=== PATIENT | female | born 1960 | race Caucasian/White ===

== ENCOUNTER 2019-11-23 22:22 | Emergency (ER) | payer OTHER, SELFPAY ==
--- NOTE | ~2019-11-23 | CT_ITS ---
EXAMINATION: CTA chest PE protocol DATE: 11/24/2019 09:28 CDT INDICATION: Shortness of breath, fever and chest pain. TECHNIQUE: Computed tomographic angiography (CTA) of the chest was performed with 100 mL Omnipaque-35 0 intravenous contrast. The dose-length product was 617.74 mGy-cm. Maximum intensity projection 3D-re constructions of the aorta and other arteries were constructed by the technologist on a separate work station. Automated exposure control and iterative reconstruction technique were employed. COMPARISON: Chest dated 11/24/2019 FINDINGS: Study technically limited by motion artifact. No large central pulmonary embolism. Evaluati on of the peripheral pulmonary arteries is not adequate. Heart size normal. No significant pleural or pericardial effusion. Mild thickening of the distal esophagus. No thoracic lymphadenopathy. There is patchy airspace consolidation of the upper, right middle and lower lobes, consistent with multifocal pneumonia. No pneumothorax. IMPRESSION: 1. Patchy bilateral airspace disease, consistent with multifocal pneumonia. 2: No large central pulmonary embolism. Evaluation of peripheral pulmonary arteries limited by motion artifact. 3: Mildly thickened esophagus, possibly secondary to reflux esophagitis. Reviewed, dictated and finalized at location A. IMPRESSION: 1. Patchy bilateral airspace disease, consistent with multifocal pneumonia. 2: No large central pulmonary embolism. Evaluation of peripheral pulmonary [place] limited by motion artifact. 3: Mildly thickened esophagus, possibly secondary to reflux esophagitis.
--- NOTE | ~2019-11-23 | XR_ITS ---
XR chest 1V portable 11/24/2019 00:54 Indication: Dyspnea, fever and urosepsis. COVID-19. Procedure: AP portable chest Comparison: 01/29/2015 Findings: Low lung volumes. Prominent bilateral interstitial opacities with fullness of the right hil um. The possible small left effusion. No pneumothorax. Impression: 1: Bilateral interstitial opacities with perihilar prevalence, edema versus pneumonia. Reviewed, dictated and finalized at location A. Impression: 1: Bilateral interstitial opacities with perihilar prevalence, edema versus pne umonia.
[2019-11-23 22:36] VITALS: BP 109/57; PULSE 91; RESP 22; TEMP 37.1; O2SAT 98
--- NOTE | 2019-11-23 22:39 | ED.SOB ---
HPI - SOB/Dyspnea General Chief Complaint: Unspecified Stated Complaint: fever, itches, SOB, headache, dizzy Time Seen by Provider: 11/23/19 22:39 Source: patient Mode of arrival: ambulatory Limitations: no limitations History of Present Illness HPI Narrative: 49-year-old woman with a history of COPD on home O2, type 2 diabetes, and obesity comes in today complaining of shortness of breath, dizziness, and diarrhea that started yesterday and a fever up to 101.8 today. She states that she is increasingly short of breath and has a cough productive of yellow-green sputum. She states that she has had frequent and painful urination over the last few days and thinks that she has a UTI. She denies any recent travel or sick contacts. She denies vomiting, rash, syncope. She states she fell little over a week ago and has back pain, right leg pain and left leg bruising. MD elicited complaint: shortness of breath and cough Pertinent past history: COPD, diabetes and tracheostomy Onset (ago): day(s) (2) Context: recent illness Timing: constant and progressively worsening Severity: moderate Exacerbating factors: exertion Relieving factors: oxygen and rest Known history of: COPD and diabetes Associated symptoms: fever, cough, sputum production and lower extremity pain Treatment prior to arrival: oxygen Related Data Home oxygen amount: 2 liters Home Medications Medication Instructions Recorded Confirmed Acetaminophen Extra Strength 1,000 mg PO TID 11/23/19 11/24/19 ascorbate calcium (vitamin C) 500 mg PO DAILY 11/23/19 11/24/19 aspirin [Adult Low Dose Aspirin] 81 mg PO DAILY 11/23/19 11/24/19 atorvastatin 20 mg PO DAILY 11/23/19 11/24/19 famotidine [Acid University Lecturer 20 mg PO BID 11/23/19 11/24/19 (famotidine)] fluticasone propionate [Flovent 1 puff INHALATION BID 11/23/19 11/24/19 HFA] gabapentin [Neurontin] 300 mg PO TID 11/23/19 11/24/19 hydrochlorothiazide 25 mg PO DAILY 11/23/19 11/24/19 ipratropium-albuterol 3 ml INHALATION Q4H PRN 11/23/19 11/24/19 levothyroxine [Synthroid] 88 mcg PO DAILY 11/23/19 11/24/19 lisinopril [Prinivil] 20 mg PO DAILY 11/23/19 11/24/19 loperamide [Imodium A-D] 2 mg PO Q4H PRN 11/23/19 11/24/19 magnesium 400 mg PO DAILY 11/23/19 11/24/19 metformin [Glucophage XR] 500 mg PO BID 11/23/19 11/24/19 sertraline 50 mg PO DAILY 11/23/19 11/24/19 simethicone [Gas-X Extra Strength] 125 mg PO TID 11/23/19 11/24/19 Allergies Allergy/AdvReac Type Severity Reaction Status Date / Time norepinephrine Allergy Intermediate Rash Verified 01/17/15 14:49 Review of Systems Constitutional: Constitutional: Denies chills, Reports fatigue, Reports fever(s) and Reports weakness Eyes: Eyes: Denies change in vision and Denies photophobia ENT: Denies dysphagia, Denies nasal congestion and Denies sore throat Cardiovascular: Cardiovascular: Denies chest pain and Denies radiating jaw, neck or arm pain Respiratory: Respiratory: Reports chest congestion, Reports cough, Reports dyspnea and Reports wheezing Gastrointestinal: Gastrointestinal: Denies abdominal pain, Reports diarrhea, Reports nausea and Denies vomiting Genitourinary: Genitourinary: Denies hematuria, Reports nocturia and Reports dysuria Musculoskeletal: Musculoskeletal: Reports back pain and Reports myalgias Integumentary/Breasts: Skin/Breast: Denies pruritus, Denies erythema and Denies rash Neurologic: Denies vertigo, Denies dizziness and Denies syncope Hematologic/Lymphatic: Hematologic/Lymphatic: Denies easy bleeding and Denies easy bruising Allergic/Immunologic: Allergic/Immunologic: Denies lip swelling and Denies wheezing [facility] Past Medical History Medical History (Updated 11/24/19 @ 05:06 by Sophia Mcdermott DO) 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 2014 Chronic kidney disease Chronic respiratory failure with hypoxia, on home O2 therapy COPD (chronic obstructive pulmonary disease) Diabetic peripheral neuropathy Diastolic CHF Dyslipidemia HSV infection Hypertensio
--- NOTE | 2019-11-23 22:52 | ECG_ITS ---
Measurements Intervals [place] Rate: 82 P: -8 MS: 119 QRS: 5 QRSD: 73 T: 65 QT: 457 QTc: 534 Interpretive Statements SINUS RHYTHM WITH SHORT MS INTERVAL LOW QRS VOLTAGE IN PRECORDIAL LEADS PROLONGED QT INTERVAL BASELINE ARTIFACT- I, III, AVL, AVF ABNORMAL ECG Electronically Signed On 11-24-2019 7:25:09 CDT by Grzegorz Tate D.O.
[2019-11-23] MEDS: SODIUM CHLORIDE 0.9% IV 1,000 ML 999 ML IV CONT ×2 (23:00→23:56)
[2019-11-23 23:20] VITALS: BP 114/56
[2019-11-23 23:21] LABS: Basophils Absolute Auto 0.02 K/mm3 (0.00-0.10); Basophils Percent Auto 0.1 % (0.0-1.0); Eosinophils Absolute Auto 0.46 K/mm3 (0.02-0.50); Eosinophils Percent Auto 3.3 % (1.0-6.0); Immature Granulocyte Absolute 0.08 K/mm3 (0.00-0.00); Immature Granulocyte Percent A 0.6 % (0.0-0.0); Lymphocytes Absolute Auto 0.34 K/mm3 (1.10-4.50); Lymphocytes Percent Auto 2.4 % (18.0-42.0); Mean Corpuscular HGB Conc 33.3 g/dL (32.0-36.0); Mean Corpuscular Hemoglobin 31.8 pg (27.0-31.0); Mean Corpuscular Volume 95.4 fL (78.0-102.0); Mean Platelet Volume 9.5 fl (9.2-11.8); Monocytes Absolute Auto 0.45 K/mm3 (0.10-0.90); Monocytes Percent Auto 3.2 % (2.0-11.0); Neutrophils Absolute Auto 12.7 K/mm3 (1.7-7.2); Neutrophils Percent Auto 90.4 % (50.0-70.0); Platelet Count Result 179 K/mm3 (150-420); Red Blood Count 4.09 M/mm3 (4.20-5.40); Red Cell Distribution Width 12.7 % (11.6-14.4)
[2019-11-23 23:30] VITALS: BP 110/60
[2019-11-23 23:36] LABS: INR 1.1; Partial Thromboplastin Time 27.8 SEC (22.3-31.6)
[2019-11-23 23:38] LABS: Lactic Acid Reflex 4.3 mmol/L (0.4-2.0)
[2019-11-23 23:45] LABS: D Dimer 1.66 mg/L (0.19-0.50)
[2019-11-23 23:46] LABS: Influenza Control Valid (Valid)
[2019-11-23 23:47] LABS: Creatine Kinase 25 U/L (26-192)
[2019-11-23 23:47] LABS: Alanine Aminotransferase 60 U/L (14-59); Albumin Level 3.1 g/dL (3.4-5.0); Alkaline Phosphatase 89 U/L (46-116); Anion Gap 15.2 mmol/L (7-16); Aspartate Amino Transferase 63 U/L (15-37); Bilirubin,Total 0.6 mg/dL (0.00-1.00); Blood Urea Nitrogen 25 mg/dL (7-18); CRP 8.8 mg/dL (0.0-0.9); Calcium 8.8 mg/dL (8.5-10.1); Carbon Dioxide 28 mmol/L (21-32); Chloride 103 mmol/L (98-108); Estimated CRCL calculation 38 ml/min; Estimated Glomerular Filt Rate 33; Glucose 225 mg/dL (70-99); Osmolality Calculated 305 mOsm/kg (285-295); Potassium 4.2 mmol/L (3.5-5.1); Sodium 142 mmol/L (136-145); Total Protein 6.5 g/dL (6.4-8.2)
[2019-11-23] MEDS: ACETAMINOPHEN 500 MG TABLET 1000 MG PO (23:49)
[2019-11-23 23:50] LABS: Appearance Urine Clear (Clear); Bilirubin Urine 1+ (Negative); Color Urine Yellow (Yellow); Glucose Urine UA Negative (Negative); Ketones Urine Trace (Negative); Leukocyte Esterase Ur 2+ LEU/UL (Negative); Nitrate Urine Negative (Negative); Protein Urine Trace (Negative); Specific Grav Ur 1.025 (1.010-1.020)
[2019-11-23 23:54] LABS: Add Urine Microscopic? YES; Bacteria Urine 1+ /hpf; Blood Urine Trace-Intact (Negative); Squamous Epithelial Cell Urine Moderate /hpf (Few); WBC Urine >75 /hpf (0-3)
[2019-11-24] VITALS: BP 112/46
[2019-11-24 00:14] VITALS: BP 99/47; PULSE 80; RESP 178; TEMP 36.9; O2SAT 98
--- NOTE | 2019-11-24 00:14 | PC.NURSE ---
[facility] called for potential transfer.
[2019-11-24 00:28] VITALS: BP 100/41; PULSE 78; RESP 18; O2SAT 98
[2019-11-24 00:58] VITALS: BP 131/60; PULSE 86; RESP 20; TEMP 37.2; O2SAT 99
[2019-11-24] MEDS: ALBUTEROL SULFATE (*SP) INHALER 4 PUFF INHALATION (01:21)
--- NOTE | 2019-11-24 01:34 | PC.NURSE ---
report given, no local ambulance having to wait for another county to transport
[2019-11-24 01:43] VITALS: BP 107/47; PULSE 81; RESP 16; O2SAT 97
[2019-11-24] MEDS: SODIUM CHLORIDE 0.9% IV 500 ML 999 ML IV CONT (02:03)
[2019-11-24 02:05] VITALS: BP 101/49; PULSE 80; RESP 18; TEMP 37.2; O2SAT 100
--- NOTE | 2019-11-24 02:07 | PC.NURSE ---
2liters IV fluids given in ER, 500 infusing to gravity upon transfer.
[2019-11-24 02:15] LABS: Reflex Lactic Acid Yes or No Add Lactic
[2019-11-26 13:28] LABS: SARS-CoV-2 RNA PCR Negative
== END 2019-11-24 02:06 | disposition short-term general hospital (02) ==
PROVIDERS: Emergency Provider Emergency Medicine; PCP Family Medicine
DX: A41.9 Sepsis, unspecified organism (principal); N39.0 Urinary tract infection, site not specified; N17.9 Acute kidney failure, unspecified; R65.21 Severe sepsis with septic shock; J44.9 Chronic obstructive pulmonary disease, unspecified; E11.42 Type 2 diabetes mellitus with diabetic polyneuropathy; Z20.828 Contact with and (suspected) exposure to other viral communicable diseases
CPT/HCPCS: 36415; 71045; 71275; 80053; 81001; 82550; 83605; 85025; 85380; 85610; 85730; 86140; 87040; 87086; 87635; 87804; 93005; 96361; 96365; 96367; 99285; A9270; C9803; J0696; J7030; J7040; Q9965; U0003

== ENCOUNTER 2019-11-24 04:10 | Inpatient (IN) | payer OTHER, SELFPAY ==
[2019-11-24] VITALS (21 sets, daily range): BP systolic 90–118; BP diastolic 41–72; PULSE 75–103; RESP 18–30; TEMP 36.3–37.8; O2SAT 89–98; BMI 39.2
--- NOTE | ~2019-11-24 | XR_ITS ---
EXAMINATION: XR chest 1V portable DATE: 12/03/2019 05:49 INDICATION: Bilateral infiltrates. TECHNIQUE: A single frontal view of the chest was obtained. COMPARISON: Chest single view 12/02/2019, CT abdomen and pelvis 11/29/2019 FINDINGS: There are airspace and interstitial opacities throughout the lungs bilaterally with an uppe r lung predominance. No pleural effusion or pneumothorax. The heart size is normal. A right subclavia n central venous catheter is seen with tip in the superior vena cava. IMPRESSION: 1. Stable diffuse lung disease, consistent with pneumonia versus acute respiratory distress syndrome (ARDS). Reviewed, dictated and finalized at location A. IMPRESSION: 1. Stable diffuse lung disease, consistent with pneumonia versus acute respirat ory distress syndrome (ARDS).
--- NOTE | ~2019-11-24 | US_ITS ---
EXAMINATION: US breast RT limited HISTORY: Redness and pain of the right chest wall, concern for abscess TECHNIQUE: Targeted ultrasound of the right chest wall is performed in the area of clinical interest. FINDINGS: There appears to be diffuse cellulitis of the right chest wall at the 11:00 location 15 cm from the nipple in the area of clinical interest. No drainable fluid is identified. Early phlegmon is a possibility. IMPRESSION: Diffuse cellulitis and possible early phlegmon in the right chest wall in the area of clinical concer n. No drainable fluid identified. BI-RADS Category 2: Benign finding(s). Reviewed, dictated and finalized at location A. IMPRESSION: Diffuse cellulitis and possible early phlegmon in the right chest wall in the a [place] of clinical concern. No drainable fluid identified. BI-RADS Category 2: Benign finding(s).
--- NOTE | ~2019-11-24 | CT_ITS ---
EXAMINATION: CT abdomen pelvis wo con EXAM DATE: 11/29/2019 19:08 INDICATION: Drop in hematocrit. Negative occult Blood. Negative for COVID 19 TECHNIQUE: Spiral CT of the abdomen and pelvis was performed without contrast. Axial, coronal and s agittal images were reviewed. The dose-length product (DLP) for this examination was 1652.61 mGy-cm. The exposure was tailored according to patient size (auto mA exposure control), and iterative recon struction (ASIR) was used as additional dose reduction technique. Comparison is made to prior examina tion from 11/18/2009. FINDINGS: The liver, spleen, adrenal glands and pancreas are unremarkable. There are cholecystectomy clips. There is moderate right renal and mild left renal atrophy. No obstructive nephropathy. Regio ns of bilateral renal cortical scarring. The uterus is unremarkable. The bladder is collapsed with Guadalupe catheter balloon anchor inside. There is no retroperitoneal or pelvic lymphadenopathy. Smal l umbilical fat-containing hernia. The appendix is normal. The stomach and small bowel are unremarkable. There is mild sigmoid colonic diverticulosis. There is no adjacent inflammatory change to suggest diverticulitis. No free intrape ritoneal gas. The heart is normal in size. There are no pericardial or pleural effusions. There i s rather extensive bibasilar ill-defined groundglass airspace disease with differential diagnosis inc luding acute lung injury from COVID 19, other infectious process, edema. There are no osteoblastic or osteolytic lesions identified. IMPRESSION: 1. Rather extensive bibasilar ill-defined groundglass airspace disease with differential diagnosis i ncluding acute lung injury from COVID 19, other infectious process, edema. 2. Mild sigmoid diverticulosis. 3. Renal atrophy. 4. No retroperitoneal hematoma. Reviewed, dictated and finalized at location A. IMPRESSION: 1. Rather extensive bibasilar ill-defined groundglass airspace disease with di fferential diagnosis including acute lung injury from COVID 19, other infectiou s process, edema. 2. Mild sigmoid diverticulosis. 3. Renal atrophy. 4. No retroperitoneal hematoma.
--- NOTE | ~2019-11-24 | XR_ITS ---
XR chest 1V portable 11/25/2019 06:30 Indication: Pneumonia. Procedure: AP portable chest Comparison: Comparison to multiple prior studies sequentially, with oldest reviewed study dated 02/2015. Findings: PICC line tip in the SVC. Stable diffuse bilateral airspace disease. Small left pleural eff usion. No pneumothorax. No acute osseous abnormality. Impression: 1: Stable diffuse bilateral airspace disease which may represent pneumonia or edema. 2: Small left pleural effusion. Reviewed, dictated and finalized at location A. Impression: 1: Stable diffuse bilateral airspace disease which may represent pneumonia or e abimbola. 2: Small left pleural effusion.
--- NOTE | ~2019-11-24 | XR_ITS ---
EXAMINATION: XR abdomen/kub 1V DATE: 11/28/2019 23:58 INDICATION: Abdominal pain TECHNIQUE: A supine view of the abdomen on 2 radiographs was obtained. COMPARISON: None. FINDINGS: The diaphragm is excluded from the [id number]. Gas is seen within the moderately distended stomach as well as throughout multiple portions of the normal caliber colon. No dilated gas-filled loops of bowel to suggest obstruction. Cholecystectomy clips in right upper quadrant. Atherosclerotic calcific ations in the pelvis. Mild lumbar spondylosis. IMPRESSION: 1. Normal bowel gas pattern. Reviewed, dictated and finalized at location A.
--- NOTE | ~2019-11-24 | US_ITS ---
EXAMINATION: US abdomen limited DATE: 11/26/2019 10:11 INDICATION: Elevated liver function tests TECHNIQUE: Multiple grayscale and Doppler ultrasound images of the abdomen were obtained. COMPARISON: CT dated 11/18/2009 FINDINGS: Increased liver echotexture, consistent with fatty infiltration. There is normal directional flow in the portal vein. The gallbladder surgically absent. The CBD measures 4 mm. IVC is patent. Pancreas wi thin normal limits. IMPRESSION: 1. Hepatic steatosis. 2: Status post cholecystectomy. Reviewed, dictated and finalized at location A.
--- NOTE | ~2019-11-24 | XR_ITS ---
XR chest 1V portable 11/28/2019 10:49 Indication: Follow-up infiltrate Procedure: AP portable chest Comparison: Comparison to multiple prior studies sequentially, with oldest reviewed study dated 07/2019. Findings: Central line tip in the SVC. No pneumothorax. There is persistent, slightly improved, bilat eral airspace disease which may represent edema or pneumonia. No pleural effusion or pneumothorax. Impression: 1: Possible slight improvement of bilateral airspace disease, edema versus pneumonia. Reviewed, dictated and finalized at location A. Impression: 1: Possible slight improvement of bilateral airspace disease, edema versus pneu monia.
--- NOTE | ~2019-11-24 | XR_ITS ---
XR chest port-a-cath/central 11/24/2019 06:28 Indication: Central line placement. Dyspnea. Procedure: AP portable chest Comparison: Comparison to multiple prior studies sequentially, with oldest reviewed study dated 10/21. Findings: Cardiomegaly with bilateral mixed interstitial and airspace disease most prominent centrall y. Small left pleural effusion. No pneumothorax. No acute osseous abnormality. Impression: 1: Bilateral mixed interstitial and airspace disease which may represent edema or pneumonia. 2: Small left pleural effusion. Reviewed, dictated and finalized at location A. Impression: 1: Bilateral mixed interstitial and airspace disease which may represent edema or pneumonia. 2: Small left pleural effusion.
--- NOTE | ~2019-11-24 | XR_ITS ---
EXAMINATION: XR chest 1V portable DATE: 11/26/2019 05:59 INDICATION: Pneumonia TECHNIQUE: frontal view of the chest was obtained. COMPARISON: Chest radiograph dated 11/25/2019 FINDINGS: Interval increase in patchy bilateral airspace opacities. Chronic blunting at the left costophrenic a ngle corresponding to a left paracardial fat pad on prior CT with no blunting at the vertebral phreni c angle. No pneumothorax or pleural effusion. The cardiomediastinal silhouette is normal. Right subcl ketan central venous catheter with distal tip at the midsuperior vena cava. IMPRESSION: 1. Increasing patchy bilateral airspace disease which could represent pneumonia or pulmonary edema. Reviewed, dictated and finalized at location A.
--- NOTE | ~2019-11-24 | XR_ITS ---
XR chest 1V portable DATE: 12/02/2019 06:19 INDICATION: Bilateral infiltrates TECHNIQUE: Portable upright AP chest on 12/02/2019 at 0536 hours COMPARISON: 12/11/2019 portable AP chest at 0509 hours FINDINGS: There are extensive bilateral pulmonary infiltrates, predominating particularly in the uppe r lung zones, right sided infiltrates greater than left side. There is no significant change since 12/01/2019. Right-sided central venous catheter tip overlies the superior vena cava. No pneumothorax or pleural e ffusion is evident. IMPRESSION: Persistent severe bilateral pulmonary infiltrates Reviewed, dictated and finalized at location A.
--- NOTE | ~2019-11-24 | XR_ITS ---
XR chest 1V portable DATE: 12/01/2019 06:12 INDICATION: Bilateral infiltrates TECHNIQUE: Portable AP chest on 12/11/2019 at 0509 hours COMPARISON: 11/30/2019 portable AP chest at 1158 hours FINDINGS: There are extensive bilateral pulmonary infiltrates throughout both lungs, right greater th an left, relatively stable since 12/10/2019. Right subclavian central venous catheter tip overlies the superior vena cava. No pleural effusion is evident. No pneumothorax is noted. Diffuse osteopenia. Surgical clips, right upper quadrant, consistent cholecystectomy. IMPRESSION: Persistent extensive severe bilateral pulmonary infiltrates Reviewed, dictated and finalized at location A.
--- NOTE | ~2019-11-24 | XR_ITS ---
XR chest 1V portable DATE: 11/30/2019 12:13 INDICATION: Bilateral pulmonary infiltrates. Shortness of breath, fever, chest pain. TECHNIQUE: Portable AP chest on 11/30/2019 at 1158 hours COMPARISON: 11/28/2019 portable AP chest FINDINGS: There are diffuse bilateral pulmonary infiltrates, moderately increased, particularly on th e left, since 11/28/2019; diffusion diagnosis includes pulmonary edema, pneumonia. No apparent pleural effusion. Heart size appears within normal range. Pulmonary vasculature appears i ncreased. Right-sided central venous catheter tip overlies the cephalad aspect of the superior vena cava. No pn eumothorax. IMPRESSION: Increased bilateral pulmonary infiltrates Reviewed, dictated and finalized at location A.
--- NOTE | ~2019-11-24 | XR_ITS ---
EXAMINATION: XR chest 1V portable DATE: 12/04/2019 05:55 INDICATION: Bilateral infiltrates. TECHNIQUE: A single frontal view of the chest was obtained. COMPARISON: Chest single view 12/03/2019 FINDINGS: There are airspace and interstitial opacities in all lung zones with an upper lung predomin ance. No pleural effusion or pneumothorax. The heart size is normal. A right subclavian central venou s catheter is seen with tip in the superior vena cava. IMPRESSION: 1. Stable diffuse lung disease, consistent with pneumonia versus acute respiratory distress syndrome (ARDS). Reviewed, dictated and finalized at location A. IMPRESSION: 1. Stable diffuse lung disease, consistent with pneumonia versus acute respirat ory distress syndrome (ARDS).
--- NOTE | 2019-11-24 03:13 | ADMGEN ---
This patient, Court Ybarra, was admitted to Intensive Care Unit-6 on 11/24/2019 at 0300. Patient/family oriented to hospital policies and general routines including ID bracelet, bed and alarms, visiting hours, pain management, procedures, bathroom and other care routines, personal items, smoking policy, room service/diet, and visiting hours. Valuables list has been completed. Information on how to activate the Rapid Response Team has been discussed. Patient/Family are encouraged to report perceived risks to care and to ask questions if they do not understand what they are told or what they should do.
--- NOTE | 2019-11-24 04:33 | PM.IMHP ---
H&P: HPI History of Present Illness Chief complaint: Shortness of breath and fever Narrative: Date and time of patient contact: 11/24/2019 at 4:[address] Ybarra is a 59 year old female with a past medical history chronic hypoxic respiratory failure, non STEMI, type 2 diabetes mellitus, obesity, paroxysmal atrial fibrillation and COPD with prior tracheostomy who presented to [facility] via private vehicle due to shortness of breath, cough and fever. The patient reports that she always has a cough that is productive of green sputum each morning. But now she has a dry cough that is been occurring all day for the last couple of days. Then she spiked a fever to 101.8 home that persisted for several hours before she came to the ER. The fever was accompanied by rigors and chills. She denies any recent ill contacts but her son is still working outside the house and may have had a contacts. She reports that she has been having dysuria and increased urinary frequency and urgency for at least a month. She reports the loss of sense of taste and smell. She denies any chest pain. She denies nasal congestion but has had mild sore throat. She has had increased body aches. She denies any nausea or vomiting but has had decreased appetite. Her last bowel movement was yesterday and was normally formed. She denies any hematochezia or melena. She has not had any hematuria. Extremity swelling. She denies having history of CHF but evidently did have diastolic heart failure back in 2014 according to prior H&P. She reports history of chronic dizziness and frequent falls since her complicated hospital course in 2014. She ambulates with a walker. She denies ever having been diagnosed with a CVA. She was last hospitalized for pneumonia in July. Review of Systems Review of Systems: Narrative: 12 systems were reviewed with pertinent positives and negatives per HPI. Except as documented in the HPI, all other systems were reviewed and are negative. [facility] Past Medical History Medical History (Updated 11/25/19 @ 00:00 by Sp Marin) 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 2014 Chronic kidney disease Chronic respiratory failure with hypoxia, on home O2 therapy COPD (chronic obstructive pulmonary disease) Diabetic peripheral neuropathy Diastolic CHF Dyslipidemia HSV infection Hypertension Hypothyroidism Paroxysmal atrial fibrillation Sepsis with critical illness myopathy and septic shock December 2014 Type 2 diabetes mellitus Urolithiasis Surgical History Surgical History History of History of cholecystectomy History of ear surgery History of tonsillectomy History of tracheostomy Family History Family History Father Cerebrovascular accident Hypertension Heart attack Mother Goiter Sibling Scarlet fever Skin cancer Parkinson disease Epilepsy Social History Social History (Updated 11/24/19 @ 08:45 by Sophia Mcdermott DO) Smoking packs per day: 1 Smoking cigarettes per day: 20.0 Years smoked: 25 Smoking pack-years: 25.00 Smoking status: Former smoker Tobacco type: cigarettes Smoking end date: 07/25/99 Alcohol intake: former Alcohol use details: She denies any history of heavy alcohol use. Substance use: never Living arrangements: with family Additional living arrangements comments: She lives with her only child. He works outside the house. 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 She is now on disability. Gender identity (if verbalized by the patient): Female Spiritual care concerns: No Agree to blood products: Yes Meds Home Medications and Allergies Home Medications Medication Instructions Recorded Confirmed Type Acetaminophen Extra Strength 1,000 mg PO TID 11/23/19
[2019-11-24] MEDS: SODIUM CHLORIDE 0.9% IV 1,000 ML 999 ML IV CONT (04:59)
[2019-11-24] MEDS: ACETAMINOPHEN 500 MG TABLET 1000 MG PO ×3 (04:59→20:59)
[2019-11-24] MEDS: SODIUM CHLORIDE 0.9% IV 1,000 ML 100 ML IV CONT (05:16)
[2019-11-24 05:22] LABS: Basophils Percent Auto 0.1 % (0.2-1.2); Eosinophils Absolute Auto 0.5 K/mm3 (0-0.3); Eosinophils Percent Auto 3.7 % (0-4.4); Hematocrit 35.7 % (37.0-47.0); Immature Granulocyte Absolute 0.06 K/mm3 (0.00-0.031); Immature Granulocyte Percent A 0.5 % (0-0.5); Lymphocytes Absolute Auto 0.47 K/mm3 (0.9-3.2); Lymphocytes Percent Auto 3.7 % (18.3-44.2); Mean Corpuscular HGB Conc 33.6 g/dl (32-36); Mean Corpuscular Hemoglobin 32.4 pg (26-34); Mean Corpuscular Volume 96.5 fl (80-100); Mean Platelet Volume 9.5 fl (7.4-10.4); Monocytes Absolute Auto 0.6 K/mm3 (0.1-0.6); Monocytes Percent Auto 4.5 % (2.6-8.5); Neutrophils Percent Auto 87.5 % (45.5-73.1); Platelet Count Result 145 k/mm3 (150-375); Red Cell Distribution Width 12.9 % (11.5-14.5); White Blood Count 12.6 K/mm3 (4.5-10.0)
[2019-11-24 05:34] LABS: Alanine Aminotransferase 50 U/L (4-35); Albumin Level 3.3 g/dL (3.5-5.1); Alkaline Phosphatase 103 U/L (38-126); Aspartate Amino Transferase 66 U/L (14-36); Bilirubin,Total 0.5 mg/dL (0.2-1.3); Blood Urea Nitrogen 23 mg/dL (7-17); Carbon Dioxide 26 mmol/L (22-30); Chloride 104 mmol/L (98-107); Estimated CRCL calculation 54 ml/min; Estimated Glomerular Filt Rate 50; Glucose 169 mg/dL (65-105); Lactate Dehydrogenase 478 U/L (313-618); Lactic Acid Reflex 2.8 mmol/L (0.7-2.1); Potassium 4.2 mmol/L (3.4-5.0); Sodium 138 mmol/L (137-145)
[2019-11-24] MEDS: LEVOTHYROXINE SODIUM 88 MCG TABLET PO (06:09)
[2019-11-24 06:11] LABS: Hemoglobin A1C 7.2 % (<5.7)
--- NOTE | 2019-11-24 06:22 | P.PCNBED_ITS ---
Procedures Central Line Placement Right SC: Central Line Date: 11/24/19 Central Line Time: 05:30 Discussed w/ the patient/family/POA,the placement of a central venous catheter, including its clinical necessity/indication & associated potential risks, benifits and alternatives.: Yes The patient/family/POA understand(s) and acknowledge(s) the need to proceed with central venous catheter insertion as an important element of the patient's clinical management.: Yes Time Out Performed: Yes Patient Position: trendelenburg Patient placed on monitor/pulse ox: Yes Provider Prep: mask, sterile gown, sterile gloves, Max. sterile barrier precautions, cap and hand hygiene Central line prep: Chlorhexidine scrub and sterile full body sheet applied Local anesthesia used: lidocaine 1% Amount of anesthesia used (ml): 10 Ultrasound used for placement: No Central line lumen inserted: triple [place]: 7 Length (cm): 17 Depth of Insertion (cm): 15 Post procedure: sutured in place, good blood return, all ports aspirated, flushed, capped, tegaderm and hemostatic disc Post procedure x-ray: tip of catheter in good position and no pneumothorax seen Patient tolerated procedure: well Additional comments: Successful placement of a right subclavian line on 1st attempt. No complications. Less than 5 mL of blood loss.
[2019-11-24] MEDS: DOPamine 400 MG/D5W 250 ML 400 MG/250 ML BAG 7.5 MG IV CONT (06:23)
[2019-11-24 06:25] LABS: Free T4 Free Thyroxine 1.14 ng/mL (0.78-2.19)
[2019-11-24 07:05] LABS: Hepatitis B Surface Antigen Negative (Negative)
[2019-11-24 07:11] LABS: HAV RESULT Negative (Negative); Hepatitis B Core IgM Result Negative (Negative)
[2019-11-24 07:22] LABS: Hepatitis C Virus Antibody Negative (Negative)
[2019-11-24] MEDS: ENOXAPARIN 40 MG/0.4 ML SYRINGE SUB-Q (09:08)
[2019-11-24] MEDS: MAGNESIUM OXIDE 400 MG TABLET PO (09:09)
[2019-11-24] MEDS: GABAPENTIN 300 MG CAPSULE PO ×3 (09:09→17:14)
[2019-11-24] MEDS: SERTRALINE HCL 50 MG TABLET PO (09:09)
[2019-11-24] MEDS: ATORVASTATIN 20 MG TABLET PO (09:09)
[2019-11-24] MEDS: SIMETHICONE 125 MG CHEW TAB PO ×3 (09:09→17:15)
[2019-11-24] MEDS: ASPIRIN 81 MG ENTERIC TABLET PO (09:09)
[2019-11-24] MEDS: FAMOTIDINE 20 MG TABLET PO ×2 (09:09→17:14)
[2019-11-24] MEDS: ASCORBIC ACID 500 MG TABLET PO (09:09)
[2019-11-24] MEDS: FLUTICASONE PROP 110 MCG INHALER 12 GM (*SP) 1 PUFF INHALATION ×2 (09:13→20:04)
--- NOTE | 2019-11-24 09:56 | WPDCNINT ---
Assessment and Plan Assessment and plan (1) Septic shock: Code(s): A41.9 - Sepsis, unspecified organism; R65.21 - Severe sepsis with septic shock Status: Acute Assessment and Plan: patient presented at the outside hospital with shortness of breath, cough, fevers, chills, hypotension refractory to IV fluid boluses - central line was inserted on 11/24/2019 - patient started on dopamine, will maintain mean arterial pressures > 65 mmHg. ( patient allergic to norepinephrine) - blood and urine cultures have been obtained - acute kidney injury, elevated LFTs likely related to decreased end organ perfusion - continue ceftriaxone and doxycycline (2) Suspected COVID-19 virus infection: Code(s): R68.89 - Other general symptoms and signs Status: Acute Assessment and Plan: patient being ruled out for COVID-19 virus - SARS-CoV-2 PCR has been sent and pending - place patient on droplet, airborne and contact precautions (3) Acute UTI: Code(s): N39.0 - Urinary tract infection, site not specified Status: Acute Assessment and Plan: UA revealed possible UTI, urine cultures are pending - continue ceftriaxone (4) Pneumonia: Code(s): J18.9 - Pneumonia, unspecified organism Status: Acute Assessment and Plan: continue antibiotics as above. - CTA lungs 11/24/2019 showed patchy bilateral airspace disease consistent with multifocal pneumonia. no large central pulmonary embolism mildly thickened esophagus - patient on 2 L oxygen via nasal cannula which she uses at home (5) Transaminitis: Code(s): R74.0 - Nonspecific elevation of levels of transaminase and lactic acid dehydrogenase [LDH] Status: Acute Assessment and Plan: elevated LFTs likely related to decreased perfusion - hepatitis panel is negative - continue to trend LFTs (6) Type 2 diabetes mellitus: Qualifiers: Diabetes mellitus complication detail: with polyneuropathy Diabetes mellitus complication status: with neurologic complications Diabetes mellitus [facility] insulin use: without [facility] use Qualified Code(s): E11.42 - Type 2 diabetes mellitus with diabetic polyneuropathy Code(s): E11.9 - Type 2 diabetes mellitus without complications Status: Acute Assessment and Plan: sliding scale insulin Accu-Cheks (7) Hypertension: Code(s): I10 - Essential (primary) hypertension Status: Acute Assessment and Plan: will hold all antihypertensives at this time patient is on tube before septic shock (8) COPD (chronic obstructive pulmonary disease): Qualifiers: COPD type: unspecified COPD Qualified Code(s): J44.9 - Chronic obstructive pulmonary disease, unspecified Code(s): J44.9 - Chronic obstructive pulmonary disease, unspecified Status: Acute Assessment and Plan: history of COPD, on albuterol, Atrovent and fluticasone inhalers (9) DVT prophylaxis: Code(s): Z29.9 - Encounter for prophylactic measures, unspecified Status: Acute Assessment and Plan: started Lovenox (10) Dietary counseling and surveillance: Code(s): Z71.3 - Dietary counseling and surveillance Status: Acute Assessment and Plan: patient with good p.o. intake for liquids and solids Additional Plan discussed with patient updated her with her condition and plan of care. I answered all questions. Code status: Full code Critical care time spent: 43 minutes Due to a high probability of clinically significant, life threatening deterioration, the patient required my highest level of preparedness to intervene emergently and I personally spent this critical care time directly and personally managing the patient. This critical care time included obtaining a history; examining the patient; pulse oximetry; ordering and review of studies; arranging urgent treatment with development of a management plan; e
--- NOTE | 2019-11-24 10:47 | PM.IMPN ---
Progress Note: A&P Assessment and Plan (1) Pneumonia: Qualifiers: Pneumonia type: due to unspecified organism Laterality: unspecified laterality Lung location: unspecified part of lung Qualified Code(s): J18.9 - Pneumonia, unspecified organism Code(s): J18.9 - Pneumonia, unspecified organism Status: Acute Assessment and Plan: Ceftriaxone and doxycycline (2) Septic shock: Code(s): A41.9 - Sepsis, unspecified organism; R65.21 - Severe sepsis with septic shock Status: Acute Assessment and Plan: Likely due to pneumonia Possible UTI Continue pressors and wean as possible Avoid volume overload Continue ceftriaxone and doxycycline day 1 (3) Acute UTI: Code(s): N39.0 - Urinary tract infection, site not specified Status: Acute Assessment and Plan: The patient has pyuria and bacteriuria with moderate amount of squamous cells. Continue ceftriaxone pending culture (4) COPD (chronic obstructive pulmonary disease): Qualifiers: COPD type: unspecified COPD Qualified Code(s): J44.9 - Chronic obstructive pulmonary disease, unspecified Code(s): J44.9 - Chronic obstructive pulmonary disease, unspecified Status: Acute Assessment and Plan: Without evidence of acute exacerbation. She has been placed on scheduled albuterol inhalers and Spiriva. Will avoid nebulizers given concern for COVID-19. Continue supplemental oxygen. The patient is currently maintained on her home O2 of 2 L. (5) Suspected COVID-19 virus infection: Code(s): R68.89 - Other general symptoms and signs Status: Acute Assessment and Plan: COVID-19 testing pending (6) Transaminitis: Code(s): R74.0 - Nonspecific elevation of levels of transaminase and lactic acid dehydrogenase [LDH] Status: Acute Assessment and Plan: Likely due to hepatic steatosis and septic shock (7) Type 2 diabetes mellitus: Qualifiers: Diabetes mellitus complication detail: with polyneuropathy Diabetes mellitus complication status: with neurologic complications Diabetes mellitus termite control servicer insulin use: without termite control servicer use Qualified Code(s): E11.42 - Type 2 diabetes mellitus with diabetic polyneuropathy Code(s): E11.9 - Type 2 diabetes mellitus without complications Status: Acute Assessment and Plan: Sliding scale insulin coverage (8) Hypertension: Qualifiers: Hypertension type: unspecified Qualified Code(s): I10 - Essential (primary) hypertension Code(s): I10 - Essential (primary) hypertension Status: Acute Assessment and Plan: Home medications due to shock Subjective Date/time seen: 11/24/19 10:47 Interval history: Admitted 11/22 that with pneumonia and sepsis with shock. 5/2 Feeling much better. Denied chest pain. No shortness of breath at rest. No GI or complaints. No abnormal bleeding. Review of Systems Review of Systems: All systems reviewed & are unremarkable except as noted in HPI and below Exam Narrative: Exam Narrative: HEENT: EOMI, PERRL, sclerae nonicteric, pharyngeal mucosa pink and intact NECK: No JVD CHEST: Slightly coarse breath sounds HEART: NL S1/S2, regular, no murmur ABDOMEN: BS+, soft, nontender, no mass, no bruits EXTREMITIES: No cyanosis, edema, or clubbing NEUROLOGIC: CN intact and symmetric to inspection. MUSCULOSKELETAL: Tone and strength symmetric. PSYCH: Alert. Oriented to person, place, and time. Objective Data Vital Signs Vital Signs: Vital Signs - 24 hr 11/24/19 03:34 11/24/19 03:59 11/24/19 04:00 Temperature 99.2 F Pulse Rate 75 75 Respiratory Rate 19 Blood Pressure 105/48 L Pulse Oximetry 96 97 11/24/19 06:00 11/24/19 08:00 11/24/19 09:13 Temperature 100.1 F H Pulse Rate 82 87 85 Respiratory Rate 18 Blood Pressure 92/50 L Pulse Oximetry 96 95 11/24/19 10:00 Temperature Pulse
[2019-11-24] MEDS: ONDANSETRON INJ 4 MG/2 ML VIAL IV PUSH (11:16)
[2019-11-24] MEDS: ALBUTEROL SULFATE (*SP) AEROSOL 1 PUFF 6 PUFF INHALATION ×3 (11:40→20:03)
[2019-11-24] MEDS: INSULIN ASPART (*BKC) 100 UNITS/ML SUB-Q ×2 (12:19→17:13)
[2019-11-24] MEDS: VASOPRESSIN INJ 100 UNITS in DEXTROSE 5% 95 ML IV CONT (12:20)
[2019-11-24] MEDS: CENTRAL LINE FLUSH 10 ML IV PUSH ×3 (14:44→20:53)
[2019-11-24 17:07] LABS: Glucose Point of Care 179 (65-105)
[2019-11-24 17:07] LABS: Glucose Point of Care 244 (65-105)
[2019-11-24 17:07] LABS: Glucose Point of Care 202 (65-105)
[2019-11-24 21:45] LABS: Glucose Point of Care 225 (65-105)
[2019-11-24 22:26] LABS: Blood Urea Nitrogen 21 mg/dL (7-17); Calcium 7.9 mg/dL (8.4-10.2); Carbon Dioxide 26 mmol/L (22-30); Chloride 101 mmol/L (98-107); Estimated CRCL calculation 54 ml/min; Estimated Glomerular Filt Rate 50; Glucose 221 mg/dL (65-105); Magnesium 1.7 mg/dL (1.6-2.3); Potassium 4.2 mmol/L (3.4-5.0); Sodium 133 mmol/L (137-145)
[2019-11-25] VITALS (28 sets, daily range): BP systolic 63–145; BP diastolic 40–77; PULSE 67–84; RESP 18–28; TEMP 36.3–38.1; O2SAT 86–100
--- NOTE | 2019-11-25 | ECG_ITS ---
Measurements Intervals [place] Rate: 77 P: 32 WA: 155 QRS: 4 QRSD: 92 T: 54 QT: 390 QTc: 444 Interpretive Statements SINUS RHYTHM BORDERLINE ST-T WAVE ABNORMALITY- DIFFUSE LEADS BASELINE ARTIFACT- I, II, III, AVR, AVL, AVF BORDERLINE ECG Electronically Signed On 11-27-2019 8:45:08 CDT by Grzegorz Tate D.O.
[2019-11-25 04:53] LABS: Hematocrit 29.2 % (37.0-47.0); Hemoglobin 9.7 g/dL (12.0-15.0); Mean Corpuscular HGB Conc 33.2 g/dl (32-36); Mean Corpuscular Hemoglobin 32.1 pg (26-34); Mean Corpuscular Volume 96.7 fl (80-100); Mean Platelet Volume 9.5 fl (7.4-10.4); Platelet Count Result 92 k/mm3 (150-375); Red Blood Count 3.02 M/mm3 (4.2-5.4); Red Cell Distribution Width 13.1 % (11.5-14.5); White Blood Count 7.5 K/mm3 (4.5-10.0)
[2019-11-25 05:25] LABS: Alanine Aminotransferase 60 U/L (4-35); Albumin Level 2.8 g/dL (3.5-5.1); Alkaline Phosphatase 83 U/L (38-126); Aspartate Amino Transferase 54 U/L (14-36); Bilirubin,Total 0.9 mg/dL (0.2-1.3); Blood Urea Nitrogen 24 mg/dL (7-17); CRP 26.4 mg/dL (<1.0); Calcium 8.1 mg/dL (8.4-10.2); Carbon Dioxide 27 mmol/L (22-30); Chloride 101 mmol/L (98-107); Estimated CRCL calculation 55 ml/min; Estimated Glomerular Filt Rate 50; Glucose 192 mg/dL (65-105); Magnesium 1.8 mg/dL (1.6-2.3); Sodium 132 mmol/L (137-145)
[2019-11-25] MEDS: CENTRAL LINE FLUSH 10 ML IV PUSH ×4 (05:29→23:48)
[2019-11-25] MEDS: LEVOTHYROXINE SODIUM 88 MCG TABLET PO (05:37)
[2019-11-25 06:09] LABS: Potassium 4.3 mmol/L (3.4-5.0)
[2019-11-25] MEDS: ONDANSETRON INJ 4 MG/2 ML VIAL IV PUSH (08:06)
[2019-11-25] MEDS: ALBUTEROL SULFATE (*SP) AEROSOL 1 PUFF 6 PUFF INHALATION ×4 (08:15→20:09)
[2019-11-25] MEDS: ACETAMINOPHEN 500 MG TABLET 1000 MG PO ×2 (08:15→18:33)
[2019-11-25] MEDS: FLUTICASONE PROP 110 MCG INHALER 12 GM (*SP) 1 PUFF INHALATION ×2 (08:15→20:09)
[2019-11-25] MEDS: SERTRALINE HCL 50 MG TABLET PO (08:16)
[2019-11-25] MEDS: GABAPENTIN 300 MG CAPSULE PO ×3 (08:16→16:57)
[2019-11-25] MEDS: SIMETHICONE 125 MG CHEW TAB PO ×3 (08:16→16:57)
[2019-11-25] MEDS: MAGNESIUM OXIDE 400 MG TABLET PO (08:16)
[2019-11-25] MEDS: FAMOTIDINE 20 MG TABLET PO ×2 (08:17→17:02)
[2019-11-25] MEDS: ATORVASTATIN 20 MG TABLET PO (08:17)
[2019-11-25] MEDS: ASCORBIC ACID 500 MG TABLET PO (08:18)
[2019-11-25] MEDS: ASPIRIN 81 MG ENTERIC TABLET PO (08:18)
[2019-11-25] MEDS: ENOXAPARIN 40 MG/0.4 ML SYRINGE SUB-Q (08:21)
[2019-11-25 08:31] LABS: Glucose Point of Care 182 (65-105)
[2019-11-25] MEDS: ALBUMIN HUMAN 25% 12.5 GM/50ML 100 ML IVPB ×4 (08:45→23:48)
--- NOTE | 2019-11-25 10:01 | WPDINTPN ---
Progress Note: A&P Assessment and Plan (1) Septic shock: Code(s): A41.9 - Sepsis, unspecified organism; R65.21 - Severe sepsis with septic shock Status: Acute Assessment and Plan: patient presented at the outside hospital with shortness of breath, cough, fevers, chills, hypotension refractory to IV fluid boluses - central line was inserted on 11/24/2019 - patient started on dopamine, will maintain mean arterial pressures > 65 mmHg. ( patient allergic to norepinephrine) she was tachycardic and dopamine was switched to vasopressin. - blood and urine cultures Are pending - acute kidney injury, elevated LFTs likely related to decreased end organ perfusion - with improvement - white blood cell count has normalized - continue ceftriaxone and doxycycline (2) Suspected COVID-19 virus infection: Code(s): R68.89 - Other general symptoms and signs Status: Acute Assessment and Plan: patient being ruled out for COVID-19 virus - SARS-CoV-2 PCR, has been resorbed here at [facility] since the swab at [facility] was not sent over. - place patient on droplet, airborne and contact precautions (3) Acute UTI: Code(s): N39.0 - Urinary tract infection, site not specified Status: Inactive Assessment and Plan: UA revealed possible UTI, urine cultures are pending - continue ceftriaxone (4) Pneumonia: Qualifiers: Laterality: unspecified laterality Lung location: unspecified part of lung Pneumonia type: due to unspecified organism Qualified Code(s): J18.9 - Pneumonia, unspecified organism Code(s): J18.9 - Pneumonia, unspecified organism Status: Acute Assessment and Plan: continue antibiotics as above. - CTA lungs 11/24/2019 showed patchy bilateral airspace disease consistent with multifocal pneumonia. no large central pulmonary embolism mildly thickened esophagus - patient on 2 L oxygen via nasal cannula which she uses at home (5) Transaminitis: Code(s): R74.0 - Nonspecific elevation of levels of transaminase and lactic acid dehydrogenase [LDH] Status: Acute Assessment and Plan: elevated LFTs likely related to decreased perfusion - hepatitis panel is negative - continue to trend LFTs (6) Type 2 diabetes mellitus: Qualifiers: Diabetes mellitus complication detail: with polyneuropathy Diabetes mellitus complication status: with neurologic complications Diabetes mellitus chcf insulin use: without buttermaker helper use Qualified Code(s): E11.42 - Type 2 diabetes mellitus with diabetic polyneuropathy Code(s): E11.9 - Type 2 diabetes mellitus without complications Status: Acute Assessment and Plan: sliding scale insulin Accu-Cheks (7) Hypertension: Qualifiers: Hypertension type: unspecified Qualified Code(s): I10 - Essential (primary) hypertension Code(s): I10 - Essential (primary) hypertension Status: Acute Assessment and Plan: will hold all antihypertensives at this time patient is on Vasopressin for septic shock (8) COPD (chronic obstructive pulmonary disease): Qualifiers: COPD type: unspecified COPD Qualified Code(s): J44.9 - Chronic obstructive pulmonary disease, unspecified Code(s): J44.9 - Chronic obstructive pulmonary disease, unspecified Status: Acute Assessment and Plan: history of COPD, on albuterol, Atrovent and fluticasone inhalers (9) DVT prophylaxis: Code(s): Z29.9 - Encounter for prophylactic measures, unspecified Status: Acute Assessment and Plan: continue Lovenox (10) Dietary counseling and surveillance: Code(s): Z71.3 - Dietary counseling and surveillance Status: Acute Assessment and Plan: patient with good p.o. intake for liquids and solids Additional Plan discussed with patient updated her with her condition and plan of care. I answered all questions.
[2019-11-25] MEDS: INSULIN ASPART (*BKC) 100 UNITS/ML SUB-Q ×2 (11:18→17:02)
[2019-11-25 11:28] LABS: Glucose Point of Care 237 (65-105)
--- NOTE | 2019-11-25 14:28 | PM.IMPN ---
Progress Note: A&P Assessment and Plan (1) Septic shock: Code(s): A41.9 - Sepsis, unspecified organism; R65.21 - Severe sepsis with septic shock Status: Acute Assessment and Plan: At due to pneumonia and possible UTI. Weaning pressors (vasopressin) Continue antibiotic therapy with Rocephin and doxycycline. Blood cultures and urine cultures obtained at [facility]. COVID-19 testing is pending. Will stop further IV fluid hydration as patient is having increased respiratory symptoms and review of chest x-ray looks as if the patient may be developing some fluid overload. (2) Acute UTI: Code(s): N39.0 - Urinary tract infection, site not specified Status: Inactive Assessment and Plan: The patient has pyuria and bacteriuria with moderate amount of squamous cells. She has been started on empiric antibiotic therapy with Rocephin. (3) COPD (chronic obstructive pulmonary disease): Qualifiers: COPD type: unspecified COPD Qualified Code(s): J44.9 - Chronic obstructive pulmonary disease, unspecified Code(s): J44.9 - Chronic obstructive pulmonary disease, unspecified Status: Acute Assessment and Plan: Without evidence of acute exacerbation. Continue home regimen Continue supplemental oxygen. Currently on her home O2 of 2 L. (4) Suspected COVID-19 virus infection: Code(s): R68.89 - Other general symptoms and signs Status: Acute Assessment and Plan: COVID-19 testing pending. Patient has QT prolongation on EKG from outside facility. QTC was 534. (5) Transaminitis: Code(s): R74.0 - Nonspecific elevation of levels of transaminase and lactic acid dehydrogenase [LDH] Status: Acute Assessment and Plan: Acute hepatitis panel negative. Likely due to his hepatic steatosis plus septic shock. Subjective Date/time seen: 11/25/19 14:28 Interval history: Admitted 11/22 that with pneumonia and sepsis with shock. 11/24. Feeling a little better each day. Denied chest pain. No shortness of breath at rest. No GI or complaints. No abnormal bleeding. Review of Systems Review of Systems: All systems reviewed & are unremarkable except as noted in HPI and below Exam Narrative: Exam Narrative: General: Moderately ill-appearing, obese HEENT: Mucous membranes are dry, no oral pharyngeal erythema, no scleral icterus Neck: Short neck, large neck circumference, no jvd Respiratory: CTA, NL effort Cardiovascular: Regular rate, regular rhythm Gastrointestinal: Obese, nontender, normoactive bowel sounds Skin: Non jaundice, no pallor, normal temperature, no rashes in skin folds Extremities: Feet are cool but it good cap refill and well perfused, no cyanosis, trace ankle edema Neurological: Alert and oriented, speech is clear, no facial asymmetry Psychiatric: Appropriate mood and affect, pleasant and cooperative Objective Data Vital Signs Vital Signs: Vital Signs - 24 hr 11/24/19 16:00 11/24/19 17:59 11/24/19 18:00 Temperature 97.8 F Pulse Rate 83 90 90 Respiratory Rate 24 H 20 Blood Pressure 90/72 L 108/58 L Pulse Oximetry 98 94 11/24/19 20:00 11/24/19 20:01 11/24/19 20:08 Temperature 99.0 F Pulse Rate 89 85 92 Respiratory Rate 26 H 30 H Blood Pressure 118/54 L Pulse Oximetry 95 96 11/24/19 22:00 11/24/19 22:01 11/24/19 23:31 Temperature 99.5 F Pulse Rate 82 83 79 Respiratory Rate 20 24 H Blood Pressure 112/41 L 105/45 L Pulse Oximetry 89 L 97 11/25/19 00:00 11/25/19 00:01 11/25/19 00:31 Temperature Pulse Rate 77 77 76 Respiratory Rate 21 H 19 Blood Pressure 90/45 L 92/44 L Pulse Oximetry 97 95 11/25/19 00:46 11/25/19 00:52 11/25/19 02:00 Temperature Pulse Rate 73 74 71 Respiratory Rate 22 H 21 H Blood Pressure 63/48 L 102/49 L Pulse Oximetry 94 94 11/25/19 02:01 11/25/19 04:00 11/25/19 04:01 Temperature 98.4 F Pulse Rate 70 68 68 Res
[2019-11-25 17:53] LABS: Glucose Point of Care 218 (65-105)
[2019-11-25 20:18] LABS: Troponin I < 0.012 ng/mL (0.000-0.034)
[2019-11-25 21:48] LABS: Glucose Point of Care 216 (65-105)
[2019-11-26] VITALS (13 sets, daily range): BP systolic 110–139; BP diastolic 41–88; PULSE 74–104; RESP 18–32; TEMP 36.7–37.7; O2SAT 90–98; BMI 41.7
--- NOTE | 2019-11-26 | ECHO_ITS ---
Patient Info Name: Court Ybarra Age: 59 years : 1960 Gender: Female Ht: 63 in Wt: 235 lbs BSA: 2.23 m2 HR: 103 bpm BP: 128 / 88 mmHg Heart Rhythm: Tachycardia, Atrial Fibrillation Technical Quality: Good Exam Date: 11/26/2019 2:45 PM Exam Location: [facility] Card Pulmonary Patient Status: Inpatient Admit Date: 11/24/2019 Staff Ordering Physician: Rosana Harrington MD Care Giver: Bryan Gipson, [place], RT Attending Provider: Sophia Mcdermott DO Referring Physician: Len GAVIRIA; Exam Type: CA echo doppler color flow Study Info Indications I50.9 - Heart failure, unspecified Complete two-dimensional, color flow and Doppler transthoracic echocardiogram is performed. Summary 1. Left ventricular systolic function is normal, estimated at 65-70%. 2. There is moderately increased left ventricular wall thickness. 3. There is no aortic valve stenosis. 4. There is trace mitral valve regurgitation. 5. There is mild tricuspid valve regurgitation. 6. Mild pulmonary hypertension, estimated pulmonary arterial systolic pressure is 41 mmHg. Left Ventricle Left ventricular chamber dimension is normal. Left ventricular systolic function is normal, estimated at 65-70%. There is moderately increased left ventricular wall thickness. The left ventricular diastolic function is indeterminate. Right Ventricle Right ventricular chamber dimension is normal. Right ventricular systolic function is normal. Left Atria Left atrial chamber dimension is normal. Right Atria Right atrial chamber dimension is normal. Aortic Valve The aortic valve is trileaflet. There is mild aortic valve sclerosis. There is no aortic valve stenosis. There is no aortic valve regurgitation. Pulmonic Valve The pulmonic valve is not well visualized. Mitral Valve The mitral valve has normal leaflets. There is trace mitral valve regurgitation. The mitral valve annulus is mildly calcified. Tricuspid Valve The tricuspid valve leaflets are normal. There is mild tricuspid valve regurgitation. Mild pulmonary hypertension, estimated pulmonary arterial systolic pressure is 41 mmHg. Pericardium/Pleural The pericardium appears normal. There is no pericardial effusion. Inferior Vena Cava Dilated inferior vena cava with >50% collapse upon inspiration consistent with elevated right atrial pressure, 10 mmHg. Aorta The aortic root size at the sinus of Valsalva is normal. Left Ventricular Outflow Tract Name Value Normal LVOT 2D LVOT Diameter 1.6 cm LVOT Doppler LVOT Peak Gradient 7 mmHg LVOT Mean Gradient 4 mmHg LVOT VTI 24 cm LVOT VTI/AV VTI Ratio 1.0 LVOT Stroke Volume 50 ml LVOT CO 7.3 l/min LVOT CI 3.3 l/min/m2 Mitral Valve Name Value Normal
[2019-11-26] MEDS: ONDANSETRON INJ 4 MG/2 ML VIAL IV PUSH (04:07)
[2019-11-26 04:17] LABS: Eosinophils Absolute Auto 0.4 K/mm3 (0-0.3); Eosinophils Percent Auto 5.8 % (0-4.4); Immature Granulocyte Absolute 0.03 K/mm3 (0.00-0.031); Immature Granulocyte Percent A 0.4 % (0-0.5); Immature Platelet Fraction Pct 3.8 % (0.9-11.2); Lymphocytes Absolute Auto 0.54 K/mm3 (0.9-3.2); Lymphocytes Percent Auto 7.3 % (18.3-44.2); Mean Corpuscular HGB Conc 33.3 g/dl (32-36); Mean Corpuscular Hemoglobin 32.1 pg (26-34); Mean Corpuscular Volume 96.4 fl (80-100); Monocytes Absolute Auto 0.3 K/mm3 (0.1-0.6); Monocytes Percent Auto 4.4 % (2.6-8.5); Neutrophils Absolute Auto 6.1 K/mm3 (1.3-6.7); Neutrophils Percent Auto 82.1 % (45.5-73.1); Platelet Count Result 99 k/mm3 (150-375); Red Cell Distribution Width 12.8 % (11.5-14.5); White Blood Count 7.4 K/mm3 (4.5-10.0)
[2019-11-26 04:31] LABS: D Dimer 0.96 ug/mL (<0.48)
[2019-11-26 04:37] LABS: Alanine Aminotransferase 77 U/L (4-35); Albumin Level 3.6 g/dL (3.5-5.1); Alkaline Phosphatase 89 U/L (38-126); Aspartate Amino Transferase 95 U/L (14-36); Bilirubin,Total 1.8 mg/dL (0.2-1.3); Blood Urea Nitrogen 24 mg/dL (7-17); Calcium 8.6 mg/dL (8.4-10.2); Carbon Dioxide 27 mmol/L (22-30); Chloride 96 mmol/L (98-107); Estimated CRCL calculation 51 ml/min; Estimated Glomerular Filt Rate 46; Glucose 174 mg/dL (65-105); Lactate Dehydrogenase 461 U/L (313-618); Phosphorus 2.3 mg/dL (2.5-4.5); Potassium 3.8 mmol/L (3.4-5.0); Sodium 132 mmol/L (137-145)
[2019-11-26 04:55] LABS: CRP 21.6 mg/dL (<1.0)
[2019-11-26] MEDS: ALBUMIN HUMAN 25% 12.5 GM/50ML 100 ML IVPB (05:27)
[2019-11-26] MEDS: CENTRAL LINE FLUSH 10 ML IV PUSH ×4 (05:28→22:42)
[2019-11-26] MEDS: LEVOTHYROXINE SODIUM 88 MCG TABLET PO (06:08)
[2019-11-26] MEDS: ACETAMINOPHEN 500 MG TABLET 1000 MG PO (06:14)
[2019-11-26] MEDS: ALBUTEROL SULFATE (*SP) AEROSOL 1 PUFF 6 PUFF INHALATION ×4 (08:32→19:48)
[2019-11-26] MEDS: FLUTICASONE PROP 110 MCG INHALER 12 GM (*SP) 1 PUFF INHALATION ×2 (08:32→19:50)
[2019-11-26] MEDS: FUROSEMIDE INJ 40 MG/4 ML VIAL (08:36)
[2019-11-26] MEDS: ASCORBIC ACID 500 MG TABLET PO (09:25)
[2019-11-26] MEDS: ASPIRIN 81 MG ENTERIC TABLET PO (09:25)
[2019-11-26] MEDS: ATORVASTATIN 20 MG TABLET PO (09:25)
[2019-11-26] MEDS: SIMETHICONE 125 MG CHEW TAB PO ×3 (09:26→17:12)
[2019-11-26] MEDS: ENOXAPARIN 40 MG/0.4 ML SYRINGE SUB-Q (09:26)
[2019-11-26] MEDS: GABAPENTIN 300 MG CAPSULE PO ×3 (09:26→17:11)
[2019-11-26] MEDS: FAMOTIDINE 20 MG TABLET PO ×2 (09:26→17:11)
[2019-11-26] MEDS: MAGNESIUM OXIDE 400 MG TABLET PO (09:26)
[2019-11-26] MEDS: SERTRALINE HCL 50 MG TABLET PO (09:26)
--- NOTE | 2019-11-26 09:47 | PM.IMPN ---
Progress Note: A&P Assessment and Plan (1) Septic shock: Code(s): A41.9 - Sepsis, unspecified organism; R65.21 - Severe sepsis with septic shock Status: Acute Assessment and Plan: Due to pneumonia Weaned off pressors (vasopressin) 5 Continue ceftriaxone and doxycycline day 3 Blood cultures and urine and stool cultures all negative COVID-19 testing NEGATIVE (2) Acute UTI: Code(s): N39.0 - Urinary tract infection, site not specified Status: Inactive Assessment and Plan: URINE CULTURE NEGATIVE NO UTI (3) COPD (chronic obstructive pulmonary disease): Qualifiers: COPD type: unspecified COPD Qualified Code(s): J44.9 - Chronic obstructive pulmonary disease, unspecified Code(s): J44.9 - Chronic obstructive pulmonary disease, unspecified Status: Acute Assessment and Plan: Without evidence of acute exacerbation. Continue home regimen Continue supplemental oxygen at her baseline of 2 L. (4) Suspected COVID-19 virus infection: Code(s): R68.89 - Other general symptoms and signs Status: Acute Assessment and Plan: COVID-19 testing NEGATIVE (5) Transaminitis: Code(s): R74.0 - Nonspecific elevation of levels of transaminase and lactic acid dehydrogenase [LDH] Status: Acute Assessment and Plan: Acute hepatitis panel negative. Likely due to his hepatic steatosis plus septic shock U/s with steatosis, no GB, no CBD dilatation 11/25 abd pain may be due to gastritis, however if continued increased LFT's CBD stone/spasm must be considered Trend LFTs Subjective Date/time seen: 11/26/19 09:47 Interval history: Admitted 11/22 that with pneumonia and sepsis with shock. 11/25. Tired today. Appetite still not robust. C/o upper abdominal discomfort. Mild nausea. Aching. Mild to moderate. Denied chest pain. No shortness of breath at rest. No GI or complaints. No abnormal bleeding. Review of Systems Review of Systems: All systems reviewed & are unremarkable except as noted in HPI and below Exam Narrative: Exam Narrative: General: Moderately ill-appearing, obese HEENT: Mucous membranes are dry, no oral pharyngeal erythema, no scleral icterus Neck: Short neck, large neck circumference, no jvd Respiratory: Coarse BS, NL effort Cardiovascular: Regular rate, regular rhythm Gastrointestinal: Obese, nontender, normoactive bowel sounds, MILD RUQ AND EPIGASTRIC TENDERNESS Skin: Non jaundice, no pallor, normal temperature, no rashes in skin folds Extremities: Feet are cool but it good cap refill and well perfused, no cyanosis, trace ankle edema Neurological: Alert and oriented, speech is clear, no facial asymmetry Psychiatric: Appropriate mood and affect, pleasant and cooperative Objective Data Vital Signs Vital Signs: Vital Signs - 24 hr 11/25/19 10:00 11/25/19 10:01 11/25/19 11:15 Temperature Pulse Rate 70 70 71 Respiratory Rate 18 20 Blood Pressure 119/56 L 124/55 L Pulse Oximetry 97 95 11/25/19 11:16 11/25/19 12:00 11/25/19 14:00 Temperature 97.6 F Pulse Rate 75 70 Respiratory Rate Blood Pressure Pulse Oximetry 11/25/19 14:01 11/25/19 16:00 11/25/19 18:00 Temperature 97.3 F L Pulse Rate 70 68 82 Respiratory Rate 21 H 20 Blood Pressure 130/54 L 119/77 Pulse Oximetry 97 100 11/25/19 18:01 11/25/19 20:00 11/25/19 20:15 Temperature 100.5 F H Pulse Rate 84 77 80 Respiratory Rate 22 H 28 H 24 H Blood Pressure 142/65 H 145/54 H Pulse Oximetry 93 94 95 11/25/19 22:00 11/26/19 00:00 11/26/19 02:00 Temperature 100 F H Pulse Rate 77 79 74 Respiratory Rate 20 22 H 18 Blood Pressure 125/60 130/59 L 132/88 Pulse Oximetry 96 94 96 11/26/19 04:00 11/26/19 06:00 11/26/19 08:38 Temperature 98.8 F Pulse Rate 75 104 H Respiratory Rate 24 H 27 H Blood Pressure 110/51 L 128/88 Pulse Oximetry 97 92 94 Intake/Output Intake/Outpu
--- NOTE | 2019-11-26 11:20 | WPDINTPN ---
Progress Note: A&P Assessment and Plan (1) Septic shock: Code(s): A41.9 - Sepsis, unspecified organism; R65.21 - Severe sepsis with septic shock Status: Acute Assessment and Plan: patient presented at the outside hospital with shortness of breath, cough, fevers, chills, hypotension refractory to IV fluid boluses - central line was inserted on 11/24/2019 - patient OFF vasopressin - blood and urine cultures are negative - throat culture negative for group a strep - acute kidney injury, elevated LFTs likely related to decreased end organ perfusion - white blood cell count has normalized - continue ceftriaxone and doxycycline (2) Suspected COVID-19 virus infection: Code(s): R68.89 - Other general symptoms and signs Status: Acute Assessment and Plan: patient being ruled out for COVID-19 virus - SARS-CoV-2 PCR pending - place patient on droplet, airborne and contact precautions (3) Acute UTI: Code(s): N39.0 - Urinary tract infection, site not specified Status: Inactive Assessment and Plan: UA revealed possible UTI, urine culture is negative - continue ceftriaxone (4) Pneumonia: Qualifiers: Pneumonia type: due to unspecified organism Laterality: unspecified laterality Lung location: unspecified part of lung Qualified Code(s): J18.9 - Pneumonia, unspecified organism Code(s): J18.9 - Pneumonia, unspecified organism Status: Acute Assessment and Plan: continue antibiotics as above. - CTA lungs 11/24/2019 showed patchy bilateral airspace disease consistent with multifocal pneumonia. no large central pulmonary embolism mildly thickened esophagus - patient on 2 L oxygen via nasal cannula which she uses at home (5) Transaminitis: Code(s): R74.0 - Nonspecific elevation of levels of transaminase and lactic acid dehydrogenase [LDH] Status: Acute Assessment and Plan: elevated LFTs likely related to decreased perfusion - hepatitis panel is negative - continue to trend LFTs - right upper quadrant ultrasound pending results (6) Type 2 diabetes mellitus: Qualifiers: Diabetes mellitus complication detail: with polyneuropathy Diabetes mellitus complication status: with neurologic complications Diabetes mellitus joint terminal attack controller insulin use: without shelter use Qualified Code(s): E11.42 - Type 2 diabetes mellitus with diabetic polyneuropathy Code(s): E11.9 - Type 2 diabetes mellitus without complications Status: Acute Assessment and Plan: sliding scale insulin Accu-Cheks (7) Hypertension: Qualifiers: Hypertension type: unspecified Qualified Code(s): I10 - Essential (primary) hypertension Code(s): I10 - Essential (primary) hypertension Status: Acute Assessment and Plan: antihypertensives were on hold as patient was on vasopressin for septic shock (8) COPD (chronic obstructive pulmonary disease): Qualifiers: COPD type: unspecified COPD Qualified Code(s): J44.9 - Chronic obstructive pulmonary disease, unspecified Code(s): J44.9 - Chronic obstructive pulmonary disease, unspecified Status: Acute Assessment and Plan: history of COPD, on albuterol, Atrovent and fluticasone inhalers (9) DVT prophylaxis: Code(s): Z29.9 - Encounter for prophylactic measures, unspecified Status: Acute Assessment and Plan: continue Lovenox (10) Dietary counseling and surveillance: Code(s): Z71.3 - Dietary counseling and surveillance Status: Acute Assessment and Plan: patient with good p.o. intake for liquids and solids Additional Plan discussed with patient and updated her with her condition and plan of care. I answered all questions. Code status: Full code Critical care time spent: 32 minutes Due to a high probability of clinically significant, life threatening deterioration, the patien
[2019-11-26 11:43] LABS: Hepatitis B Surface Antigen Negative (Negative)
[2019-11-26 11:49] LABS: HAV RESULT Negative (Negative); Hepatitis B Core IgM Result Negative (Negative)
[2019-11-26 12:00] LABS: Hepatitis C Virus Antibody Negative (Negative)
[2019-11-26 12:17] LABS: Glucose Point of Care 204 (65-105)
[2019-11-26 13:28] LABS: SARS-CoV-2 RNA PCR Negative
[2019-11-26] MEDS: INSULIN ASPART (*BKC) 100 UNITS/ML SUB-Q (13:58)
--- NOTE | 2019-11-26 16:20 | PC.NURSE ---
This patient, Court Ybarra, was received from [ICU ] on 11/26/19 at 1524. Personal belongings list checked and signed. Patient/family oriented to unit policies and routines Kevin LOPEZ RN
[2019-11-26 20:29] LABS: Glucose Point of Care 184 (65-105)
[2019-11-26 23:14] LABS: Glucose Point of Care 184 (65-105)
[2019-11-27] VITALS (12 sets, daily range): BP systolic 107–149; BP diastolic 47–96; PULSE 89–124; RESP 18–30; TEMP 36.4–37.7; O2SAT 91–97
[2019-11-27] MEDS: CENTRAL LINE FLUSH 10 ML IV PUSH ×3 (06:23→23:50)
[2019-11-27] MEDS: LEVOTHYROXINE SODIUM 88 MCG TABLET PO (06:23)
[2019-11-27 06:41] LABS: Glucose Point of Care 175 (65-105)
[2019-11-27 06:41] LABS: Hematocrit 28.6 % (37.0-47.0); Hemoglobin 9.5 g/dL (12.0-15.0); Mean Corpuscular HGB Conc 33.2 g/dl (32-36); Mean Corpuscular Hemoglobin 32.3 pg (26-34); Mean Corpuscular Volume 97.3 fl (80-100); Platelet Count Result 151 k/mm3 (150-375); Red Blood Count 2.94 M/mm3 (4.2-5.4); Red Cell Distribution Width 13.1 % (11.5-14.5); White Blood Count 12.4 K/mm3 (4.5-10.0)
[2019-11-27 06:53] LABS: Blood Urea Nitrogen 28 mg/dL (7-17); Calcium 8.6 mg/dL (8.4-10.2); Carbon Dioxide 26 mmol/L (22-30); Chloride 95 mmol/L (98-107); Estimated CRCL calculation 51 ml/min; Estimated Glomerular Filt Rate 46; Glucose 173 mg/dL (65-105); Magnesium 1.8 mg/dL (1.6-2.3); Phosphorus 1.9 mg/dL (2.5-4.5); Potassium 3.7 mmol/L (3.4-5.0); Sodium 132 mmol/L (137-145)
[2019-11-27] MEDS: ONDANSETRON INJ 4 MG/2 ML VIAL IV PUSH (08:11)
--- NOTE | 2019-11-27 08:35 | PCOTNOTE ---
OT evaluation attempted. Patient nauseous and dry heaving. Requesting OT come back later. Will attempt OT evaluation at later time
[2019-11-27] MEDS: ALBUTEROL SULFATE (*SP) AEROSOL 1 PUFF 6 PUFF INHALATION ×4 (08:53→20:39)
[2019-11-27] MEDS: FLUTICASONE PROP 110 MCG INHALER 12 GM (*SP) 1 PUFF INHALATION ×2 (08:54→20:40)
[2019-11-27] MEDS: POTASSIUM PHOS,M-BASIC-D-BASIC 20 MMOL in SODIUM CHLORIDE 0.9% IV 250 ML 64 MMOL IVPB (10:45)
[2019-11-27] MEDS: PROMETHAZINE HCL 25 MG/ML AMPUL 12.5 MG IV PUSH ×3 (10:45→20:49)
[2019-11-27] MEDS: SODIUM CHLORIDE 0.9% INJ 20 ML 60 ML ×2 (10:46→16:23)
--- NOTE | 2019-11-27 11:12 | PM.IMPN ---
Progress Note: A&P Assessment and Plan (1) Septic shock: Code(s): A41.9 - Sepsis, unspecified organism; R65.21 - Severe sepsis with septic shock Status: Acute Assessment and Plan: Due to pneumonia Weaned off pressors (vasopressin) 5/3 Continue ceftriaxone and doxycycline day 4 Blood cultures and urine and stool cultures all negative COVID-19 testing NEGATIVE (2) COPD (chronic obstructive pulmonary disease): Qualifiers: COPD type: unspecified COPD Qualified Code(s): J44.9 - Chronic obstructive pulmonary disease, unspecified Code(s): J44.9 - Chronic obstructive pulmonary disease, unspecified Status: Acute Assessment and Plan: Without evidence of acute exacerbation. Continue home regimen Continue supplemental oxygen at her baseline of 2 L. (3) Suspected COVID-19 virus infection: Code(s): R68.89 - Other general symptoms and signs Status: Acute Assessment and Plan: COVID-19 testing NEGATIVE (4) Transaminitis: Code(s): R74.0 - Nonspecific elevation of levels of transaminase and lactic acid dehydrogenase [LDH] Status: Acute Assessment and Plan: Acute hepatitis panel negative. Likely due to his hepatic steatosis plus septic shock U/s with steatosis, no GB, no CBD dilatation / abd pain may be due to gastritis, however if continued increased LFT's CBD stone/spasm must be considered Trend LFTs Nausea and vomiting thought secondary to ileus secondary to pneumonia, continue supportive care Subjective Date/time seen: 11/27/19 11:12 Interval history: Date of visit 11/26. Admitted 11/22 that with pneumonia and sepsis with shock. Nauseated more today with vomiting Right upper quadrants negative Denied chest pain. No shortness of breath at rest. No GI or complaints. No abnormal bleeding. Exam Narrative: Exam Narrative: Blood pressure 130/64 pulse 74 saturating 97% but on 5 L General: Moderately ill-appearing, obese HEENT: , no scleral icterus Neck: Short neck, large neck circumference, no jvd Respiratory: Coarse BS, NL effort Cardiovascular: Regular rate, regular rhythm Gastrointestinal: Obese, nontender, bowel soundsdecreased, slightly distended Skin: Non jaundice, no pallor, normal temperature, no rashes Extremities: Feet are cool but it good cap refill and well perfused, Neurological: Alert and oriented, speech is clear, no facial asymmetry Psychiatric: Appropriate mood and affect, pleasant and cooperative Objective Data Vital Signs Vital Signs: Vital Signs - 24 hr 11/26/19 12:00 11/26/19 14:00 11/26/19 15:25 Temperature 37.1 C 37.2 C Pulse Rate 90 96 84 Respiratory Rate 22 H 24 H 22 H Blood Pressure 131/54 L 115/71 139/52 L Pulse Oximetry 94 98 96 11/26/19 18:40 11/26/19 20:23 11/26/19 22:00 Temperature 36.8 C Pulse Rate 86 91 90 Respiratory Rate 32 H 22 H Blood Pressure 129/41 L Pulse Oximetry 94 92 94 11/27/19 02:00 11/27/19 06:00 11/27/19 08:47 Temperature 36.6 C 36.6 C Pulse Rate 93 89 Respiratory Rate 20 22 H Blood Pressure 129/47 L 127/51 L Pulse Oximetry 91 93 95 11/27/19 08:49 11/27/19 10:00 Temperature 36.7 C Pulse Rate 96 94 Respiratory Rate 20 18 Blood Pressure 130/63 Pulse Oximetry 97 Intake/Output Intake/Output: Intake & Output 11/24/19 11/25/19 11/26/19 11/27/19 23:59 23:59 23:59 23:59 Intake Total 2573 1710 1694.5 1060 Output Total 800 1050 2650 750 Balance 1773 660 -955.5 310 Meds/Results Medications: Active Medications Generic Name Dose Route Start Last Admin Trade Name Freq PRN Reason Stop Dose Admin Acetaminophen 1,000 mg 11/24/19 04:06 11/26/19 06:14 Tylenol Tablet PO 12/24/19 09:01 1,000 mg TID PRN Administration Pain Rated 1-3 Albuterol 6 puff 11/24/19 08:00 11/27/19 08:53 Proventil Hfa INHALATION 6 puff QIDRT FELICIA Administration Ascorbic Acid 500 mg 11/24/19 09:00 0
[2019-11-27] MEDS: ENOXAPARIN 40 MG/0.4 ML SYRINGE SUB-Q (11:36)
[2019-11-27] MEDS: SERTRALINE HCL 50 MG TABLET PO (11:37)
[2019-11-27] MEDS: MAGNESIUM OXIDE 400 MG TABLET PO (11:40)
[2019-11-27] MEDS: FAMOTIDINE 20 MG TABLET PO ×2 (11:40→17:03)
[2019-11-27] MEDS: ASPIRIN 81 MG ENTERIC TABLET PO (11:40)
[2019-11-27] MEDS: ASCORBIC ACID 500 MG TABLET PO (11:40)
[2019-11-27] MEDS: GABAPENTIN 300 MG CAPSULE PO ×3 (11:40→17:03)
[2019-11-27] MEDS: ATORVASTATIN 20 MG TABLET PO (11:40)
[2019-11-27] MEDS: SIMETHICONE 125 MG CHEW TAB PO ×3 (11:41→17:04)
[2019-11-27 12:48] LABS: Glucose Point of Care 230 (65-105)
[2019-11-27] MEDS: INSULIN ASPART (*BKC) 100 UNITS/ML SUB-Q ×2 (12:53→17:07)
[2019-11-27] MEDS: SODIUM CHLORIDE 0.9% IV 1,000 ML 75 ML IV CONT (12:54)
[2019-11-27 17:20] LABS: Glucose Point of Care 202 (65-105)
[2019-11-27 23:23] LABS: Glucose Point of Care 252 (65-105)
[2019-11-28] VITALS (14 sets, daily range): BP systolic 102–160; BP diastolic 50–65; PULSE 82–125; RESP 22–32; TEMP 36.3–37.3; O2SAT 91–100
[2019-11-28 04:09] LABS: Pneumococcal Antigen Urine Not Detected (Not Detected)
[2019-11-28] MEDS: CENTRAL LINE FLUSH 10 ML IV PUSH ×3 (05:59→21:32)
[2019-11-28] MEDS: SODIUM CHLORIDE 0.9% IV 1,000 ML 75 ML IV CONT ×2 (05:59→21:31)
[2019-11-28] MEDS: LEVOTHYROXINE SODIUM 88 MCG TABLET PO (05:59)
[2019-11-28 06:12] LABS: Basophils Percent Auto 0.2 % (0.2-1.2); Eosinophils Absolute Auto 0.2 K/mm3 (0-0.3); Hematocrit 24.9 % (37.0-47.0); Hemoglobin 8.1 g/dL (12.0-15.0); Immature Granulocyte Absolute 0.32 K/mm3 (0.00-0.031); Immature Granulocyte Percent A 1.6 % (0-0.5); Lymphocytes Percent Auto 8.2 % (18.3-44.2); Mean Corpuscular HGB Conc 32.5 g/dl (32-36); Mean Corpuscular Hemoglobin 32.5 pg (26-34); Mean Platelet Volume 9.8 fl (7.4-10.4); Monocytes Absolute Auto 1.1 K/mm3 (0.1-0.6); Monocytes Percent Auto 5.6 % (2.6-8.5); Neutrophils Absolute Auto 16.4 K/mm3 (1.3-6.7); Neutrophils Percent Auto 83.4 % (45.5-73.1); Nucleated Red Blood Cells Absolute Auto 0.1 K/mm3 (0.0-0.012); Nucleated Red Blood Cells Perc 0.3 % (0.0-0.2); Platelet Count Result 182 k/mm3 (150-375); Red Blood Count 2.49 M/mm3 (4.2-5.4); Red Cell Distribution Width 13.3 % (11.5-14.5); White Blood Count 19.6 K/mm3 (4.5-10.0)
[2019-11-28 06:24] LABS: Alanine Aminotransferase 54 U/L (4-35); Albumin Level 3.4 g/dL (3.5-5.1); Alkaline Phosphatase 103 U/L (38-126); Aspartate Amino Transferase 32 U/L (14-36); Bilirubin Direct 0.9 mg/dL (0-0.3); Bilirubin,Total 4.5 mg/dL (0.2-1.3); Blood Urea Nitrogen 42 mg/dL (7-17); Calcium 8.8 mg/dL (8.4-10.2); Carbon Dioxide 30 mmol/L (22-30); Chloride 98 mmol/L (98-107); Estimated CRCL calculation 62 ml/min; Estimated Glomerular Filt Rate 56; Glucose 246 mg/dL (65-105); Phosphorus 2.2 mg/dL (2.5-4.5); Potassium 4.1 mmol/L (3.4-5.0); Sodium 135 mmol/L (137-145)
[2019-11-28 08:01] LABS: Glucose Point of Care 244 (65-105)
[2019-11-28] MEDS: FLUTICASONE PROP 110 MCG INHALER 12 GM (*SP) 1 PUFF INHALATION ×2 (08:06→19:57)
[2019-11-28] MEDS: ALBUTEROL SULFATE (*SP) AEROSOL 1 PUFF 6 PUFF INHALATION ×4 (08:06→19:57)
[2019-11-28] MEDS: SERTRALINE HCL 50 MG TABLET PO (08:15)
[2019-11-28] MEDS: POTASSIUM/PHOSPHORUS/SODIUM 1.5 GM PACKET 1 PACKET PO ×2 (08:15→16:27)
[2019-11-28] MEDS: FAMOTIDINE 20 MG TABLET PO ×2 (08:15→16:27)
[2019-11-28] MEDS: GABAPENTIN 300 MG CAPSULE PO ×3 (08:15→16:26)
[2019-11-28] MEDS: SIMETHICONE 125 MG CHEW TAB PO ×3 (08:15→16:27)
[2019-11-28] MEDS: ASCORBIC ACID 500 MG TABLET PO (08:16)
[2019-11-28] MEDS: ASPIRIN 81 MG ENTERIC TABLET PO (08:16)
[2019-11-28] MEDS: ATORVASTATIN 20 MG TABLET PO (08:16)
[2019-11-28] MEDS: ENOXAPARIN 40 MG/0.4 ML SYRINGE SUB-Q (08:16)
[2019-11-28] MEDS: MAGNESIUM OXIDE 400 MG TABLET PO (08:16)
[2019-11-28] MEDS: INSULIN ASPART (*BKC) 100 UNITS/ML SUB-Q ×3 (08:33→17:29)
[2019-11-28 12:14] LABS: Glucose Point of Care 255 (65-105)
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
--- NOTE | 2019-11-28 13:53 | PM.IMPN ---
Progress Note: A&P Assessment and Plan (1) Septic shock: Code(s): A41.9 - Sepsis, unspecified organism; R65.21 - Severe sepsis with septic shock Status: Acute Assessment and Plan: Due to pneumonia Weaned off pressors (vasopressin) 5/ Continue ceftriaxone and doxycycline day 4 Blood cultures and urine and stool cultures all negative COVID-19 testing NEGATIVE (2) COPD (chronic obstructive pulmonary disease): Qualifiers: COPD type: unspecified COPD Qualified Code(s): J44.9 - Chronic obstructive pulmonary disease, unspecified Code(s): J44.9 - Chronic obstructive pulmonary disease, unspecified Status: Acute Assessment and Plan: Without evidence of acute exacerbation. Continue home regimen Continue supplemental oxygen at her baseline of 2 L. (3) Suspected COVID-19 virus infection: Code(s): R68.89 - Other general symptoms and signs Status: Acute Assessment and Plan: COVID-19 testing NEGATIVE (4) Transaminitis: Code(s): R74.0 - Nonspecific elevation of levels of transaminase and lactic acid dehydrogenase [LDH] Status: Acute Assessment and Plan: Acute hepatitis panel negative. Likely due to his hepatic steatosis plus septic shock U/s with steatosis, no GB, no CBD dilatation 5/ abd pain may be due to gastritis, however if continued increased LFT's CBD stone/spasm must be considered Trend LFTs Nausea and vomiting thought secondary to ileus secondary to pneumonia, continue supportive care, and less so today having formed BMs (5) Pneumonia: Qualifiers: Pneumonia type: due to unspecified organism Laterality: unspecified laterality Lung location: unspecified part of lung Qualified Code(s): J18.9 - Pneumonia, unspecified organism Code(s): J18.9 - Pneumonia, unspecified organism Status: Acute Assessment and Plan: Assumed community-acquired. Not Responding quickly to ceftriaxone and azithromycin. Cultures have been negative. would broaden but get opion of pulmonolgy first Subjective Date/time seen: 11/28/19 13:53 Interval history: Date of visit 11/27. Admitted 11/22 that with pneumonia and sepsis with shock. Nauseated less today but still some bdk Right upper quadrants negative Denied chest pain. No shortness of breath at rest. No GI or complaints. No abnormal bleeding. Exam Narrative: Exam Narrative: Blood pressure 128/60 pulse 120 saturating 92% but on 5 L General: Moderately ill-appearing, obese HEENT: , no scleral icterus Neck: Short neck, large neck circumference, no jvd Respiratory: Coarse BS, NL effort Cardiovascular: Regular rate, regular rhythm Gastrointestinal: Obese, nontender, bowel soundsdecreased, slightly distended Skin: Non jaundice, no pallor, normal temperature, no rashes Extremities: Feet are cool but it good cap refill and well perfused, Neurological: Alert and oriented, speech is clear, no facial asymmetry Psychiatric: Appropriate mood and affect, pleasant and cooperative Objective Data Vital Signs Vital Signs: Vital Signs - 24 hr 11/27/19 14:00 11/27/19 16:50 11/27/19 17:30 Temperature 36.7 C 37.7 C H Pulse Rate 115 H 103 H Respiratory Rate 20 30 H Blood Pressure 125/56 L 107/66 Pulse Oximetry 92 91 95 11/27/19 20:48 11/27/19 21:46 11/28/19 02:00 Temperature 36.4 C L 36.7 C Pulse Rate 124 H 117 H Respiratory Rate 26 H 24 H Blood Pressure 149/96 H 102/54 L Pulse Oximetry 93 94 91 11/28/19 05:33 11/28/19 08:07 11/28/19 08:10 Temperature 36.3 C L 36.9 C Pulse Rate 123 H 101 H Respiratory Rate 22 H 32 H Blood Pressure 127/53 L Pulse Oximetry 99 93 11/28/19 10:44 Temperature 37.1 C Pulse Rate 125 H Respiratory Rate 30 H Blood Pressure 128/60 Pulse Oximetry 92 Intake/Output Intake/Output: Intake & Output 11/25/19 11/26/19 11/27/19 11/28/19 23:59 23:59 2
--- NOTE | 2019-11-28 15:10 | ECG_ITS ---
Measurements Intervals [place] Rate: 118 P: CO: 0 QRS: 45 QRSD: 83 T: 0 QT: 343 QTc: 481 Interpretive Statements ATRIAL FIBRILLATION WITH RAPID VENTRICULAR RESPONSE LOW QRS VOLTAGE IN PRECORDIAL LEADS BORDERLINE ST-T WAVE ABNORMALITY- DIFFUSE LEADS BASELINE ARTIFACT- I, III, AVL, AVF, V3-V6 ABNORMAL ECG Electronically Signed On 11-28-2019 15:52:58 CDT by Grzegorz Tate D.O.
[2019-11-28] MEDS: METOPROLOL TARTRATE 25 MG TABLET PO ×2 (16:25→21:31)
[2019-11-28 17:32] LABS: Glucose Point of Care 214 (65-105)
[2019-11-28] MEDS: ENOXAPARIN 100 MG/ML SYRINGE SUB-Q (21:31)
[2019-11-28 21:51] LABS: IFOB Positive Control Positive; Immunochemical Fecal Occult Bl Negative (N)
[2019-11-28 21:57] LABS: Glucose Point of Care 217 (65-105)
[2019-11-29] VITALS (32 sets, daily range): BP systolic 112–128; BP diastolic 35–61; PULSE 67–91; RESP 24–36; TEMP 36.3–37.9; O2SAT 75–99
[2019-11-29] MEDS: LEVOTHYROXINE SODIUM 88 MCG TABLET PO (06:40)
[2019-11-29] MEDS: METOPROLOL TARTRATE 25 MG TABLET PO ×3 (06:40→22:34)
[2019-11-29] MEDS: CENTRAL LINE FLUSH 20 ML IV PUSH (06:41)
[2019-11-29] MEDS: CENTRAL LINE FLUSH 10 ML IV PUSH ×3 (06:41→22:34)
[2019-11-29 06:59] LABS: Basophils Absolute Auto 0.1 K/mm3 (0.0-0.1); Basophils Percent Auto 0.2 % (0.2-1.2); Eosinophils Absolute Auto 0.4 K/mm3 (0-0.3); Eosinophils Percent Auto 1.9 % (0-4.4); Immature Granulocyte Absolute 1.01 K/mm3 (0.00-0.031); Immature Granulocyte Percent A 4.8 % (0-0.5); Lymphocytes Absolute Auto 2.65 K/mm3 (0.9-3.2); Lymphocytes Percent Auto 12.5 % (18.3-44.2); Mean Corpuscular HGB Conc 31.2 g/dl (32-36); Mean Corpuscular Hemoglobin 32.8 pg (26-34); Mean Platelet Volume 10.5 fl (7.4-10.4); Monocytes Absolute Auto 1.3 K/mm3 (0.1-0.6); Monocytes Percent Auto 6.3 % (2.6-8.5); Neutrophils Absolute Auto 15.8 K/mm3 (1.3-6.7); Neutrophils Percent Auto 74.3 % (45.5-73.1); Nucleated Red Blood Cells Absolute Auto 0.2 K/mm3 (0.0-0.012); Nucleated Red Blood Cells Perc 0.9 % (0.0-0.2); Platelet Count Result 208 k/mm3 (150-375); Red Cell Distribution Width 14.1 % (11.5-14.5); White Blood Count 21.3 K/mm3 (4.5-10.0)
[2019-11-29 07:02] LABS: Hematocrit 18.9 % (37.0-47.0); Hemoglobin 5.9 g/dL (12.0-15.0)
[2019-11-29 07:20] LABS: Platelet Estimate Adequate (Adequate)
[2019-11-29 07:28] LABS: Alanine Aminotransferase 35 U/L (4-35); Albumin Level 3.1 g/dL (3.5-5.1); Alkaline Phosphatase 100 U/L (38-126); Aspartate Amino Transferase 29 U/L (14-36); Bilirubin Direct 0.7 mg/dL (0-0.3); Bilirubin,Total 4.1 mg/dL (0.2-1.3); Blood Urea Nitrogen 54 mg/dL (7-17); Calcium 8.3 mg/dL (8.4-10.2); Carbon Dioxide 28 mmol/L (22-30); Chloride 100 mmol/L (98-107); Estimated CRCL calculation 64 ml/min; Estimated Glomerular Filt Rate 56; Glucose 253 mg/dL (65-105); Phosphorus 2.1 mg/dL (2.5-4.5); Potassium 4.6 mmol/L (3.4-5.0); Sodium 135 mmol/L (137-145)
[2019-11-29 07:48] LABS: CRP 33.3 mg/dL (<1.0)
[2019-11-29] MEDS: SIMETHICONE 125 MG CHEW TAB PO ×3 (08:33→17:56)
[2019-11-29] MEDS: ATORVASTATIN 20 MG TABLET PO (08:33)
[2019-11-29] MEDS: SERTRALINE HCL 50 MG TABLET PO (08:33)
[2019-11-29] MEDS: ASCORBIC ACID 500 MG TABLET PO (08:33)
[2019-11-29] MEDS: GABAPENTIN 300 MG CAPSULE PO ×3 (08:33→17:56)
[2019-11-29] MEDS: MAGNESIUM OXIDE 400 MG TABLET PO (08:33)
[2019-11-29] MEDS: POTASSIUM/PHOSPHORUS/SODIUM 1.5 GM PACKET 1 PACKET PO ×2 (08:34→17:56)
[2019-11-29] MEDS: PANTOPRAZOLE SODIUM IV 40 MG VIAL IV PUSH ×2 (08:35→22:34)
[2019-11-29] MEDS: INSULIN ASPART (*BKC) 100 UNITS/ML SUB-Q ×3 (08:41→17:55)
[2019-11-29 08:45] LABS: Glucose Point of Care 261 (65-105)
[2019-11-29] MEDS: ALBUTEROL SULFATE (*SP) AEROSOL 1 PUFF 6 PUFF INHALATION ×4 (08:59→20:04)
[2019-11-29] MEDS: FLUTICASONE PROP 110 MCG INHALER 12 GM (*SP) 1 PUFF INHALATION ×2 (09:00→20:07)
[2019-11-29] MEDS: SODIUM CHLORIDE 0.9% IV 250 ML 30 ML IV CONT (10:43)
[2019-11-29] MEDS: ACETAMINOPHEN 500 MG TABLET 1000 MG PO (10:49)
[2019-11-29 12:07] LABS: Glucose Point of Care 286 (65-105)
--- NOTE | 2019-11-29 13:26 | PCNFU ---
Nutrition Follow-Up Complete: Involuntary weight loss related to poor appetite prior to admission as evidenced by reported 2-13 pound weight loss. Goal: Patient will consume 75% of meals or greater. Limited progress towards goal. We will continue current goal. Pt current nutrition is 4 gm Na . Nutrition recommendation: Agree Last recorded weight is 116.6 kg. Bowel Motility:+BM reported / Labs Reviewed:Glu 187,Na 135,Hct 41.2,Hgb 13.9 Meds Noted:NS 250 ml at 30 ml/hr, Lipitor, VIt C,Novolog Additional Notes: Spoke with nursing today regarding nutrition follow up due to COVID 19 precautions. Patient had refused breakfast clear liquids tray, some confusion per nursing. Diet order changed to 4 gm Na diet. Diet supplements remain with Glucerna BID providing an additional 220 kcals and 9 gms protein. PO intake encouraged. Monitoring: Follow up every 5 days.
[2019-11-29 15:10] LABS: Legionella pneumophila Ag Ur Not Detected (Not Detected)
--- NOTE | 2019-11-29 15:40 | PM.IMPN ---
Progress Note: A&P Assessment and Plan (1) Septic shock: Code(s): A41.9 - Sepsis, unspecified organism; R65.21 - Severe sepsis with septic shock Status: Acute Assessment and Plan: Due to pneumonia Weaned off pressors (vasopressin) 5/3 Continue ceftriaxone and doxycycline day 5 Blood cultures and urine and stool cultures all negative COVID-19 testing NEGATIVE (2) COPD (chronic obstructive pulmonary disease): Qualifiers: COPD type: unspecified COPD Qualified Code(s): J44.9 - Chronic obstructive pulmonary disease, unspecified Code(s): J44.9 - Chronic obstructive pulmonary disease, unspecified Status: Acute Assessment and Plan: Without evidence of acute exacerbation. Continue home regimen Continue supplemental oxygen (3) Suspected COVID-19 virus infection: Code(s): R68.89 - Other general symptoms and signs Status: Acute Assessment and Plan: COVID-19 testing NEGATIVE (4) Transaminitis: Code(s): R74.0 - Nonspecific elevation of levels of transaminase and lactic acid dehydrogenase [LDH] Status: Acute Assessment and Plan: Acute hepatitis panel negative. Likely due to his hepatic steatosis plus septic shock U/s with steatosis, no GB, no CBD dilatation / abd pain may be due to gastritis, however if continued increased LFT's CBD stone/spasm must be considered Nausea and vomiting thought secondary to ileus secondary to pneumonia which has resolved, continue supportive care having formed BMs which were occult blood negative Bilirubin elevated and will obtain CT of the abdomen, consider hemolysis to with dropping hemoglobin negative stool (5) Pneumonia: Qualifiers: Pneumonia type: due to unspecified organism Laterality: unspecified laterality Lung location: unspecified part of lung Qualified Code(s): J18.9 - Pneumonia, unspecified organism Code(s): J18.9 - Pneumonia, unspecified organism Status: Acute Assessment and Plan: Assumed community-acquired. Not Responding quickly to ceftriaxone and azithromycin. Cultures have been negative. get opinion of pulmonolgy about broadening school for coverage (6) Anemia: Code(s): D64.9 - Anemia, unspecified Status: Acute Assessment and Plan: Hemoglobin dropped to 5.9 overnight from 8.1. No reports of melena and stool occult blood is negative. Will check CT abdomen for retroperitoneal bleed Check for stick count for possibility of hemolysis along with haptoglobin (7) Atrial fibrillation: Code(s): I48.91 - Unspecified atrial fibrillation Status: Acute Assessment and Plan: Episode 5/6. Converted spontaneously back to sinus rhythm and now on low-dose beta-franca off anticoagulation with falling hemoglobin Subjective Date/time seen: 11/29/19 15:40 Interval history: Date of visit 11/28. Admitted 11/22 that with pneumonia and sepsis with shock. Nauseated less today feels better than yesterday but still some short of breath Episode of AFib 5/6 with converted back to sinus rhythm. Anticoagulated which was discontinued this a.m. when hemoglobin dropped but stool is guaiac negative and no reports of melena or diarrhea or GI blood loss Exam Narrative: Exam Narrative: Blood pressure 116/90 pulse 70 saturating 92% but on 5 L temp 37.9? General: Moderately ill-appearing, obese HEENT: , scleral icterus now Neck: Short neck, large neck circumference, no jvd Respiratory: Coarse BS, crackles anteriorly on the right Cardiovascular: Regular rate, regular rhythm Gastrointestinal: Obese, nontender, bowel sounds normal today and less, distended Skin: no pallor, normal temperature, erythema anterior chest near neckl neck Extremities: Feet are cool but it good cap refill and well perfused, Neurological: Alert and oriented, speech is clear, no facial asymmetry Psychiatric: Appropriate mood and affect, pleasant and
--- NOTE | 2019-11-29 16:46 | PC.NURSE ---
Attempted to call patients personnel research psychologist to obtain consent for CT. Patient not alert and oriented at this time.
[2019-11-29 17:53] LABS: Glucose Point of Care 240 (65-105)
[2019-11-29 18:07] LABS: Hematocrit 27.2 % (37.0-47.0); Hemoglobin 8.7 g/dL (12.0-15.0); Mean Corpuscular Volume 96.8 fl (80-100); Mean Platelet Volume 10.6 fl (7.4-10.4); Platelet Count Result 200 k/mm3 (150-375); Red Blood Count 2.81 M/mm3 (4.2-5.4); Red Cell Distribution Width 17.4 % (11.5-14.5); White Blood Count 18.2 K/mm3 (4.5-10.0)
--- NOTE | 2019-11-29 19:22 | PC.NURSE ---
Patients second unit of blood was started while meditech was down. Verified blood with two nurses. Pavithra Alanis and Torri Nguyễn verified.
[2019-11-29 21:03] LABS: Alveolar/Arterial O2 Gradient 244.3 mmHg; Base Excess ABG -2.2 mEq/l (+/-2.0); Device CPAP; Fractional Inspired Oxygen 50 %; HCO3 ABG 23.5 mEq/l (22.0-26.0); Modified Allen's Test Pass; Oxygen Content ABG 11.9 %vol (16.0-22.0); Oxygen Saturation ABG 90.7 % (95.0-100.0); Oxyhemoglobin 87.5 % THb (90.0-100.0); PCO2 ABG 44.2 mmHg (35.0-45.0); PO2 ABG 62.5 mmHg (80.0-100.0); PO2 FiO2 Ratio Arterial Blood 1.25 %; Site Drawn LEFT RADIAL; Total Hemoglobin 9.6 g/dL (12.0-18.0); pH ABG 7.343 (7.350-7.450)
[2019-11-29 21:04] LABS: CPAP 12 cmH2O
[2019-11-29] MEDS: SODIUM CHLORIDE 0.9% IV 1,000 ML 75 ML IV CONT (22:48)
[2019-11-29 22:58] LABS: Glucose Point of Care 263 (65-105)
--- NOTE | 2019-11-29 23:55 | PC.NURSE ---
Patient was transferred to IMU via bed. Family was called and a message was left to call back for an update.
[2019-11-30] VITALS (23 sets, daily range): BP systolic 109–140; BP diastolic 43–71; PULSE 65–117; RESP 16–34; TEMP 36.6–37.4; O2SAT 96–100
--- NOTE | 2019-11-30 00:18 | ADMIMU ---
This patient, Court Ybarra, was transferred from room 303 to IMU Room 231-01. Patient/family oriented to hospital policies and general routines including ID bracelet, bed and alarms, visiting hours, pain management, procedures, bathroom and other care routines, personal items, smoking policy, room service/diet, and visiting hours. Valuables list has been completed. Information on how to activate the Rapid Response Team has been discussed. Patient/Family are encouraged to report perceived risks to care and to ask questions if they do not understand what they are told or what they should do.
[2019-11-30 04:36] LABS: Immature Reticulocyte Fraction 29.9 % (3.0-15.9); Reticulocyte Hemoglobin Conten 31.1 pg (28.2-35.7); Reticulocyte Percent 2.92 % (0.7-4.3); Reticulocytes Absolute 0.08 B/L (32.2-175.7)
[2019-11-30 04:47] LABS: Alanine Aminotransferase 30 U/L (4-35); Albumin Level 3.2 g/dL (3.5-5.1); Alkaline Phosphatase 101 U/L (38-126); Aspartate Amino Transferase 36 U/L (14-36); Bilirubin Direct 0.6 mg/dL (0-0.3); Bilirubin,Total 3.7 mg/dL (0.2-1.3); Blood Urea Nitrogen 63 mg/dL (7-17); Calcium 8.3 mg/dL (8.4-10.2); Carbon Dioxide 27 mmol/L (22-30); Chloride 104 mmol/L (98-107); Estimated CRCL calculation 62 ml/min; Estimated Glomerular Filt Rate 56; Glucose 279 mg/dL (65-105); Lactate Dehydrogenase 1580 U/L (313-618); Potassium 4.5 mmol/L (3.4-5.0); Sodium 137 mmol/L (137-145)
[2019-11-30] MEDS: CENTRAL LINE FLUSH 10 ML IV PUSH ×3 (06:15→20:36)
[2019-11-30] MEDS: METOPROLOL TARTRATE 25 MG TABLET PO ×3 (06:15→20:33)
[2019-11-30] MEDS: LEVOTHYROXINE SODIUM 88 MCG TABLET PO (06:15)
[2019-11-30 07:41] LABS: Glucose Point of Care 307 (65-105)
[2019-11-30] MEDS: ATORVASTATIN 20 MG TABLET PO (09:20)
[2019-11-30] MEDS: POTASSIUM/PHOSPHORUS/SODIUM 1.5 GM PACKET 1 PACKET PO ×2 (09:20→17:07)
[2019-11-30] MEDS: PANTOPRAZOLE SODIUM IV 40 MG VIAL IV PUSH ×2 (09:20→20:31)
[2019-11-30] MEDS: GABAPENTIN 300 MG CAPSULE PO ×3 (09:20→17:07)
[2019-11-30] MEDS: ASCORBIC ACID 500 MG TABLET PO (09:20)
[2019-11-30] MEDS: SIMETHICONE 125 MG CHEW TAB PO ×3 (09:20→17:07)
[2019-11-30] MEDS: MAGNESIUM OXIDE 400 MG TABLET PO (09:20)
[2019-11-30] MEDS: SERTRALINE HCL 50 MG TABLET PO (09:20)
[2019-11-30 09:21] LABS: Basophils Absolute Auto 0.1 K/mm3 (0.0-0.1); Basophils Percent Auto 0.5 % (0.2-1.2); Eosinophils Absolute Auto 0.3 K/mm3 (0-0.3); Eosinophils Percent Auto 1.9 % (0-4.4); Hematocrit 25.6 % (37.0-47.0); Immature Granulocyte Percent A 4.9 % (0-0.5); Lymphocytes Absolute Auto 1.87 K/mm3 (0.9-3.2); Lymphocytes Percent Auto 10.2 % (18.3-44.2); Mean Corpuscular HGB Conc 31.3 g/dl (32-36); Mean Corpuscular Hemoglobin 30.8 pg (26-34); Mean Corpuscular Volume 98.5 fl (80-100); Mean Platelet Volume 10.5 fl (7.4-10.4); Monocytes Percent Auto 5.5 % (2.6-8.5); Nucleated Red Blood Cells Absolute Auto 0.2 K/mm3 (0.0-0.012); Platelet Count Result 209 k/mm3 (150-375); Red Cell Distribution Width 18.8 % (11.5-14.5); White Blood Count 18.3 K/mm3 (4.5-10.0)
[2019-11-30] MEDS: INSULIN ASPART (*BKC) 100 UNITS/ML SUB-Q ×3 (09:25→17:07)
[2019-11-30] MEDS: FLUTICASONE PROP 110 MCG INHALER 12 GM (*SP) 1 PUFF INHALATION ×2 (09:32→19:58)
[2019-11-30] MEDS: ALBUTEROL SULFATE (*SP) AEROSOL 1 PUFF 6 PUFF INHALATION ×4 (09:32→19:56)
--- NOTE | 2019-11-30 10:00 | PCPTNOTE ---
Spoke with patient's RN, will attempt to re-evaluate patient at a later time given patient's current medical status. Will continue PT plan of care as deemed appropriate. Xiomara Cohen, PT, DPT
--- NOTE | 2019-11-30 10:07 | PCOTNOTE ---
Hold OT today per nursing due to patient medical status. Will continue therapy services when medically appropriate.
--- NOTE | 2019-11-30 11:13 | PC.NURSE ---
This patient, Court Ybarra, was transferred to ICU-6 on 11/30/19 at 0830. Personal belongings sent with patient. Belongings list checked. Report given to DAVID Adorno at bedside. Appropriate documentation sent with patient. Patient was sent to ICU after speaking with Dr. Berrios regarding her CT test results from last evening. I called Dr. Berrios to discuss the results that stated COVID should be included as a possible diagnosis even though patient has tested negative. Dr. Berrios stated he had seen the results this morning and was coming over to speak with me and see the patient and that we needed to consider moving her to ICU for COVID rule out and retesting. Patient was taken off of BiPAP and placed on 15L non-rebreather mask and transferred to ICU 6 for isolation and retesting.
[2019-11-30 12:12] LABS: Glucose Point of Care 265 (65-105)
[2019-11-30] MEDS: SODIUM CHLORIDE 0.9% IV 1,000 ML 75 ML IV CONT (13:15)
--- NOTE | 2019-11-30 13:21 | PM.IMPN ---
Progress Note: A&P Assessment and Plan (1) Septic shock: Code(s): A41.9 - Sepsis, unspecified organism; R65.21 - Severe sepsis with septic shock Status: Acute Assessment and Plan: Due to pneumonia Weaned off pressors (vasopressin) 5/3 Continue ceftriaxone and doxycycline day 6 Blood cultures and urine and stool cultures all negative COVID-19 testing NEGATIVE x2 but retested today with worsening chest xray, increase 02 requirements, and rising markers (2) COPD (chronic obstructive pulmonary disease): Qualifiers: COPD type: unspecified COPD Qualified Code(s): J44.9 - Chronic obstructive pulmonary disease, unspecified Code(s): J44.9 - Chronic obstructive pulmonary disease, unspecified Status: Acute Assessment and Plan: Without evidence of acute exacerbation. Continue home regimen Continue supplemental oxygen (3) Suspected COVID-19 virus infection: Code(s): R68.89 - Other general symptoms and signs Status: Acute Assessment and Plan: COVID-19 testing NEGATIVE x2 but still suspect has covid. repeating test today and Dr Harrington to see (4) Transaminitis: Code(s): R74.0 - Nonspecific elevation of levels of transaminase and lactic acid dehydrogenase [LDH] Status: Acute Assessment and Plan: Acute hepatitis panel negative. Likely due to his hepatic steatosis plus septic shock U/s with steatosis, no GB, no CBD dilatation 5/4 abd pain may be due to gastritis, and has resolved Nausea and vomiting thought secondary to ileus secondary to pneumonia which has resolved, continue supportive care having formed BMs which were occult blood negative Bilirubin elevated and CT of the abdomen benign, considered hemolysis too with dropping hemoglobin negative stoolbut low retic. (5) Pneumonia: Qualifiers: Pneumonia type: due to unspecified organism Laterality: unspecified laterality Lung location: unspecified part of lung Qualified Code(s): J18.9 - Pneumonia, unspecified organism Code(s): J18.9 - Pneumonia, unspecified organism Status: Acute Assessment and Plan: Assumed community-acquired. Not Responding to ceftriaxone and azithromycin. Cultures have been negative. pulmonolgy has seen and ángela have seen by marine specialist too. (6) Anemia: Code(s): D64.9 - Anemia, unspecified Status: Acute Assessment and Plan: Hemoglobin dropped to 5.9 overnight from 8.1. No reports of melena and stool occult blood is negative. Will check CT abdomen for retroperitoneal bleed Check for stick count for possibility of hemolysis along with haptoglobin (7) Atrial fibrillation: Code(s): I48.91 - Unspecified atrial fibrillation Status: Acute Assessment and Plan: Episode 5/6. Converted spontaneously back to sinus rhythm and now on low-dose beta-franca off anticoagulation with falling hemoglobin (8) Acute and chronic respiratory failure: Code(s): J96.20 - Acute and chronic respiratory failure, unspecified whether with hypoxia or hypercapnia Status: Acute Assessment and Plan: with hypoxia thought secondary to pna with normal echo . continue supportive care and may have to be mechanically ventilated if does not improve soon Subjective Date/time seen: 11/30/19 13:21 Interval history: Date of visit 11/29. Admitted 11/22 that with pneumonia and sepsis with shock. More short of breath last pm with increasing 02 requirements. Now on high flow Episode of AFib 11/27 with converted back to sinus rhythm. Anticoagulated which was discontinued am 11/28. when hemoglobin dropped but stool is guaiac negative and no reports of melena or diarrhea or GI blood loss and ct no retroperitoneal bleed Exam Narrative: Exam Narrative: Blood pressure 124/52 pulse 70 saturating 100% but on 60% high flow and she is tachypneic R 28/ min temp 37.9? General: Moderately ill-appearing, obese HEENT:
[2019-11-30] MEDS: FUROSEMIDE INJ 40 MG/4 ML VIAL IV PUSH (13:47)
--- NOTE | 2019-11-30 13:59 | WPDINTPN ---
Progress Note: A&P Assessment and Plan (1) Acute and chronic respiratory failure: Code(s): J96.20 - Acute and chronic respiratory failure, unspecified whether with hypoxia or hypercapnia Status: Acute Assessment and Plan: patient with acute on chronic respiratory failure. Worsening shortness of breath with increasing FiO2 requirements on 11/30/2019. Patient does have a history of COPD, chronic respiratory failure with 2 L home O2. Patient also has diastolic dysfunction and paroxysmal AFib. - Chest x-ray and ABGs reviewed, will wean FiO2 as tolerated - will give a dose of Lasix 40 mg IV x1 now and may repeat a dose later this evening. - Continue patient on ceftriaxone and doxycycline a (2) Suspected COVID-19 virus infection: Code(s): R68.89 - Other general symptoms and signs Status: Acute Assessment and Plan: patient was ruled out for COVID-19 on 11/23/2019 and 11/25/2019. - Patient is getting repeat SARS-CoV-2 PCR which was done on 11/29/2028 pending. - place patient on droplet, airborne and contact precautions - obtained inflammatory markers (3) Pneumonia: Qualifiers: Pneumonia type: due to unspecified organism Laterality: unspecified laterality Lung location: unspecified part of lung Qualified Code(s): J18.9 - Pneumonia, unspecified organism Code(s): J18.9 - Pneumonia, unspecified organism Status: Acute Assessment and Plan: continue antibiotics as above. - CTA lungs 11/24/2019 showed patchy bilateral airspace disease consistent with multifocal pneumonia. no large central pulmonary embolism mildly thickened esophagus - patient on 2 L oxygen via nasal cannula which she uses at home (4) Transaminitis: Code(s): R74.0 - Nonspecific elevation of levels of transaminase and lactic acid dehydrogenase [LDH] Status: Acute Assessment and Plan: RESOLVED: elevated LFTs likely related to decreased perfusion - hepatitis panel is negative - LFTS HAVE NORMALIZED - right upper quadrant ultrasound 11/26/2019 hepatic steatosis, status post cholecystectomy (5) Type 2 diabetes mellitus: Qualifiers: Diabetes mellitus complication detail: with polyneuropathy Diabetes mellitus complication status: with neurologic complications Diabetes mellitus termite control servicer insulin use: without termite control servicer use Qualified Code(s): E11.42 - Type 2 diabetes mellitus with diabetic polyneuropathy Code(s): E11.9 - Type 2 diabetes mellitus without complications Status: Acute Assessment and Plan: sliding scale insulin Accu-Cheks - will increase detemir (6) Hypertension: Qualifiers: Hypertension type: unspecified Qualified Code(s): I10 - Essential (primary) hypertension Code(s): I10 - Essential (primary) hypertension Status: Acute Assessment and Plan: blood pressures have been stable, will hold all antihypertensive (7) COPD (chronic obstructive pulmonary disease): Qualifiers: COPD type: unspecified COPD Qualified Code(s): J44.9 - Chronic obstructive pulmonary disease, unspecified Code(s): J44.9 - Chronic obstructive pulmonary disease, unspecified Status: Acute Assessment and Plan: history of COPD, on albuterol, Atrovent and fluticasone inhalers (8) DVT prophylaxis: Code(s): Z29.9 - Encounter for prophylactic measures, unspecified Status: Acute Assessment and Plan: Lovenox SQ prophylactic dose (9) Dietary counseling and surveillance: Code(s): Z71.3 - Dietary counseling and surveillance Status: Acute Assessment and Plan: NPO for now Additional Plan discussed with patient in details, updated her with her condition and plan of care. She is aware that she is going to be retested for the 3rd time for a COVID-19. Discussed with her regarding possibly for intubation if her respiratory status worsens, he is agreeable.
[2019-11-30 14:03] LABS: Alveolar/Arterial O2 Gradient 247.5 mmHg; Base Excess ABG -0.3 mEq/l (+/-2.0); Fractional Inspired Oxygen 55 %; HCO3 ABG 25.7 mEq/l (22.0-26.0); Oxygen Content ABG 10.9 %vol (16.0-22.0); Oxygen Saturation ABG 96.3 % (95.0-100.0); PCO2 ABG 49.2 mmHg (35.0-45.0); PO2 ABG 89.9 mmHg (80.0-100.0); PO2 FiO2 Ratio Arterial Blood 1.63 %; Total Hemoglobin 8.1 g/dL (12.0-18.0); pH ABG 7.336 (7.350-7.450)
[2019-11-30 14:04] LABS: Site Drawn RIGHT RADIAL
[2019-11-30 14:05] LABS: Device HIGH FLOW THERAPY; Modified Allen's Test Pass
[2019-11-30 14:25] LABS: Lactate Dehydrogenase 1286 U/L (313-618)
[2019-11-30 14:32] LABS: D Dimer 3.81 ug/mL (<0.48)
[2019-11-30 14:35] LABS: CRP 25.8 mg/dL (<1.0)
[2019-11-30 15:05] LABS: Add Urine Microscopic? YES; Appearance Urine Clear (Clear); Bacteria Urine Trace /hpf; Bilirubin Urine Negative (Negative); Blood Urine Negative (Negative); Color Urine Straw (Yellow); Glucose Urine UA Negative (Negative); Ketones Urine Negative (Negative); Leukocyte Esterase Ur Negative LEU/UL (NEGATIVE); Mucus Urine Rare /lpf; Nitrate Urine Negative (Negative); Protein Urine Negative (Negative); RBC Urine 0-2 /hpf (0-2); Specific Grav Ur 1.008 (1.001-1.035); Squamous Epithelial Cell Urine Occasional /hpf (Few); Urobilinogen Urine Negative mg/dL (<2.0); WBC Urine 0-3 /hpf (0-3)
[2019-11-30 16:20] LABS: SARS-CoV-2 RNA PCR Negative
[2019-11-30 16:31] LABS: Ferritin > 2000.00 ng/mL (11.1-264)
[2019-11-30 16:36] LABS: Glucose Point of Care 254 (65-105)
--- NOTE | 2019-11-30 17:18 | PC.NURSE ---
At 1603 pt returned to a[facility] on telemetry, rate controlled in90's to 11, discussed with charge nurse to notified of this and stated not to call doctor unless pt goes into an rvr
[2019-11-30] MEDS: ENOXAPARIN 40 MG/0.4 ML SYRINGE SUB-Q (20:33)
[2019-11-30 20:59] LABS: Glucose Point of Care 238 (65-105)
[2019-12-01] VITALS (31 sets, daily range): BP systolic 85–133; BP diastolic 24–96; PULSE 57–124; RESP 18–96; TEMP 35.8–37.7; O2SAT 21–100
[2019-12-01 04:14] LABS: Alveolar/Arterial O2 Gradient 256.5 mmHg; Base Excess ABG 1.9 mEq/l (+/-2.0); Carboxyhemoglobin 0.8 % THb (0-2.0); Fractional Inspired Oxygen 55 %; HCO3 ABG 27.7 mEq/l (22.0-26.0); Methemoglobin ABG 0.2 %THb (0-1.5); Modified Allen's Test Pass; Oxygen Content ABG 13.8 %vol (16.0-22.0); Oxygen Saturation ABG 95.6 % (95.0-100.0); PCO2 ABG 48.9 mmHg (35.0-45.0); PO2 ABG 81.3 mmHg (80.0-100.0); PO2 FiO2 Ratio Arterial Blood 1.48 %; Site Drawn LEFT RADIAL; Total Hemoglobin 10.4 g/dL (12.0-18.0); pH ABG 7.371 (7.350-7.450)
[2019-12-01 04:15] LABS: Device HIGH FLOW THERAPY
[2019-12-01 04:29] LABS: Basophils Absolute Auto 0.1 K/mm3 (0.0-0.1); Basophils Percent Auto 0.3 % (0.2-1.2); Eosinophils Absolute Auto 0.3 K/mm3 (0-0.3); Hematocrit 21.2 % (37.0-47.0); Immature Granulocyte Absolute 0.76 K/mm3 (0.00-0.031); Immature Granulocyte Percent A 4.8 % (0-0.5); Lymphocytes Absolute Auto 1.71 K/mm3 (0.9-3.2); Lymphocytes Percent Auto 10.8 % (18.3-44.2); Mean Corpuscular HGB Conc 32.1 g/dl (32-36); Mean Corpuscular Hemoglobin 30.9 pg (26-34); Mean Corpuscular Volume 96.4 fl (80-100); Mean Platelet Volume 9.8 fl (7.4-10.4); Monocytes Absolute Auto 0.7 K/mm3 (0.1-0.6); Monocytes Percent Auto 4.6 % (2.6-8.5); Neutrophils Absolute Auto 12.3 K/mm3 (1.3-6.7); Neutrophils Percent Auto 77.5 % (45.5-73.1); Nucleated Red Blood Cells Absolute Auto 0.1 K/mm3 (0.0-0.012); Nucleated Red Blood Cells Perc 0.8 % (0.0-0.2); Platelet Count Result 177 k/mm3 (150-375); White Blood Count 15.8 K/mm3 (4.5-10.0)
[2019-12-01 04:33] LABS: Hemoglobin 6.8 g/dL (12.0-15.0)
[2019-12-01 04:43] LABS: D Dimer 2.98 ug/mL (<0.48)
[2019-12-01 04:56] LABS: Alanine Aminotransferase 22 U/L (4-35); Albumin Level 2.7 g/dL (3.5-5.1); Alkaline Phosphatase 82 U/L (38-126); Aspartate Amino Transferase 26 U/L (14-36); Bilirubin,Total 2.1 mg/dL (0.2-1.3); Blood Urea Nitrogen 52 mg/dL (7-17); Carbon Dioxide 30 mmol/L (22-30); Chloride 104 mmol/L (98-107); Estimated CRCL calculation 62 ml/min; Estimated Glomerular Filt Rate 56; Glucose 268 mg/dL (65-105); Lactate Dehydrogenase 994 U/L (313-618); Phosphorus 2.4 mg/dL (2.5-4.5); Sodium 138 mmol/L (137-145)
[2019-12-01 04:59] LABS: CRP 23.3 mg/dL (<1.0)
[2019-12-01] MEDS: LEVOTHYROXINE SODIUM 88 MCG TABLET PO (05:08)
[2019-12-01] MEDS: CENTRAL LINE FLUSH 10 ML IV PUSH ×3 (05:08→22:54)
[2019-12-01] MEDS: METOPROLOL TARTRATE 25 MG TABLET PO ×3 (05:09→19:11)
[2019-12-01] MEDS: SODIUM CHLORIDE 0.9% IV 250 ML 30 ML IV CONT (06:29)
[2019-12-01] MEDS: ALBUTEROL SULFATE (*SP) AEROSOL 1 PUFF 6 PUFF INHALATION ×4 (09:09→19:53)
[2019-12-01] MEDS: FLUTICASONE PROP 110 MCG INHALER 12 GM (*SP) 1 PUFF INHALATION ×2 (09:11→19:53)
[2019-12-01] MEDS: INSULIN ASPART (*BKC) 100 UNITS/ML SUB-Q ×2 (10:42→17:42)
[2019-12-01] MEDS: FUROSEMIDE INJ 40 MG/4 ML VIAL IV PUSH ×2 (10:45→20:53)
[2019-12-01] MEDS: PANTOPRAZOLE SODIUM IV 40 MG VIAL IV PUSH ×2 (10:47→20:54)
[2019-12-01] MEDS: ASCORBIC ACID 500 MG TABLET PO (10:47)
[2019-12-01] MEDS: ATORVASTATIN 20 MG TABLET PO (10:47)
[2019-12-01] MEDS: MAGNESIUM OXIDE 400 MG TABLET PO (10:47)
[2019-12-01] MEDS: POTASSIUM/PHOSPHORUS/SODIUM 1.5 GM PACKET 1 PACKET PO ×2 (10:48→17:44)
[2019-12-01] MEDS: SERTRALINE HCL 50 MG TABLET PO (10:48)
[2019-12-01] MEDS: GABAPENTIN 300 MG CAPSULE PO ×3 (10:48→17:43)
[2019-12-01] MEDS: SIMETHICONE 125 MG CHEW TAB PO ×3 (10:49→17:43)
[2019-12-01 11:12] LABS: Glucose Point of Care 275 (65-105)
[2019-12-01 11:38] LABS: Hematocrit 24.4 % (37.0-47.0); Hemoglobin 7.9 g/dL (12.0-15.0)
--- NOTE | 2019-12-01 13:06 | WPDINTPN ---
Progress Note: A&P Assessment and Plan (1) Acute and chronic respiratory failure: Code(s): J96.20 - Acute and chronic respiratory failure, unspecified whether with hypoxia or hypercapnia Status: Acute Assessment and Plan: patient with acute on chronic respiratory failure. Worsening shortness of breath with increasing FiO2 requirements on 11/30/2019. Patient does have a history of COPD, chronic respiratory failure with 2 L home O2. Patient also has diastolic dysfunction and paroxysmal AFib. - Chest x-ray and ABGs reviewed, will wean FiO2 as tolerated. She is currently on 55 L and 50% FiO2. - will give a dose of Lasix 40 mg IV x1 now and may repeat a dose later this evening. - Continue patient on ceftriaxone and doxycycline. If her 3rd test for COVID is negative then will use BiPAP overnight. She does have history of obstructive sleep apnea and has been using CPAP/ BiPAP overnight. (2) Suspected COVID-19 virus infection: Code(s): R68.89 - Other general symptoms and signs Status: Acute Assessment and Plan: patient was ruled out for COVID-19 on 11/23/2019 and 11/25/2019. - Repeat COVID testing from yesterday still pending. - place patient on droplet, airborne and contact precautions - obtained inflammatory markers (3) Pneumonia: Qualifiers: Laterality: unspecified laterality Lung location: unspecified part of lung Pneumonia type: due to unspecified organism Qualified Code(s): J18.9 - Pneumonia, unspecified organism Code(s): J18.9 - Pneumonia, unspecified organism Status: Acute Assessment and Plan: continue antibiotics as above. - CTA lungs 11/24/2019 showed patchy bilateral airspace disease consistent with multifocal pneumonia. no large central pulmonary embolism mildly thickened esophagus - She is currently on high-flow oxygen with 55 L in 50% FiO2. At baseline she uses 2 L of oxygen through nasal cannula. (4) Transaminitis: Code(s): R74.0 - Nonspecific elevation of levels of transaminase and lactic acid dehydrogenase [LDH] Status: Acute Assessment and Plan: RESOLVED: elevated LFTs likely related to decreased perfusion - hepatitis panel is negative - LFTS HAVE NORMALIZED - right upper quadrant ultrasound 11/26/2019 hepatic steatosis, status post cholecystectomy (5) Type 2 diabetes mellitus: Qualifiers: Diabetes mellitus complication detail: with polyneuropathy Diabetes mellitus complication status: with neurologic complications Diabetes mellitus adjunct faculty for medical terminology insulin use: without adjunct faculty for medical terminology use Qualified Code(s): E11.42 - Type 2 diabetes mellitus with diabetic polyneuropathy Code(s): E11.9 - Type 2 diabetes mellitus without complications Status: Acute Assessment and Plan: sliding scale insulin Accu-Cheks - Continue detemir. (6) Hypertension: Qualifiers: Hypertension type: unspecified Qualified Code(s): I10 - Essential (primary) hypertension Code(s): I10 - Essential (primary) hypertension Status: Acute Assessment and Plan: blood pressures have been stable, will hold all antihypertensive (7) COPD (chronic obstructive pulmonary disease): Qualifiers: COPD type: unspecified COPD Qualified Code(s): J44.9 - Chronic obstructive pulmonary disease, unspecified Code(s): J44.9 - Chronic obstructive pulmonary disease, unspecified Status: Acute Assessment and Plan: history of COPD, on albuterol, Atrovent and fluticasone inhalers (8) DVT prophylaxis: Code(s): Z29.9 - Encounter for prophylactic measures, unspecified Status: Acute Assessment and Plan: Lovenox SQ prophylactic dose (9) Dietary counseling and surveillance: Code(s): Z71.3 - Dietary counseling and surveillance Status: Acute Assessment and Plan: NPO for now Additional Plan discussed with patient in details, u
--- NOTE | 2019-12-01 15:15 | PM.IMPN ---
Progress Note: A&P Assessment and Plan (1) Septic shock: Code(s): A41.9 - Sepsis, unspecified organism; R65.21 - Severe sepsis with septic shock Status: Acute Assessment and Plan: Due to pneumonia Weaned off pressors (vasopressin) 5/3 Continue ceftriaxone and doxycycline day 7 Blood cultures and urine and stool cultures all negative COVID-19 testing NEGATIVE x2 will rescreen Group b strep is positive (2) COPD (chronic obstructive pulmonary disease): Qualifiers: COPD type: unspecified COPD Qualified Code(s): J44.9 - Chronic obstructive pulmonary disease, unspecified Code(s): J44.9 - Chronic obstructive pulmonary disease, unspecified Status: Acute Assessment and Plan: Without evidence of acute exacerbation. Continue home regimen Continue supplemental oxygen High flow oxygen (3) Suspected COVID-19 virus infection: Code(s): R68.89 - Other general symptoms and signs Status: Acute Assessment and Plan: COVID-19 testing NEGATIVE x2, pt to have rpt screen (4) Transaminitis: Code(s): R74.0 - Nonspecific elevation of levels of transaminase and lactic acid dehydrogenase [LDH] Status: Acute Assessment and Plan: Acute hepatitis panel negative. Likely due to his hepatic steatosis plus septic shock U/s with steatosis, no GB, no CBD dilatation 5/ abd pain may be due to gastritis, and has resolved Nausea and vomiting thought secondary to ileus secondary to pneumonia which has resolved, continue supportive care having formed BMs which were occult blood negative Bilirubin elevated and CT of the abdomen benign, as per previous note (5) Pneumonia: Qualifiers: Pneumonia type: due to unspecified organism Laterality: unspecified laterality Lung location: unspecified part of lung Qualified Code(s): J18.9 - Pneumonia, unspecified organism Code(s): J18.9 - Pneumonia, unspecified organism Status: Acute Assessment and Plan: Assumed community-acquired. Not Responding to ceftriaxone and azithromycin. Cultures have been negative. pulmonolgy has seen and ángela have seen by cone operator too. changed to iv doxycycline and iv ceftriazone (6) Anemia: Code(s): D64.9 - Anemia, unspecified Status: Acute Assessment and Plan: Hemoglobin dropped to 5.9 overnight from 8.1. No reports of melena and stool occult blood is negative. ct abdomen checked, pt had blood transfusion (7) Atrial fibrillation: Code(s): I48.91 - Unspecified atrial fibrillation Status: Acute Assessment and Plan: Episode 5/6. Converted spontaneously back to sinus rhythm and now on low-dose beta-franca off anticoagulation due to hb drop (8) Acute and chronic respiratory failure: Code(s): J96.20 - Acute and chronic respiratory failure, unspecified whether with hypoxia or hypercapnia Status: Acute Assessment and Plan: with hypoxia thought secondary to pna with normal echo . continue supportive care and high flow oxygen Subjective Date/time seen: 12/01/19 15:15 Interval history: Discuused case with icu attending. pt Admitted 11/22 that with pneumonia and sepsis with shock. Requiring oxygen on high flow Episode of AFib 11/27 with converted back to sinus rhythm. Anticoagulated which was discontinued am 11/28. when hemoglobin dropped but stool is guaiac negative pt received blood awaiting rescreen of covid, much the same as yesterday Review of Systems Review of Systems: All systems reviewed & are unremarkable except as noted in HPI and below Exam Narrative: Exam Narrative: Temp Pulse Resp BP Pulse Ox 37.1 C 118 H 24 H 114/58 L 95 12/01/19 12:00 12/01/19 14:00 12/01/19 14:00 12/01/19 14:00 12/01/19 14:00 Pt seen not examined see icu a
[2019-12-01 17:55] LABS: Glucose Point of Care 282 (65-105)
--- NOTE | 2019-12-01 18:24 | PM.PNPUL ---
Progress Note: A&P Assessment and Plan (1) Pneumonia: Qualifiers: Laterality: unspecified laterality Lung location: unspecified part of lung Pneumonia type: due to unspecified organism Qualified Code(s): J18.9 - Pneumonia, unspecified organism Code(s): J18.9 - Pneumonia, unspecified organism Status: Acute Assessment and Plan: slow improvement in oxygenation, shortness of breath, no secretions; CXR still shows persistent infiltrates; WBC is lower 15.8 no organism isolated; continue ceftriaxone and doxycycline (2) Acute and chronic respiratory failure: Code(s): J96.20 - Acute and chronic respiratory failure, unspecified whether with hypoxia or hypercapnia Status: Acute Assessment and Plan: O2 needs have improved, 45% and 45 L/min with Airvo system. She is on O2 at 2 L/min at home. (3) COPD (chronic obstructive pulmonary disease): Qualifiers: COPD type: unspecified COPD Qualified Code(s): J44.9 - Chronic obstructive pulmonary disease, unspecified Code(s): J44.9 - Chronic obstructive pulmonary disease, unspecified Status: Acute Assessment and Plan: on bronchodilator therapy Subjective Date/time seen: 12/01/19 18:05 She is in ICU 6, feels better, on Airvo with lower O2 needs 45 L/min and 45%. She is alert, some coughing, little sputum production. No pain. Afebrile. She has been negative for Covid twice. She will have another test on Tuesday. Today H/H 7.9/24.4%. WBC better, 15.8K from 18.3 yesterday. Admitted November 22 - pneumonia, sepsis with shock November 23 central line, ICU November 27 - atrial fib, converted to NSR. November 28 - drop in H/H 5.9/18.9% November 29 transferred back to ICU, higher O2 needs November 30 - lower, 45% and 45 L/min, improving. Review of Systems Review of Systems: Narrative: mild coughing, no chest pain, hungry, she is NPO for concerns that she may need to be intubated. Overall slow improvement. Exam Const: General: in distress mild (mild increase in respiratory effort; resp rate 24) Eyes: General: appearance normal, both eyes and all related structures Resp: Auscultation: diminished lung sounds Other: sat 96% on 45 L/min and 45% AirVo Cardio: Rate: tachycardic Other: sinus tach 114 GI: Auscultation: normal bowel sounds Skin: General skin exam: normal color Extrem: General: no pedal edema Objective Data Vital Signs Vital Signs: Vital Signs - 24 hr 11/30/19 19:54 11/30/19 19:59 11/30/19 20:00 Temperature 37.4 C Pulse Rate 102 H 105 H 103 H Respiratory Rate 27 H 18 21 H Blood Pressure 120/65 Pulse Oximetry 96 96 11/30/19 20:01 11/30/19 20:33 11/30/19 21:53 Temperature Pulse Rate 112 H 113 H 117 H Respiratory Rate 18 Blood Pressure Pulse Oximetry 11/30/19 22:00 12/01/19 00:00 12/01/19 01:04 Temperature 36.9 C Pulse Rate 99 103 H 61 Respiratory Rate 24 H 30 H Blood Pressure 109/56 L 95/54 L Pulse Oximetry 97 94 12/01/19 02:00 12/01/19 04:00 12/01/19 04:36 Temperature 36.9 C Pulse Rate 71 74 74 Respiratory Rate 21 H 25 H 28 H Blood Pressure 114/48 L 127/72 Pulse Oximetry 99 97 97 12/01/19 05:09 12/01/19 06:00 12/01/19 06:06 Temperature 37.4 C Pulse Rate 73 64 64 Respiratory Rate 21 H Blood Pressure 114/72 Pulse Oximetry 98 12/01/19 06:27 12/01/19 06:33 12/01/19 06:44 Temperature 36.9 C 37.7 C H 37.7 C H Pulse Rate 64 64 65 Respiratory Rate 29 H 23 H 26 H Blood Pressure 118/50 L 102/40 L 117/58 L Pulse Oximetry 100 100 99 12/01/19 07:44 12/01/19 08:00 12/01/19 08:44 Temperature 37.3 C 37.2 C 37.2 C Pulse Rate 66 66 68 Respiratory Rate 22 H 22 H 28 H Blood Pressure 117/51 L 85/61 L 85/69 L Pulse Oximetry 99 99 99 12/01/19 09:19 12/01/19 10:00
--- NOTE | 2019-12-01 18:50 | PC.NURSE ---
Pt became increasingly tachycardic, with heart rate ranging from 120-130, with respirations increasing from [address] Grady, and she advised she will increase scheduled Metoprolol dose from 25 mg to 50 mg, with a one time order of Metoprolol 25 mg po now. Will continue to monitor closely.
[2019-12-01] MEDS: ENOXAPARIN 40 MG/0.4 ML SYRINGE SUB-Q (20:54)
[2019-12-01] MEDS: INSULIN DETEMIR 100 UNITS/ML 10 UNITS SUB-Q (21:40)
[2019-12-01 22:31] LABS: Glucose Point of Care 253 (65-105)
[2019-12-01] MEDS: METOPROLOL TARTRATE 50 MG TAB PO (22:53)
[2019-12-02] VITALS (22 sets, daily range): BP systolic 102–134; BP diastolic 43–60; PULSE 56–90; RESP 17–28; TEMP 36.4–37.3; O2SAT 64–100
[2019-12-02] MEDS: INSULIN ASPART (*BKC) 100 UNITS/ML SUB-Q ×4 (00:18→18:07)
[2019-12-02 00:22] LABS: Glucose Point of Care 260 (65-105)
[2019-12-02 04:11] LABS: Base Excess ABG 6.9 mEq/l (+/-2.0); Carboxyhemoglobin 0.3 % THb (0-2.0); Fractional Inspired Oxygen 54 %; HCO3 ABG 32.6 mEq/l (22.0-26.0); Methemoglobin ABG 0.3 %THb (0-1.5); Oxygen Content ABG 13.2 %vol (16.0-22.0); Oxygen Saturation ABG 97.3 % (95.0-100.0); PCO2 ABG 52.7 mmHg (35.0-45.0); PO2 ABG 97.3 mmHg (80.0-100.0); Reduced Hemoglobin 3.4 %THb (0-5.0); Total Hemoglobin 9.7 g/dL (12.0-18.0); pH ABG 7.409 (7.350-7.450)
[2019-12-02 04:12] LABS: Device HIGH FLOW THERAPY; Modified Allen's Test Pass; Site Drawn LEFT RADIAL
[2019-12-02] MEDS: METOPROLOL TARTRATE 50 MG TAB PO ×3 (06:18→21:42)
[2019-12-02] MEDS: LEVOTHYROXINE SODIUM 88 MCG TABLET PO (06:18)
[2019-12-02] MEDS: CENTRAL LINE FLUSH 10 ML IV PUSH ×3 (06:18→21:42)
[2019-12-02 06:29] LABS: Hematocrit 22.7 % (37.0-47.0); Hemoglobin 7.4 g/dL (12.0-15.0); Mean Corpuscular HGB Conc 32.6 g/dl (32-36); Mean Corpuscular Hemoglobin 30.7 pg (26-34); Mean Corpuscular Volume 94.2 fl (80-100); Mean Platelet Volume 9.9 fl (7.4-10.4); Platelet Count Result 149 k/mm3 (150-375); Red Blood Count 2.41 M/mm3 (4.2-5.4); Red Cell Distribution Width 17.4 % (11.5-14.5); White Blood Count 14.2 K/mm3 (4.5-10.0)
[2019-12-02 06:46] LABS: Lactic Acid 0.9 mmol/L (0.7-2.1)
[2019-12-02 06:52] LABS: Alanine Aminotransferase 21 U/L (4-35); Albumin Level 2.6 g/dL (3.5-5.1); Alkaline Phosphatase 77 U/L (38-126); Aspartate Amino Transferase 28 U/L (14-36); Bilirubin,Total 1.2 mg/dL (0.2-1.3); Blood Urea Nitrogen 43 mg/dL (7-17); Calcium 7.8 mg/dL (8.4-10.2); Carbon Dioxide 36 mmol/L (22-30); Chloride 102 mmol/L (98-107); Estimated CRCL calculation 66 ml/min; Estimated Glomerular Filt Rate > 60; Glucose 222 mg/dL (65-105); Magnesium 1.9 mg/dL (1.6-2.3); Phosphorus 2.6 mg/dL (2.5-4.5); Potassium 3.5 mmol/L (3.4-5.0); Sodium 140 mmol/L (137-145)
[2019-12-02 07:16] LABS: Glucose Point of Care 221 (65-105)
[2019-12-02 07:24] LABS: CRP 17.6 mg/dL (<1.0)
[2019-12-02] MEDS: FLUTICASONE PROP 110 MCG INHALER 12 GM (*SP) 1 PUFF INHALATION ×2 (09:00→20:36)
[2019-12-02] MEDS: ALBUTEROL SULFATE (*SP) AEROSOL 1 PUFF 6 PUFF INHALATION ×4 (09:00→20:35)
[2019-12-02] MEDS: FUROSEMIDE INJ 40 MG/4 ML VIAL 20 MG IV PUSH (11:10)
[2019-12-02] MEDS: MAGNESIUM SULF 2 GM/WATER 50ML 2 GM/50 ML BAG IVPB (11:10)
[2019-12-02] MEDS: PANTOPRAZOLE SODIUM IV 40 MG VIAL IV PUSH ×2 (11:11→20:16)
[2019-12-02] MEDS: ASCORBIC ACID 500 MG TABLET PO (11:12)
[2019-12-02] MEDS: SIMETHICONE 125 MG CHEW TAB PO ×3 (11:12→18:10)
[2019-12-02] MEDS: POTASSIUM/PHOSPHORUS/SODIUM 1.5 GM PACKET 1 PACKET PO ×3 (11:12→18:09)
[2019-12-02] MEDS: MAGNESIUM OXIDE 400 MG TABLET PO (11:13)
[2019-12-02] MEDS: ATORVASTATIN 20 MG TABLET PO (11:13)
[2019-12-02] MEDS: SERTRALINE HCL 50 MG TABLET PO (11:13)
[2019-12-02] MEDS: GABAPENTIN 300 MG CAPSULE PO ×3 (11:13→18:09)
[2019-12-02] MEDS: INSULIN DETEMIR 100 UNITS/ML 12 UNITS SUB-Q ×2 (11:17→20:17)
--- NOTE | 2019-12-02 11:36 | WPDINTPN ---
Progress Note: A&P Assessment and Plan (1) Acute and chronic respiratory failure: Code(s): J96.20 - Acute and chronic respiratory failure, unspecified whether with hypoxia or hypercapnia Status: Acute Assessment and Plan: patient with acute on chronic respiratory failure. Worsening shortness of breath with increasing FiO2 requirements on 11/30/2019. Patient does have a history of COPD, chronic respiratory failure with 2 L home O2. Patient also has diastolic dysfunction and paroxysmal AFib. - Chest x-ray and ABGs reviewed, will wean FiO2 as tolerated. She is down to 30 L and 30% FiO2. She will be transitioned to nasal cannula /Oxymizer/ OxyMask later in the afternoon if she is able to tolerated. - will give a dose of Lasix 40 mg IV x1 now and may repeat a dose later this evening. - Continue patient on ceftriaxone and doxycycline. There has been some confusion as far as 3rd test of COVID is concerned. It has been reported as negative here in our system but as per the charge nurse it has never been sent on Tuesday. If her 3rd test for COVID is negative then will use BiPAP overnight. She does have history of obstructive sleep apnea and has been using CPAP/ BiPAP overnight at her baseline. (2) Suspected COVID-19 virus infection: Code(s): R68.89 - Other general symptoms and signs Status: Acute Assessment and Plan: patient was ruled out for COVID-19 on 11/23/2019 and 11/25/2019 and 11/28. but there is some suspicious that the 3rd test and has never been sent. Charge nurse will clarify the issue. - place patient on droplet, airborne and contact precautions (3) Pneumonia: Qualifiers: Laterality: unspecified laterality Lung location: unspecified part of lung Pneumonia type: due to unspecified organism Qualified Code(s): J18.9 - Pneumonia, unspecified organism Code(s): J18.9 - Pneumonia, unspecified organism Status: Acute Assessment and Plan: continue antibiotics as above. - CTA lungs 11/24/2019 showed patchy bilateral airspace disease consistent with multifocal pneumonia. no large central pulmonary embolism mildly thickened esophagus - She is currently on high-flow Oxygen but will later be transition to nasal cannula / Oxy mass/Oxymizer if she is able to tolerated. At baseline she uses 2 L of oxygen through nasal cannula. (4) Transaminitis: Code(s): R74.0 - Nonspecific elevation of levels of transaminase and lactic acid dehydrogenase [LDH] Status: Acute Assessment and Plan: RESOLVED: elevated LFTs likely related to decreased perfusion - hepatitis panel is negative - LFTS HAVE NORMALIZED - right upper quadrant ultrasound 11/26/2019 hepatic steatosis, status post cholecystectomy (5) Type 2 diabetes mellitus: Qualifiers: Diabetes mellitus complication detail: with polyneuropathy Diabetes mellitus complication status: with neurologic complications Diabetes mellitus shelter insulin use: without shelter use Qualified Code(s): E11.42 - Type 2 diabetes mellitus with diabetic polyneuropathy Code(s): E11.9 - Type 2 diabetes mellitus without complications Status: Acute Assessment and Plan: sliding scale insulin Accu-Cheks - Continue detemir But will increase the dose by 2 units. Blood sugars has been staying on the higher side. (6) Hypertension: Qualifiers: Hypertension type: unspecified Qualified Code(s): I10 - Essential (primary) hypertension Code(s): I10 - Essential (primary) hypertension Status: Acute Assessment and Plan: blood pressures have been stable, will hold all antihypertensive (7) COPD (chronic obstructive pulmonary disease): Qualifiers: COPD type: unspecified COPD Qualified Code(s): J44.9 - Chronic obstructive pulmonary disease, unspecified Code(s): J44.9 - Chronic obstructive pulmonary disease, unspecified Status: Ac
[2019-12-02 13:33] LABS: Glucose Point of Care 218 (65-105)
--- NOTE | 2019-12-02 15:22 | PM.IMPN ---
Progress Note: A&P Assessment and Plan (1) Septic shock: Code(s): A41.9 - Sepsis, unspecified organism; R65.21 - Severe sepsis with septic shock Status: Acute Assessment and Plan: Due to pneumonia Weaned off pressors (vasopressin) 5/3 Continue ceftriaxone and doxycycline day 8 Blood cultures and urine and stool cultures all negative COVID-19 testing NEGATIVE x2 will rescreen on tuesday Group b strep is positive (2) COPD (chronic obstructive pulmonary disease): Qualifiers: COPD type: unspecified COPD Qualified Code(s): J44.9 - Chronic obstructive pulmonary disease, unspecified Code(s): J44.9 - Chronic obstructive pulmonary disease, unspecified Status: Acute Assessment and Plan: Without evidence of acute exacerbation. Continue home regimen Continue supplemental oxygen High flow oxygen (3) Suspected COVID-19 virus infection: Code(s): R68.89 - Other general symptoms and signs Status: Acute Assessment and Plan: COVID-19 testing NEGATIVE x2, pt to have rpt screen (4) Transaminitis: Code(s): R74.0 - Nonspecific elevation of levels of transaminase and lactic acid dehydrogenase [LDH] Status: Acute Assessment and Plan: Acute hepatitis panel negative. Likely due to his hepatic steatosis plus septic shock U/s with steatosis, no GB, no CBD dilatation 5/ abd pain may be due to gastritis, and has resolved Nausea and vomiting thought secondary to ileus secondary to pneumonia which has resolved, continue supportive care having formed BMs which were occult blood negative Bilirubin elevated and CT of the abdomen benign, as per previous note (5) Pneumonia: Qualifiers: Pneumonia type: due to unspecified organism Laterality: unspecified laterality Lung location: unspecified part of lung Qualified Code(s): J18.9 - Pneumonia, unspecified organism Code(s): J18.9 - Pneumonia, unspecified organism Status: Acute Assessment and Plan: Assumed community-acquired. Not Responding to ceftriaxone and azithromycin. Cultures have been negative. pulmonolgy has seen and ICU attending. changed to iv doxycycline and iv ceftriazone (6) Anemia: Code(s): D64.9 - Anemia, unspecified Status: Acute Assessment and Plan: Hemoglobin dropped to 5.9 overnight from 7.4. No reports of melena and stool occult blood is negative. ct abdomen checked, pt had blood transfusion (7) Atrial fibrillation: Code(s): I48.91 - Unspecified atrial fibrillation Status: Acute Assessment and Plan: Episode 5/6. Converted spontaneously back to sinus rhythm and now on low-dose beta-franca off anticoagulation due to hb drop (8) Acute and chronic respiratory failure: Code(s): J96.20 - Acute and chronic respiratory failure, unspecified whether with hypoxia or hypercapnia Status: Acute Assessment and Plan: with hypoxia thought secondary to pna with normal echo . continue supportive care and high flow oxygen Subjective Date/time seen: 12/02/19 15:22 Interval history: Discuused case with icu attending. pt Admitted 11/22 that with pneumonia and sepsis with shock. Requiring oxygen on high flow Episode of AFib 11/27 with converted back to sinus rhythm. Anticoagulated which was discontinued am 11/28. when hemoglobin dropped but stool is guaiac negative pt received blood covid x2 are negative awaiting rpt covid test on tuesday Review of Systems Respiratory: Respiratory: Reports cough and Reports dyspnea Exam Narrative: Exam Narrative: Temp Pulse Resp BP Pulse Ox 37.1 C 118 H 24 H 114/58 L 95 12/01/19 12:00 12/01/19 14:00 12/01/19 14:00 12/01/19 14:00 12/01/19 14:00 mild acute resp distress HR 66 RR23 pulse ox 90% on high flow of 4
[2019-12-02 16:47] LABS: Glucose Point of Care 202 (65-105)
[2019-12-02] MEDS: ENOXAPARIN 40 MG/0.4 ML SYRINGE SUB-Q (20:16)
[2019-12-02 20:59] LABS: Glucose Point of Care 248 (65-105)
[2019-12-03] VITALS (25 sets, daily range): BP systolic 103–127; BP diastolic 42–69; PULSE 55–88; RESP 14–328; TEMP 35.8–37.2; O2SAT 18–100
[2019-12-03] MEDS: INSULIN ASPART (*BKC) 100 UNITS/ML SUB-Q ×5 (00:23→21:30)
[2019-12-03 00:29] LABS: Glucose Point of Care 272 (65-105)
[2019-12-03 05:18] LABS: Hematocrit 22.6 % (37.0-47.0); Mean Corpuscular HGB Conc 30.5 g/dl (32-36); Mean Corpuscular Hemoglobin 29.5 pg (26-34); Mean Corpuscular Volume 96.6 fl (80-100); Mean Platelet Volume 10.7 fl (7.4-10.4); Platelet Count Result 155 k/mm3 (150-375); Red Blood Count 2.34 M/mm3 (4.2-5.4); White Blood Count 12.8 K/mm3 (4.5-10.0)
[2019-12-03 05:33] LABS: Hemoglobin 6.9 g/dL (12.0-15.0)
[2019-12-03 05:39] LABS: Alanine Aminotransferase 24 U/L (4-35); Albumin Level 2.5 g/dL (3.5-5.1); Alkaline Phosphatase 83 U/L (38-126); Aspartate Amino Transferase 38 U/L (14-36); Bilirubin,Total 0.9 mg/dL (0.2-1.3); Blood Urea Nitrogen 36 mg/dL (7-17); Calcium 7.6 mg/dL (8.4-10.2); Carbon Dioxide 37 mmol/L (22-30); Chloride 99 mmol/L (98-107); Estimated CRCL calculation 66 ml/min; Estimated Glomerular Filt Rate > 60; Glucose 245 mg/dL (65-105); Magnesium 2.2 mg/dL (1.6-2.3); Phosphorus 3.1 mg/dL (2.5-4.5); Potassium 3.2 mmol/L (3.4-5.0); Sodium 137 mmol/L (137-145)
[2019-12-03 05:41] LABS: Alveolar/Arterial O2 Gradient 161.8 mmHg; Base Excess ABG 7.4 mEq/l (+/-2.0); Carboxyhemoglobin 0.3 % THb (0-2.0); Fractional Inspired Oxygen 40 %; HCO3 ABG 32.5 mEq/l (22.0-26.0); Methemoglobin ABG 0.3 %THb (0-1.5); Oxygen Content ABG 13.8 %vol (16.0-22.0); Oxyhemoglobin 92.8 % THb (90.0-100.0); PCO2 ABG 48.5 mmHg (35.0-45.0); PO2 ABG 67.6 mmHg (80.0-100.0); PO2 FiO2 Ratio Arterial Blood 1.69 %; Reduced Hemoglobin 6.6 %THb (0-5.0); Total Hemoglobin 10.5 g/dL (12.0-18.0); pH ABG 7.444 (7.350-7.450)
[2019-12-03 05:42] LABS: Device HIGH FLOW THERAPY; Site Drawn RIGHT BRACHIAL
[2019-12-03 05:44] LABS: CRP 12.8 mg/dL (<1.0)
[2019-12-03] MEDS: CENTRAL LINE FLUSH 10 ML IV PUSH ×3 (06:49→21:28)
[2019-12-03] MEDS: LEVOTHYROXINE SODIUM 88 MCG TABLET PO (06:49)
[2019-12-03] MEDS: METOPROLOL TARTRATE 50 MG TAB PO ×3 (06:51→21:29)
[2019-12-03] MEDS: FLUTICASONE PROP 110 MCG INHALER 12 GM (*SP) 1 PUFF INHALATION ×2 (08:23→20:01)
[2019-12-03] MEDS: ALBUTEROL SULFATE (*SP) AEROSOL 1 PUFF 6 PUFF INHALATION ×4 (08:23→20:01)
[2019-12-03] MEDS: SODIUM CHLORIDE 0.9% IV 250 ML 30 ML IV CONT (08:41)
[2019-12-03] MEDS: PANTOPRAZOLE SODIUM IV 40 MG VIAL IV PUSH ×2 (08:43→21:29)
[2019-12-03] MEDS: ATORVASTATIN 20 MG TABLET PO (08:43)
[2019-12-03] MEDS: POTASSIUM/PHOSPHORUS/SODIUM 1.5 GM PACKET 1 PACKET PO ×3 (08:43→18:11)
[2019-12-03] MEDS: GABAPENTIN 300 MG CAPSULE PO ×3 (08:43→18:11)
[2019-12-03] MEDS: SIMETHICONE 125 MG CHEW TAB PO ×3 (08:43→18:10)
[2019-12-03] MEDS: FUROSEMIDE INJ 40 MG/4 ML VIAL 20 MG IV PUSH (08:45)
[2019-12-03] MEDS: MAGNESIUM OXIDE 400 MG TABLET PO (08:46)
[2019-12-03] MEDS: ASCORBIC ACID 500 MG TABLET PO (08:46)
[2019-12-03] MEDS: INSULIN DETEMIR 100 UNITS/ML 16 UNITS SUB-Q ×2 (08:46→21:31)
[2019-12-03] MEDS: SERTRALINE HCL 50 MG TABLET PO (08:47)
--- NOTE | 2019-12-03 10:14 | PM.CNGS ---
Assessment and Plan Assessment and plan (1) Cellulitis of right breast: Code(s): N61.0 - Mastitis without abscess Status: Acute Assessment and Plan: She has cellulitis of the right breast with possible abscess. Etiology is unknown but there does appear to be a scabbed area that was an opening to the skin and could have been the source for this skin infection. There is no obvious abscess on my exam and no diagnostic imaging of the breast. She is currently receiving IV Doxycycline and Rocephin for her respiratory issues. We would recommend continuing the antibiotics at this time and monitoring the area while COVID testing is pending. We may consider getting an ultrasound of this area in the next 1-2 days to further assess for a fluid collection if no improvement. Thank you for allowing me to see this patient in consultation and we will continue to follow along with you. (2) Pneumonia: Qualifiers: Pneumonia type: due to unspecified organism Laterality: unspecified laterality Lung location: unspecified part of lung Qualified Code(s): J18.9 - Pneumonia, unspecified organism Code(s): J18.9 - Pneumonia, unspecified organism Status: Acute Assessment and Plan: Decreasing O2 requirements and clinically improving. Currently on IV abx. Management per Pulmonology and Textile Worker. (3) Suspected COVID-19 virus infection: Code(s): R68.89 - Other general symptoms and signs Status: Acute Assessment and Plan: Tested negative x 2-3 times, retested yesterday and results pending. (4) COPD (chronic obstructive pulmonary disease): Qualifiers: COPD type: unspecified COPD Qualified Code(s): J44.9 - Chronic obstructive pulmonary disease, unspecified Code(s): J44.9 - Chronic obstructive pulmonary disease, unspecified Status: Acute (5) Type 2 diabetes mellitus: Qualifiers: Diabetes mellitus complication detail: with polyneuropathy Diabetes mellitus complication status: with neurologic complications Diabetes mellitus adjunct faculty for medical terminology insulin use: without adjunct faculty for medical terminology use Qualified Code(s): E11.42 - Type 2 diabetes mellitus with diabetic polyneuropathy Code(s): E11.9 - Type 2 diabetes mellitus without complications Status: Acute Assessment and Plan: Blood glucose running in the 200's. Would benefit from improved glycemic control. (6) Atrial fibrillation: Code(s): I48.91 - Unspecified atrial fibrillation Status: Acute Assessment and Plan: Paroxysmal atrial fibrillation. Had an episode of a. fib during this hospitalization and spontaneously converted back to sinus rhythm. Did receive therapeutic-dosed Lovenox to initiate anticoagulation, but this was discontinued on 11/29/19 due to anemia. (7) Anemia: Code(s): D64.9 - Anemia, unspecified Status: Acute Assessment and Plan: Hgb 6.9 today and receiving blood transfusion. Stool occult negative. Abd/pelvis CT checked for retroperitoneal bleed and negative on 11/28. Management per Hospitalist. Continue to monitor labs. (8) Hypertension: Qualifiers: Hypertension type: unspecified Qualified Code(s): I10 - Essential (primary) hypertension Code(s): I10 - Essential (primary) hypertension Status: Acute Additional Plan I discussed the patient's case and formulated the plan of care with Dr. Duke today. History of Present Illness Consult details Consult date: 12/03/19 Reason for consult: other (Possible right breast abscess) Requesting physician: Rosana Harrington MD Narrative: This is a 59-year-old obese female who was admitted to [facility] on 11/24/19 with complaints of fever and shortness of breath. She has multiple medical problems including COPD with chronic respiratory failure on 2L home oxygen, paroxysmal atrial fibrillation, hypertension, hyperlipidemia, obstructive sleep apnea, and obesity. The patient was found to be in septic
--- NOTE | 2019-12-03 11:05 | PCPTNOTE ---
RN requested hold on PT this a.m. - want to wait until COVID test results are known.
--- NOTE | 2019-12-03 11:08 | PCDIET ---
Nutrition Follow-Up Complete: Nutrition Diagnosis: Involuntary weight loss related to poor appetite prior to admission as evidenced by reported 2-13 pound weight loss. Nutrition Goal: Patient will consume 75% of meals or greater. Goal not met. Patient has eaten very little since last review, but did take some Glucerna over the weekend. Recommend adding Glucerna Shake (220kcal, 10g protein) TID. Last recorded weight is 102.4 kg. Bowel Motility: +BM today. Labs Reviewed: Hgb (6.9), Hct (22.6), Glu (245), K (3.2), Alb (2.5), Dudley Ca (8.8) Meds Noted: Albuterol, Vitamin C, Rocephin, Doxycycline, Novolog, Levemir, Mag-Ox, Protonix, Phos-NaK, Lasix Additional Notes: Levemir increased today. No documented pressure sores. Will continue to monitor with same goal (75% of meals and/or supplements). Nutrition Monitoring and Evaluation: Follow up every 3 days.
--- NOTE | 2019-12-03 11:09 | PCOTNOTE ---
Per RN, hold until COVID test returns in PM. Will attempt OT evaluation when medically appropriate.
[2019-12-03 11:33] LABS: Glucose Point of Care 271 (65-105)
--- NOTE | 2019-12-03 13:29 | WPDINTPN ---
Progress Note: A&P Assessment and Plan (1) Acute and chronic respiratory failure: Code(s): J96.20 - Acute and chronic respiratory failure, unspecified whether with hypoxia or hypercapnia Status: Acute Assessment and Plan: patient with acute on chronic respiratory failure. Worsening shortness of breath with increasing FiO2 requirements on 11/30/2019. Patient does have a history of COPD, chronic respiratory failure with 2 L home O2. Patient also has diastolic dysfunction and paroxysmal AFib. - Chest x-ray and ABGs reviewed, will wean FiO2 as tolerated. patient now on 7 L nasal cannula. - diuresed well with Lasix on 12/02/2019. - Continue patient on ceftriaxone and doxycycline. - discussed SARS-CoV-2 PCR 2 negative x3 - She does have history of obstructive sleep apnea and has been using CPAP/ BiPAP overnight at her baseline. (2) Suspected COVID-19 virus infection: Code(s): R68.89 - Other general symptoms and signs Status: Acute Assessment and Plan: patient was ruled out for COVID-19 on 11/23/2019 and 11/25/2019 and 11/29/2019.. - patient remains on droplet, airborne and contact precautions (3) Pneumonia: Qualifiers: Pneumonia type: due to unspecified organism Laterality: unspecified laterality Lung location: unspecified part of lung Qualified Code(s): J18.9 - Pneumonia, unspecified organism Code(s): J18.9 - Pneumonia, unspecified organism Status: Acute Assessment and Plan: continue antibiotics as above. - CTA lungs 11/24/2019 showed patchy bilateral airspace disease consistent with multifocal pneumonia. no large central pulmonary embolism mildly thickened esophagus (4) Transaminitis: Code(s): R74.0 - Nonspecific elevation of levels of transaminase and lactic acid dehydrogenase [LDH] Status: Acute Assessment and Plan: RESOLVED: elevated LFTs likely related to decreased perfusion - hepatitis panel is negative - LFTS HAVE NORMALIZED - right upper quadrant ultrasound 11/26/2019 hepatic steatosis, status post cholecystectomy (5) Type 2 diabetes mellitus: Qualifiers: Diabetes mellitus complication detail: with polyneuropathy Diabetes mellitus complication status: with neurologic complications Diabetes mellitus half-way insulin use: without terminal press operator use Qualified Code(s): E11.42 - Type 2 diabetes mellitus with diabetic polyneuropathy Code(s): E11.9 - Type 2 diabetes mellitus without complications Status: Acute Assessment and Plan: sliding scale insulin Accu-Cheks - increase detemir as blood sugars has been staying on the higher side. (6) Hypertension: Qualifiers: Hypertension type: unspecified Qualified Code(s): I10 - Essential (primary) hypertension Code(s): I10 - Essential (primary) hypertension Status: Acute Assessment and Plan: blood pressures have been stable, will hold all antihypertensive (7) COPD (chronic obstructive pulmonary disease): Qualifiers: COPD type: unspecified COPD Qualified Code(s): J44.9 - Chronic obstructive pulmonary disease, unspecified Code(s): J44.9 - Chronic obstructive pulmonary disease, unspecified Status: Acute Assessment and Plan: history of COPD, on albuterol, Atrovent and fluticasone inhalers. She is not actively wheezing. Systemic steroid not indicated. (8) DVT prophylaxis: Code(s): Z29.9 - Encounter for prophylactic measures, unspecified Status: Acute Assessment and Plan: Lovenox SQ prophylactic dose (9) Dietary counseling and surveillance: Code(s): Z71.3 - Dietary counseling and surveillance Status: Acute Assessment and Plan: patient started on diet. Additional Plan discussed with patient in details, updated her with her condition and plan of care. Code status: Full code Critical care time spent: 34 minutes
[2019-12-03 13:38] LABS: Hematocrit 27.4 % (37.0-47.0); Hemoglobin 8.8 g/dL (12.0-15.0)
[2019-12-03 15:31] LABS: SARS-CoV-2 RNA PCR Negative
--- NOTE | 2019-12-03 16:55 | PC.NURSE ---
This patient, Court Ybarra, was transferred to [ ] on 12/03/19 at 1656. Personal belongings sent with patient. Belongings list checked and signed with receiving [ ]. Report given to [DAVID Alexander @ 1421]. Appropriate documentation sent with patient.
[2019-12-03 17:47] LABS: Glucose Point of Care 241 (65-105)
--- NOTE | 2019-12-03 17:56 | PM.IMPN ---
Progress Note: A&P Assessment and Plan (1) Septic shock: Code(s): A41.9 - Sepsis, unspecified organism; R65.21 - Severe sepsis with septic shock Status: Acute Assessment and Plan: Due to pneumonia Weaned off pressors (vasopressin) 5/ Continue ceftriaxone and doxycycline day 8 Blood cultures and urine and stool cultures all negative COVID-19 testing NEGATIVE x2 will rescreen on tuesday Group b strep is positive 12/03/19 17:56 Patient is 59-year-old female admitted with respiratory distress in ICU was a concern the patient may be positive for COVID and has been tested 3 times and negative, today patient states feeling better not a short of breath compared to when she arrived patient is seen by bologna lacer clinically stable and will transfer patient out of ICU, patient denies any chest pain shortness of breath palpitation fever or chill (2) COPD (chronic obstructive pulmonary disease): Qualifiers: COPD type: unspecified COPD Qualified Code(s): J44.9 - Chronic obstructive pulmonary disease, unspecified Code(s): J44.9 - Chronic obstructive pulmonary disease, unspecified Status: Acute Assessment and Plan: Without evidence of acute exacerbation. Continue home regimen Continue supplemental oxygen High flow oxygen (3) Suspected COVID-19 virus infection: Code(s): R68.89 - Other general symptoms and signs Status: Acute Assessment and Plan: COVID-19 testing NEGATIVE x2, pt to have rpt screen (4) Transaminitis: Code(s): R74.0 - Nonspecific elevation of levels of transaminase and lactic acid dehydrogenase [LDH] Status: Acute Assessment and Plan: Acute hepatitis panel negative. Likely due to his hepatic steatosis plus septic shock U/s with steatosis, no GB, no CBD dilatation 5/ abd pain may be due to gastritis, and has resolved Nausea and vomiting thought secondary to ileus secondary to pneumonia which has resolved, continue supportive care having formed BMs which were occult blood negative Bilirubin elevated and CT of the abdomen benign, as per previous note (5) Pneumonia: Qualifiers: Pneumonia type: due to unspecified organism Laterality: unspecified laterality Lung location: unspecified part of lung Qualified Code(s): J18.9 - Pneumonia, unspecified organism Code(s): J18.9 - Pneumonia, unspecified organism Status: Acute Assessment and Plan: Assumed community-acquired. Not Responding to ceftriaxone and azithromycin. Cultures have been negative. pulmonolgy has seen and ICU attending. changed to iv doxycycline and iv ceftriazone (6) Anemia: Code(s): D64.9 - Anemia, unspecified Status: Acute Assessment and Plan: Hemoglobin dropped to 5.9 overnight from 7.4. No reports of melena and stool occult blood is negative. ct abdomen checked, pt had blood transfusion (7) Atrial fibrillation: Code(s): I48.91 - Unspecified atrial fibrillation Status: Acute Assessment and Plan: Episode 5/6. Converted spontaneously back to sinus rhythm and now on low-dose beta-franca off anticoagulation due to hb drop (8) Acute and chronic respiratory failure: Code(s): J96.20 - Acute and chronic respiratory failure, unspecified whether with hypoxia or hypercapnia Status: Acute Assessment and Plan: with hypoxia thought secondary to pna with normal echo . continue supportive care and high flow oxygen Subjective Date/time seen: 12/03/19 17:56 Patient is 59-year-old female admitted with respiratory distress in ICU was a concern the patient may be positive for COVID and has been tested 3 times and negative, today patient states feeling better not a short of breath compared to when she arrived patient is seen by bologna lacer clinically stable and will transfer patient out of ICU, patient denies any chest pain shortness of breath palpitation fever or chill Re
[2019-12-03] MEDS: ALTEPLASE 2 MG VIAL (CATHFLO) IV PUSH ×2 (19:01→19:46)
[2019-12-03 20:30] LABS: Haptoglobin 11 mg/dL (43-212)
[2019-12-03 20:32] LABS: Glucose Point of Care 228 (65-105)
[2019-12-03] MEDS: CENTRAL LINE FLUSH 20 ML IV PUSH (21:28)
[2019-12-04] VITALS (21 sets, daily range): BP systolic 108–125; BP diastolic 40–54; PULSE 51–120; RESP 20–25; TEMP 35.8–36.7; O2SAT 91–100
[2019-12-04 04:21] LABS: Glucose Point of Care 168 (65-105)
[2019-12-04] MEDS: CENTRAL LINE FLUSH 20 ML IV PUSH (05:05)
[2019-12-04] MEDS: METOPROLOL TARTRATE 50 MG TAB PO ×3 (05:05→21:30)
[2019-12-04] MEDS: CENTRAL LINE FLUSH 10 ML IV PUSH ×3 (05:06→21:30)
[2019-12-04] MEDS: LEVOTHYROXINE SODIUM 88 MCG TABLET PO (05:07)
[2019-12-04 05:40] LABS: Hematocrit 26.7 % (37.0-47.0); Hemoglobin 8.4 g/dL (12.0-15.0); Mean Corpuscular HGB Conc 31.5 g/dl (32-36); Mean Corpuscular Hemoglobin 29.5 pg (26-34); Mean Corpuscular Volume 93.7 fl (80-100); Mean Platelet Volume 10.3 fl (7.4-10.4); Platelet Count Result 164 k/mm3 (150-375); Red Blood Count 2.85 M/mm3 (4.2-5.4)
[2019-12-04 06:07] LABS: Alanine Aminotransferase 21 U/L (4-35); Albumin Level 2.7 g/dL (3.5-5.1); Alkaline Phosphatase 79 U/L (38-126); Aspartate Amino Transferase 26 U/L (14-36); Bilirubin,Total 0.9 mg/dL (0.2-1.3); Blood Urea Nitrogen 27 mg/dL (7-17); Calcium 7.9 mg/dL (8.4-10.2); Carbon Dioxide 37 mmol/L (22-30); Chloride 98 mmol/L (98-107); Estimated CRCL calculation 74 ml/min; Estimated Glomerular Filt Rate > 60; Glucose 160 mg/dL (65-105); Magnesium 1.9 mg/dL (1.6-2.3); Phosphorus 3.7 mg/dL (2.5-4.5); Potassium 3.4 mmol/L (3.4-5.0); Sodium 138 mmol/L (137-145)
[2019-12-04 08:08] LABS: Glucose Point of Care 158 (65-105)
[2019-12-04] MEDS: INSULIN DETEMIR 100 UNITS/ML 16 UNITS SUB-Q ×2 (08:17→22:02)
[2019-12-04] MEDS: ASCORBIC ACID 500 MG TABLET PO (08:17)
[2019-12-04] MEDS: POTASSIUM/PHOSPHORUS/SODIUM 1.5 GM PACKET 1 PACKET PO ×3 (08:18→17:24)
[2019-12-04] MEDS: SERTRALINE HCL 50 MG TABLET PO (08:18)
[2019-12-04] MEDS: ATORVASTATIN 20 MG TABLET PO (08:18)
[2019-12-04] MEDS: GABAPENTIN 300 MG CAPSULE PO ×3 (08:18→17:24)
[2019-12-04] MEDS: PANTOPRAZOLE SODIUM IV 40 MG VIAL IV PUSH ×2 (08:18→21:30)
[2019-12-04] MEDS: MAGNESIUM OXIDE 400 MG TABLET PO (08:18)
[2019-12-04] MEDS: SIMETHICONE 125 MG CHEW TAB PO ×3 (08:18→17:24)
[2019-12-04] MEDS: ALBUTEROL SULFATE (*SP) AEROSOL 1 PUFF 6 PUFF INHALATION ×4 (09:05→19:19)
[2019-12-04] MEDS: FLUTICASONE PROP 110 MCG INHALER 12 GM (*SP) 1 PUFF INHALATION ×2 (09:05→19:20)
--- NOTE | 2019-12-04 10:33 | PM.PNGS ---
Progress Note: A&P Assessment and Plan (1) Cellulitis of right breast: Code(s): N61.0 - Mastitis without abscess Status: Acute Assessment and Plan: Right breast cellulitis and possible abscess. Unknown etiology. Appears unchanged today. Still not having any pain. Will get an ultrasound of this area today to assess for a fluid collection. Continue IV antibiotics. (2) Pneumonia: Qualifiers: Laterality: unspecified laterality Lung location: unspecified part of lung Pneumonia type: due to unspecified organism Qualified Code(s): J18.9 - Pneumonia, unspecified organism Code(s): J18.9 - Pneumonia, unspecified organism Status: Acute Assessment and Plan: Repeat COVID-19 testing from 12/01 negative. (3) COPD (chronic obstructive pulmonary disease): Qualifiers: COPD type: unspecified COPD Qualified Code(s): J44.9 - Chronic obstructive pulmonary disease, unspecified Code(s): J44.9 - Chronic obstructive pulmonary disease, unspecified Status: Acute (4) Type 2 diabetes mellitus: Qualifiers: Diabetes mellitus complication detail: with polyneuropathy Diabetes mellitus complication status: with neurologic complications Diabetes mellitus intermediate insulin use: without watermelon inspector use Qualified Code(s): E11.42 - Type 2 diabetes mellitus with diabetic polyneuropathy Code(s): E11.9 - Type 2 diabetes mellitus without complications Status: Acute (5) Anemia: Code(s): D64.9 - Anemia, unspecified Status: Acute Additional Plan Discussed plan of care with Dr. Franklin. Subjective Subjective Date/Time Seen: 12/04/19 10:00 Patient reports: no new complaints Interval history: Patient seen and examined. No new complaints today. Still not having any pain near the right upper outer breast cellulitis. No drainage. No other complaints at this time. Review of Systems Review of Systems: All systems reviewed & are unremarkable except as noted in HPI and below Exam Const: General: comfortable, no acute distress, alert and awake Orientation/consciousness: patient oriented x3 Skin: Other: Induration and erythema at the right upper outer breast at about 10 o'clock position that appears unchanged from yesterday. No drainage or new areas of fluctuance. Neuro: General: moves all extremities Psych: Mental Status: mental status grossly normal Speech and movement: Normal speech and movement present Affect: normal affect Attitude: cooperative Objective Data Vital Signs Vital Signs: Vital Signs - 24 hr 12/03/19 10:45 12/03/19 11:22 12/03/19 11:48 Temperature 37.2 C 37.1 C Pulse Rate 58 L 59 L 60 Respiratory Rate 29 H 25 H 18 Blood Pressure 118/60 116/53 L Pulse Oximetry 99 99 97 12/03/19 12:00 12/03/19 13:31 12/03/19 14:00 Temperature 37.0 C Pulse Rate 58 L 59 L 60 Respiratory Rate 30 H 15 Blood Pressure 119/68 113/46 L Pulse Oximetry 97 96 12/03/19 16:00 12/03/19 18:00 12/03/19 19:44 Temperature 37.0 C 36.6 C Pulse Rate 56 L 58 L 58 L Respiratory Rate 19 20 Blood Pressure 111/68 127/43 L Pulse Oximetry 100 98 12/03/19 20:00 12/03/19 20:09 12/03/19 22:00 Temperature Pulse Rate 62 58 L 56 L Respiratory Rate 17 Blood Pressure Pulse Oximetry 96 12/03/19 22:30 12/04/19 00:00 12/04/19 02:00 Temperature 36.4 C Pulse Rate 88 55 L 55 L Respiratory Rate 22 H 24 H Blood Pressure 125/54 L Pulse Oximetry 99 100 12/04/19 02:15 12/04/19 03:48 12/04/19 04:00 Temperature 36.7 C Pulse Rate 54 L 51 L 99 Respiratory Rate 22 H 20 Blood Pressure 112/49 L Pulse Oximetry 98 99 12/04/19 04:39 12/04/19 05:53 12/04/19 08:00 Temperature 36.6 C Pulse Rate 51 L 54 L 56 L Respiratory Rate 20 25 H Blood Pressure 117/49 L Pulse Oximetry 97 97 12/04/19 09:04 Temperature Pulse Rate 60 Respiratory Rate Blood Pressure Pulse Oximetry 92 Intake/Output Intake/Output: Inta
[2019-12-04 12:03] LABS: Glucose Point of Care 252 (65-105)
[2019-12-04] MEDS: INSULIN ASPART (*BKC) 100 UNITS/ML SUB-Q ×3 (12:22→22:01)
--- NOTE | 2019-12-04 12:22 | P.PNIM_ITS ---
Progress Note: A&P Assessment and Plan (1) Pneumonia: Qualifiers: Pneumonia type: due to unspecified organism Laterality: unspecified laterality Lung location: unspecified part of lung Qualified Code(s): J18.9 - Pneumonia, unspecified organism Code(s): J18.9 - Pneumonia, unspecified organism Status: Acute Assessment and Plan: * Ceftriaxone and doxycycline DAY 11 * Slowly improving (2) Cellulitis of right breast: Code(s): N61.0 - Mastitis without abscess Status: Acute Assessment and Plan: * First noted 5/10 PM while on ceftriaxone and doxycycline * 5/ U/s with no abscess, possible developing phlegmon * Add vancomycin (3) COPD (chronic obstructive pulmonary disease): Qualifiers: COPD type: unspecified COPD Qualified Code(s): J44.9 - Chronic obstructive pulmonary disease, unspecified Code(s): J44.9 - Chronic obstructive pulmonary disease, unspecified Status: Acute Assessment and Plan: * Without evidence of acute exacerbation. * Continue home regimen * Continue supplemental oxygen (on 2 LPM at home) * Wean from current 4 LPM as tolerated (4) Transaminitis: Code(s): R74.0 - Nonspecific elevation of levels of transaminase and lactic acid dehydrogenase [LDH] Status: Acute Assessment and Plan: * Acute hepatitis panel negative. * Likely due to his hepatic steatosis plus septic shock * U/s with steatosis, no GB, no CBD dilatation * 5/ abd pain may be due to gastritis, and has resolved * Nausea and vomiting thought secondary to ileus secondary to pneumonia which has resolved, continue supportive care * having formed BMs which were occult blood negative * Bilirubin elevated and CT of the abdomen benign, as per previous note * LFTs improving (5) Atrial fibrillation: Qualifiers: Atrial fibrillation type: unspecified Qualified Code(s): I48.91 - Unspecified atrial fibrillation Code(s): I48.91 - Unspecified atrial fibrillation Status: Acute Assessment and Plan: Episode 5/6. Converted spontaneously back to sinus rhythm and now on low-dose beta-franca off anticoagulation due to hb drop (6) Anemia: Qualifiers: Anemia type: unspecified type Qualified Code(s): D64.9 - Anemia, unspecified Code(s): D64.9 - Anemia, unspecified Status: Acute Assessment and Plan: 12/03 Hgb 8.4 No overt bleeding (7) Acute and chronic respiratory failure: Qualifiers: Respiratory failure complication: hypoxia and hypercapnia Qualified Code(s): J96.21 - Acute and chronic respiratory failure with hypoxia; J96.22 - Acute and chronic respiratory failure with hypercapnia Code(s): J96.20 - Acute and chronic respiratory failure, unspecified whether with hypoxia or hypercapnia Status: Acute Assessment and Plan: with hypoxia thought secondary to pna with normal echo wean oxygen as tolerated (8) Septic shock: Code(s): A41.9 - Sepsis, unspecified organism; R65.21 - Severe sepsis with septic shock Status: Acute Assessment and Plan: * Due to pneumonia * Weaned off pressors (vasopressin) / * Continue ceftriaxone and doxycycline day 8 * Blood cultures and urine and stool cultures all negative * COVID-19 testing NEGATIVE x2 will rescreen on tuesday * Group b strep is positive * Resolved (9) Suspected COVID-19 virus infection: Code(s): R68.89 - Other general symptoms and signs Status: Acute Assessment and Plan: * COVID-19
--- NOTE | 2019-12-04 12:22 | PM.IMPN ---
Progress Note: A&P Assessment and Plan (1) Pneumonia: Qualifiers: Pneumonia type: due to unspecified organism Laterality: unspecified laterality Lung location: unspecified part of lung Qualified Code(s): J18.9 - Pneumonia, unspecified organism Code(s): J18.9 - Pneumonia, unspecified organism Status: Acute Assessment and Plan: Ceftriaxone and doxycycline DAY 11 Slowly improving (2) Cellulitis of right breast: Code(s): N61.0 - Mastitis without abscess Status: Acute Assessment and Plan: First noted 5/10 PM while on ceftriaxone and doxycycline 5 U/s with no abscess, possible developing phlegmon Add vancomycin (3) COPD (chronic obstructive pulmonary disease): Qualifiers: COPD type: unspecified COPD Qualified Code(s): J44.9 - Chronic obstructive pulmonary disease, unspecified Code(s): J44.9 - Chronic obstructive pulmonary disease, unspecified Status: Acute Assessment and Plan: Without evidence of acute exacerbation. Continue home regimen Continue supplemental oxygen (on 2 LPM at home) Wean from current 4 LPM as tolerated (4) Transaminitis: Code(s): R74.0 - Nonspecific elevation of levels of transaminase and lactic acid dehydrogenase [LDH] Status: Acute Assessment and Plan: Acute hepatitis panel negative. Likely due to his hepatic steatosis plus septic shock U/s with steatosis, no GB, no CBD dilatation / abd pain may be due to gastritis, and has resolved Nausea and vomiting thought secondary to ileus secondary to pneumonia which has resolved, continue supportive care having formed BMs which were occult blood negative Bilirubin elevated and CT of the abdomen benign, as per previous note LFTs improving (5) Atrial fibrillation: Qualifiers: Atrial fibrillation type: unspecified Qualified Code(s): I48.91 - Unspecified atrial fibrillation Code(s): I48.91 - Unspecified atrial fibrillation Status: Acute Assessment and Plan: Episode 11/27. Converted spontaneously back to sinus rhythm and now on low-dose beta-franca off anticoagulation due to hb drop (6) Anemia: Qualifiers: Anemia type: unspecified type Qualified Code(s): D64.9 - Anemia, unspecified Code(s): D64.9 - Anemia, unspecified Status: Acute Assessment and Plan: 12/03 Hgb 8.4 No overt bleeding (7) Acute and chronic respiratory failure: Qualifiers: Respiratory failure complication: hypoxia and hypercapnia Qualified Code(s): J96.21 - Acute and chronic respiratory failure with hypoxia; J96.22 - Acute and chronic respiratory failure with hypercapnia Code(s): J96.20 - Acute and chronic respiratory failure, unspecified whether with hypoxia or hypercapnia Status: Acute Assessment and Plan: with hypoxia thought secondary to pna with normal echo wean oxygen as tolerated (8) Septic shock: Code(s): A41.9 - Sepsis, unspecified organism; R65.21 - Severe sepsis with septic shock Status: Acute Assessment and Plan: Due to pneumonia Weaned off pressors (vasopressin) / Continue ceftriaxone and doxycycline day 8 Blood cultures and urine and stool cultures all negative COVID-19 testing NEGATIVE x2 will rescreen on tuesday Group b strep is positive Resolved (9) Suspected COVID-19 virus infection: Code(s): R68.89 - Other general symptoms and signs Status: Acute Assessment and Plan: COVID-19 testing NEGATIVE x3 Subjective Date/time seen: 12/04/19 12:22 Interval history: Admitted with dyspnea, bilateral pneumonia. 12/03: Feeling better. Tolerated diet. Walked with walker with PT. Redness right breast w/o pain. No CP. Some DEL REAL. No edema. No gi/gu c/o. No abnormal bleeding. Review of Systems Review of Systems: All systems reviewed & are unremarkable except as noted in HPI and below Exam Narrative:
[2019-12-04 17:22] LABS: Glucose Point of Care 257 (65-105)
--- NOTE | 2019-12-04 18:55 | PC.NURSE ---
This patient, Court Ybarra, was transferred to [facility] on 12/04/19 at 1855. Personal belongings sent with patient. Report given to DAVID Gibbons. Appropriate documentation sent with patient.
--- NOTE | 2019-12-04 19:32 | PC.NURSE ---
This patient, Court Ybarra, was received from IMU on 12/04/19 at 1900. Personal belongings list checked and signed. Patient/family oriented to unit policies and routines
[2019-12-04 20:41] LABS: Glucose Point of Care 236 (65-105)
--- NOTE | 2019-12-04 21:47 | PM.PNPUL ---
Progress Note: A&P Assessment and Plan (1) Pneumonia: Qualifiers: Laterality: unspecified laterality Lung location: unspecified part of lung Pneumonia type: due to unspecified organism Qualified Code(s): J18.9 - Pneumonia, unspecified organism Code(s): J18.9 - Pneumonia, unspecified organism Status: Acute Assessment and Plan: She has responded to Rocephin, doxycycline with vancomycin started November 23, with bilateral infiltrates on CTA November 23. CXR December 03 shows stable bilateral infiltrates. She is stable on same O2. (2) Acute and chronic respiratory failure: Qualifiers: Respiratory failure complication: hypoxia and hypercapnia Qualified Code(s): J96.21 - Acute and chronic respiratory failure with hypoxia; J96.22 - Acute and chronic respiratory failure with hypercapnia Code(s): J96.20 - Acute and chronic respiratory failure, unspecified whether with hypoxia or hypercapnia Status: Acute Assessment and Plan: on O2 at home, usual amount is 32 L/min; now on 4 L/minute. Improved oxygenation; has been to the ICU twice, still has the Right subclavian triple lumen catheter placed November 23. May be able to have this stopped with transition to oral antibiotics. (3) COPD (chronic obstructive pulmonary disease): Qualifiers: COPD type: unspecified COPD Qualified Code(s): J44.9 - Chronic obstructive pulmonary disease, unspecified Code(s): J44.9 - Chronic obstructive pulmonary disease, unspecified Status: Acute Assessment and Plan: on Spiriva, not requiring frequent use of rescue bronchodilators. Subjective Date/time seen: 12/04/19 21:47 Interval history: Admitted with dyspnea, bilateral pneumonia. 12/03: Feeling better. Tolerated diet. Walked with walker with PT. Redness right breast w/o pain. No CP. Some DEL REAL. No edema. No gi/gu c/o. No abnormal bleeding. Exam Const: General: comfortable and no acute distress Orientation/consciousness: oriented to person, oriented to place and oriented to time HENMT: Head: normal to inspection Ears: hearing grossly normal bilaterally General nose exam: Normal external nose present Face and sinus: normal facial exam Eyes: General: appearance normal, both eyes and all related structures Chest: Other: right TLC Resp: Effort & Inspection: able to speak in complete sentences Auscultation: diminished lung sounds Other: sat 96% on 45 L/min and 45% AirVo Cardio: Rate: regular rate Rhythm: regular rhythm Heart sounds: S1 normal heart sound present and S2 normal heart sound present GI: Inspection: normal to inspection Auscultation: normal bowel sounds Skin: General skin exam: normal color Neuro: General: oriented to person, oriented to place, oriented to time and moves all extremities Objective Data Vital Signs Vital Signs: Vital Signs - 24 hr 12/03/19 22:00 12/03/19 22:30 12/04/19 00:00 Temperature 36.4 C Pulse Rate 56 L 88 55 L Respiratory Rate 22 H 24 H Blood Pressure 125/54 L Pulse Oximetry 99 100 12/04/19 02:00 12/04/19 02:15 12/04/19 03:48 Temperature Pulse Rate 55 L 54 L 51 L Respiratory Rate 22 H Blood Pressure Pulse Oximetry 98 12/04/19 04:00 12/04/19 04:39 12/04/19 05:53 Temperature 36.7 C Pulse Rate 99 51 L 54 L Respiratory Rate 20 20 Blood Pressure 112/49 L Pulse Oximetry 99 97 12/04/19 08:00 12/04/19 09:04 12/04/19 10:00 Temperature 36.6 C Pulse Rate 58 L 60 65 Respiratory Rate 25 H Blood Pressure 117/49 L Pulse Oximetry 97 92 12/04/19 12:00 12/04/19 13:19 12/04/19 13:29 Temperature 35.8 C L Pulse Rate 69 68 68 Respiratory Rate 20 Blood Pressure 113/49 L Pulse Oximetry 91 12/04/19 17:16 12/04/19 18:55 12/04/19 19:23 Temperature 36.4 C L Pulse Rate 68 63 63 Respiratory Rate 20 22 H Blood Pressure 113/40 L Pulse Oximetry 91 93 12/04/19 19:27 12/04/19 21:03 12/04/19 21:30 Temperature Pulse Ra
[2019-12-05] VITALS (9 sets, daily range): BP systolic 106–112; BP diastolic 44–50; PULSE 51–61; RESP 16–22; TEMP 36.2–36.7; O2SAT 87–98
[2019-12-05 01:42] LABS: Glucose Point of Care 228 (65-105)
[2019-12-05] MEDS: METOPROLOL TARTRATE 50 MG TAB PO ×2 (06:13→12:42)
[2019-12-05] MEDS: LEVOTHYROXINE SODIUM 88 MCG TABLET PO (06:13)
[2019-12-05] MEDS: CENTRAL LINE FLUSH 10 ML IV PUSH (06:13)
[2019-12-05 06:19] LABS: Glucose Point of Care 162 (65-105)
[2019-12-05] MEDS: FLUTICASONE PROP 110 MCG INHALER 12 GM (*SP) 1 PUFF INHALATION (07:20)
[2019-12-05] MEDS: ALBUTEROL SULFATE (*SP) AEROSOL 1 PUFF 6 PUFF INHALATION ×3 (07:20→15:37)
[2019-12-05] MEDS: ASCORBIC ACID 500 MG TABLET PO (09:02)
[2019-12-05] MEDS: ATORVASTATIN 20 MG TABLET PO (09:02)
[2019-12-05] MEDS: GABAPENTIN 300 MG CAPSULE PO ×2 (09:02→12:42)
[2019-12-05] MEDS: SERTRALINE HCL 50 MG TABLET PO (09:02)
[2019-12-05] MEDS: MAGNESIUM OXIDE 400 MG TABLET PO (09:02)
[2019-12-05] MEDS: POTASSIUM/PHOSPHORUS/SODIUM 1.5 GM PACKET 1 PACKET PO ×2 (09:02→12:42)
[2019-12-05] MEDS: SIMETHICONE 125 MG CHEW TAB PO ×2 (09:03→12:49)
[2019-12-05] MEDS: PANTOPRAZOLE SODIUM IV 40 MG VIAL IV PUSH (09:03)
--- NOTE | 2019-12-05 10:32 | PM.DS ---
DS: Summary Hospital Course Reason for hospitalization: dyspnea Hospital Course: Admitted with presumed bacteremia pneumonia. SARS-CoV-2 negative. Responded well to azithromycin and ceftriaxone. Right breast cellulitis noted during stay. Received Vanc. U/s negative for abscess. Small amount of pus drained on day of discharge. Status at Discharge Overall status at discharge: patient is progressing back to baseline Time Spent with Patient Time attestation: Total time spent providing and/or coordinating discharge services: Time spent: Greater than 30 minutes Exam Narrative: Exam Narrative: General: Moderately ill-appearing, obese HEENT: Mucous membranes are dry, no oral pharyngeal erythema, no scleral icterus Neck: Short neck, large neck circumference, no jvd Respiratory: CTA with decreased BS at bases. NL effort Cardiovascular: Regular rate, regular rhythm Gastrointestinal: Obese, nontender, normoactive bowel sounds, MILD RUQ AND EPIGASTRIC TENDERNESS Skin: Non jaundice, no pallor, normal temperature, no rashes in skin folds Extremities: No C/E/C Neurological: Alert and oriented, speech is clear, no facial asymmetry Psychiatric: Appropriate mood and affect, pleasant and cooperative. Ox4. Right breast with mild erythema surround about 0.25cm open area with yellow base in upper outer quadrant DS: Data Data Completed and Pending Labs on day of discharge: Labs from last 24 hours 12/05/19 12/04/19 12/04/19 06:08 21:58 20:35 POC Capillary Glucose 162 H 228 H 236 H 12/04/19 12/04/19 16:56 12:00 POC Capillary Glucose 257 H 252 H Discharge Plan Discharge Consulting providers: Rosana Harrington ; Chaya Dutta ; Ronal Duke ; Nika Seth ; Nitin Joy ; Grzegorz Tate ; Jeremiah Hilario ; German Hayes ; Christopher Berrios ; Reilly Zamora ; Leon Mehta ; Liliya Vazquez ; Reva Grady ; Giacomo Garza V. ; Breezy Wray ; Don Palomo Discharging Clinician: Gilson Schultz Patient Disposition: Home Health Service Activity: as tolerated Diet: diabetic Discharge Instructions: Per Care Coordination, pt. will discharge home with [facility] for continued Pt/Ot and wound care. Please have pt.'s RN fax discharge information to . Wound Care Instructions: Change the packing in the right breast incision once daily with 1/4 iodoform gauze. Continue packing changes daily until there is no longer a cavity to pack. Will have you follow-up with your PCP if this continues to heal well without any concerns and would recommend getting your scheduled mammogram. If you have any concerns with wound care or worsening signs of infection, please call the office ([phone]) and follow up with Nika Seth NP as needed. Shower over incision once daily with mild soap and water (after removing packing and prior to placing new packing) - coordinate with dressing changes. May take Tylenol 500 mg by mouth every 6 hours as needed for pain. Finish your entire course of antibiotics. Patient Instructions: Antibiotic Form, Heart Failure (GEN), A-fib (Atrial Fibrillation) (DC), Urinary Tract Infection in Women (DC), COPD (Chronic Obstructive Pulmonary Disease) (DC), Anemia (DC), Pneumonia (DC), BiPAP (GEN), Central Line Removal (DC), Hypertension and Diabetes (DC) Stand Alone Forms: General Discharge Information Follow-up/Referrals: Vince,MD Ricky [Primary Care Provider] - Call for Appointment Discharge Medications: New Spiriva with HandiHaler 18 mcg Capsule, W/Inhalation Device 1 cap inhalation QAM Qty: 30 RF: 0 metoprolol succinate 50 mg tablet extended release 24 hr 150 mg PO HS Qty: 90 RF: 0 sulfamethoxazole-trimethoprim [Bactrim DS] 800-160 mg tablet 1 tablet PO Q12H Qty: 14 RF: 0 Basaglar KwikPen U-100 Insulin 100 unit/mL (3 mL) insulin pen 30 unit SUB-Q HS Qty: 15 RF: 0 (DME) pen needle, diabetic [1st Tier Unifine Pentips] 31 gauge
[2019-12-05] MEDS: ACETAMINOPHEN 500 MG TABLET 1000 MG PO (10:41)
[2019-12-05] MEDS: INSULIN DETEMIR 100 UNITS/ML 16 UNITS SUB-Q (10:54)
[2019-12-05] MEDS: INSULIN ASPART (*BKC) 100 UNITS/ML SUB-Q (12:47)
--- NOTE | 2019-12-05 13:13 | PM.PNGS ---
Progress Note: A&P Assessment and Plan (1) Cellulitis of right breast: Code(s): N61.0 - Mastitis without abscess Status: Acute Assessment and Plan: Right breast cellulitis does seem improved but this has formed a small abscess. There is a small opening on the surface but this will likely close on it's own if this is not opened further, therefore I discussed options with the patient of watching this on antibiotics versus doing a bedside Incision and Drainage prior to discharge with local anesthesia. Description of the procedure, risks, benefits, indications, and expected outcomes were discussed with the patient in detail. The patient is agreeable to proceed with bedside I&D prior to leaving and states she and her son will be able to perform local wound care at home. She will also be followed by Home Health who can watch this wound. Still okay from our standpoint for the patient to be discharged. Would continue the antibiotics on discharge. Change packing daily and wash over the incision with soap and water. (2) Pneumonia: Qualifiers: Pneumonia type: due to unspecified organism Laterality: unspecified laterality Lung location: unspecified part of lung Qualified Code(s): J18.9 - Pneumonia, unspecified organism Code(s): J18.9 - Pneumonia, unspecified organism Status: Acute (3) COPD (chronic obstructive pulmonary disease): Qualifiers: COPD type: unspecified COPD Qualified Code(s): J44.9 - Chronic obstructive pulmonary disease, unspecified Code(s): J44.9 - Chronic obstructive pulmonary disease, unspecified Status: Acute (4) Type 2 diabetes mellitus: Qualifiers: Diabetes mellitus complication detail: with polyneuropathy Diabetes mellitus complication status: with neurologic complications Diabetes mellitus long term care administrator insulin use: without detention use Qualified Code(s): E11.42 - Type 2 diabetes mellitus with diabetic polyneuropathy Code(s): E11.9 - Type 2 diabetes mellitus without complications Status: Acute (5) Anemia: Qualifiers: Anemia type: unspecified type Qualified Code(s): D64.9 - Anemia, unspecified Code(s): D64.9 - Anemia, unspecified Status: Acute Additional Plan Discussed plan of care with Dr. Franklin. Subjective Subjective Date/Time Seen: 12/05/19 12:13 Patient reports: no new complaints Interval history: Patient has no new complaints today. States the area on her right breast is gray tender, no better or worse. No other complaints at this time. Review of Systems Review of Systems: All systems reviewed & are unremarkable except as noted in HPI and below Exam Const: General: comfortable, no acute distress, alert and awake Orientation/consciousness: patient oriented x3 Skin: General skin exam: normal color Other: Induration and slightly improved erythema at the right upper outer breast at about 10 o'clock position. Previous scab overlying this area is now off and there is a small opening. I am able to express some purulent yellow drainage from this opening and there is slight fluctuance noted just medial to this opening. Psych: Mental Status: mental status grossly normal Speech and movement: Normal speech and movement present Affect: normal affect Attitude: cooperative Insight: Good insight present (Psych) Judgement: Good judgement present (Psych) Objective Data Vital Signs Vital Signs: Vital Signs - 24 hr 12/04/19 13:19 12/04/19 13:29 12/04/19 17:16 Temperature 35.8 C L 36.4 C L Pulse Rate 68 68 68 Respiratory Rate 20 20 Blood Pressure 113/49 L 113/40 L Pulse Oximetry 91 91 12/04/19 18:55 12/04/19 19:23 12/04/19 19:27 Temperature Pulse Rate 63 63 65 Respiratory Rate 22 H 22 H Blood Pressure Pulse Oximetry 93 12/04/19 21:03 12/04/19 21:30 12/04/19 22:00 Temperature 36.6 C Pulse Rate 63 120 H 62 Respiratory Rate 22 H 20 Blood Pressure 108/41 L Pulse Oxim
--- NOTE | 2019-12-05 13:20 | PCDIET ---
Nutrition Follow-Up Complete: Nutrition Diagnosis: Involuntary weight loss related to poor appetite prior to admission as evidenced by reported 2-13 pound weight loss. Nutrition Goal: Patient will consume 75% of meals or greater. Goal not met, as patient only consuming an average of 23% of meals since last review; however, patient continues to take Glucerna Shake (220kcal, 10g protein) TID. Diet is soft and bite size, diabetic, which is appropriate. Last recorded weight is 107.3 kg which is increased from last review. Bowel Motility: +BM x 1 on 12/04/19. Labs Reviewed: Glu (162) Meds Noted: Albuterol, Vitamin C, Novolog, Levemir, Protonix, Phos-Nak, Rocephin, Doxycycline, Mag-Ox, Vancomycin Additional Notes: Right lateral chest scab. No pressure ulcers documented. Recommend continuing Glucerna Shake three times daily until appetite improves. Nutrition Monitoring and Evaluation: Follow up every 5 days.
--- NOTE | 2019-12-05 15:38 | PM.PROC ---
Procedure Note - Detailed Date of procedure: 12/05/19 Pre-op diagnosis: Severe sepsis, Pneumonia, Possible UTI Right breast abscess with cellulitis Post-op diagnosis: same Procedure performed: Incision and drainage of right breast abscess Description of procedure: The site of the required I&D at the area of the abscess were identified and patient's consent was obtained. Following this, the area was prepped with iodine and draped in usual sterile fashion. Then local anesthetic was infiltrated directly over the area of swelling and abscess formation. After allowing the local anesthetic to work a direct 1 cm incision was made over the fluctuant area of the abscess and immediate flow of a small amount of purulent drainage was noted. All purulent drainage was expressed from the abscess and the abscess cavity was probed and all loculations broken up. Following this, the area was packed with 1/4 inch iodoform Nu Gauze. The area was then covered with 4x4s and tape. The patient tolerated the procedure well. Anesthesia: local (1% lidocaine) Surgeon: BAILEY Henry Estimated blood loss (mL): 0 Drains: No Packing: Yes Pathology: none sent Complications: No immediate complications Condition: stable Disposition: no change (Bedside procedure in room 317 on the medical floor.) Findings: Small abscess cavity with purulent drainage. I made a small incision to allow this to drain and heal properly. Discussed packing instructions with the patient including daily dressing changes and answered all questions.
[2019-12-05 18:08] LABS: Glucose Point of Care 209 (65-105)
== END 2019-12-05 16:00 | disposition home health service (06) | DRG 720 ==
LOC: ANHICU 11-26 10:04 → ANH3MEDSUR 11-26 15:48 → ANHIMU 12-03 21:05 → ANH3MEDSUR 12-05 10:36 → ANHICU 12-06 09:29 → ANHIMU 12-06 09:29
PROVIDERS: Family Medicine; Internal Medicine; Internal Medicine Critical Care Medicine; Admitting Provider Internal Medicine; PCP Family Medicine; Visit Provider Internal Medicine
DX: A41.9 Sepsis, unspecified organism (principal); R65.21 Severe sepsis with septic shock; J18.9 Pneumonia, unspecified organism; Z20.828 Contact with and (suspected) exposure to other viral communicable diseases; J96.21 Acute and chronic respiratory failure with hypoxia; J96.22 Acute and chronic respiratory failure with hypercapnia; I13.0 Hypertensive heart and chronic kidney disease with heart failure and stage 1 through stage 4 chronic kidney disease, or unspecified chronic kidney disease; I50.32 Chronic diastolic (congestive) heart failure; N18.9 Chronic kidney disease, unspecified; E11.22 Type 2 diabetes mellitus with diabetic chronic kidney disease; I48.0 Paroxysmal atrial fibrillation; N17.9 Acute kidney failure, unspecified; J44.0 Chronic obstructive pulmonary disease with (acute) lower respiratory infection; D64.9 Anemia, unspecified; N61.0 Mastitis without abscess; K29.70 Gastritis, unspecified, without bleeding; K56.7 Ileus, unspecified; G47.33 Obstructive sleep apnea (adult) (pediatric); E03.9 Hypothyroidism, unspecified; K76.0 Fatty (change of) liver, not elsewhere classified; E11.42 Type 2 diabetes mellitus with diabetic polyneuropathy; E78.5 Hyperlipidemia, unspecified; E66.9 Obesity, unspecified; Z68.41 Body mass index [BMI] 40.0-44.9, adult; Z99.81 Dependence on supplemental oxygen; Z90.49 Acquired absence of other specified parts of digestive tract; Z87.891 Personal history of nicotine dependence
CPT/HCPCS: 36415; 36430; 36600; 71045; 74018; 74176; 76642; 76705; 80048; 80053; 80074; 80076; 81001; 82248; 82274; 82375; 82728; 82805; 83010; 83036; 83050; 83605; 83615; 83735; 84100; 84439; 84484; 85014; 85018; 85025; 85027; 85046; 85055; 85380; 86140; 86850; 86900; 86901; 86923; 87081; 87086; 87449; 87635; 87880; 87899; 93005; 93306; 94002; 94003; 94640; 94660; 97110; 97116; 97162; 97165; 97530; 97535; A9270; C1751; C9113; J0696; J1265; J1650; J1815; J1940; J2405; J2550; J2997; J3370; J3475; J7030; J7050; P9016; P9047; U0003

== ENCOUNTER 2019-12-28 09:43 | Emergency (ER) | payer OTHER, SELFPAY ==
[2019-12-28 09:45] VITALS: BP 195/86; PULSE 62; RESP 24; TEMP 37.1; O2SAT 95
--- NOTE | 2019-12-28 10:22 | ED.HA ---
HPI - Headache General Chief Complaint: Headache Stated Complaint: High Bp History of Present Illness HPI Narrative: 59-year-old with a history of recurring headaches. She has similar headaches approximately 15 days out of each month. She rates her current pain as 6/10. It is bitemporal and constant. She comes in with concerns about her headache associated with a bllood pressure was 180/100. She denies nausea, photophobia, visual disturbances, numbness or weakness. Related Data Home Medications Medication Instructions Recorded Confirmed Acetaminophen Extra Strength 1,000 mg PO TID 11/23/19 12/28/19 Flovent HFA 1 puff INHALATION BID 11/23/19 12/28/19 ascorbate calcium (vitamin C) 500 mg PO DAILY 11/23/19 12/28/19 aspirin [Adult Low Dose Aspirin] 81 mg PO DAILY 11/23/19 12/28/19 atorvastatin 20 mg PO DAILY 11/23/19 12/28/19 famotidine [Acid Foster Winder 20 mg PO BID 11/23/19 12/28/19 (famotidine)] gabapentin [Neurontin] 300 mg PO TID 11/23/19 12/28/19 ipratropium-albuterol 3 ml INHALATION Q4H PRN 11/23/19 12/28/19 levothyroxine [Synthroid] 88 mcg PO DAILY 11/23/19 12/28/19 loperamide [Imodium A-D] 2 mg PO Q4H PRN 11/23/19 12/28/19 magnesium 400 mg PO DAILY 11/23/19 12/28/19 metformin [Glucophage XR] 500 mg PO BID 11/23/19 12/28/19 sertraline 50 mg PO DAILY 11/23/19 12/28/19 simethicone [Gas-X Extra Strength] 125 mg PO TID 11/23/19 12/28/19 Allergies Allergy/AdvReac Type Severity Reaction Status Date / Time norepinephrine Allergy Intermediate Rash Verified 01/17/15 14:49 Review of Systems Constitutional: Constitutional: Denies chills, Denies fever(s) and Denies weakness Eyes: Eyes: Reports no additional eye complaints ENT: Denies sore throat Cardiovascular: Cardiovascular: Denies chest pain Respiratory: Respiratory: Denies cough and Denies dyspnea Gastrointestinal: Gastrointestinal: Denies abdominal pain, Denies nausea and Denies vomiting Integumentary/Breasts: Skin/Breast: Reports rash Neurologic: Denies focal weakness and Denies numbness [facility] Social History Social History Smoking packs per day: 1 Smoking cigarettes per day: 20.0 Years smoked: 25 Smoking pack-years: 25.00 Smoking status: Former smoker Tobacco type: cigarettes Smoking end date: 07/25/99 Alcohol intake: former Substance use: never Additional living arrangements comments: She lives with her only child. He works outside the house. 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 She is now on disability. Gender identity (if verbalized by the patient): Female Spiritual care concerns: No Agree to blood products: Yes Exam Const: Orientation/consciousness: patient oriented x3 Other: appears uncomfortable. HENMT: Head: normal to inspection Eyes: Conjunctivae: conjunctivae normal Pupils: Equal, round and reactive pupils present Neck: Neck: normal visual inspection and no lymphadenopathy Other: neck is supple. She is tender over the cervical paraspinal and trapezius muscles. Resp: Effort & Inspection: normal respiratory effort Auscultation: clear to auscultation bilaterally Cardio: Rate: regular rate Rhythm: regular rhythm Heart sounds: no murmurs GI: Inspection: normal to inspection GI Palp: No abdominal tenderness Neuro: General: patient oriented x3, moves all extremities, no meningeal signs, no focal motor deficits and CN's II-XI intact bilaterally Cranial nerves: Yes Nystagmus not present Speech: normal speech Other: uses walker Psych: Mental Status: mental status grossly normal Course Course Emergency Course: Treated with clonidine 0.1 mg p.o., diphenhydramine and Tylenool. Headache pain #3-4/10, much better, with BP of 169/87. Will d.c. home, f/.u with pcp to reevaluate blood pressure. Vital Signs Vital signs: Vital Signs Temperature 37.1 C 12/28/19 09:45 Puls
--- NOTE | 2019-12-28 10:34 | PC.NURSE ---
report to arias osorio
[2019-12-28] MEDS: CLONIDINE HCL 0.1 MG TABLET PO (11:10)
[2019-12-28] MEDS: ACETAMINOPHEN 325 MG TABLET 650 MG PO (11:10)
--- NOTE | 2019-12-28 11:30 | PC.NURSE ---
CLONIDINE, BENADRYL, AND TYLENOL GIVEN PER PREVIOUS SHIFT
[2019-12-28 11:58] VITALS: BP 169/87
[2019-12-28 12:17] VITALS: BP 152/85
== END 2019-12-28 12:19 | disposition home or self-care (01) ==
PROVIDERS: Emergency Provider Family Medicine; PCP Family Medicine
DX: G44.229 Chronic tension-type headache, not intractable (principal); I10 Essential (primary) hypertension
CPT/HCPCS: 99282; 99283; A9270

== ENCOUNTER 2020-06-18 15:11 | Outpatient (CLI) | payer OTHER, SELFPAY ==
[2020-06-20 17:04] LABS: SARS-CoV-2 RNA PCR Negative
== END 2020-06-18 15:12 | disposition home or self-care (01) ==
LOC: CHSLAB 15:13
PROVIDERS: PCP Family Medicine; Visit Provider Family Medicine
DX: Z20.828 Contact with and (suspected) exposure to other viral communicable diseases (principal)
CPT/HCPCS: 87635; C9803; U0003

== ENCOUNTER 2020-07-08 13:46 | Outpatient (CLI) | payer OTHER, SELFPAY ==
--- NOTE | ~2020-07-08 | MM_ITS ---
EXAMINATION: MM screening ronnie BI w sal HISTORY: Screening mammogram TECHNIQUE: Craniocaudal and mediolateral oblique 3-D tomosynthesis images were obtained and synthetic 2-D images were generated. CAD analysis was submitted and interpreted. COMPARISON: 10/12/2018 BREAST PARENCHYMAL COMPOSITION: The breasts are almost entirely fatty. FINDINGS: There is no evidence of suspicious mass, calcification, or architectural distortion to sugg est malignancy in either breast. There has been no suspicious interval change. IMPRESSION: 1. No mammographic evidence of malignancy. 2. Recommend routine screening mammography in one year. BI-RADS Category 1: Negative Reviewed, dictated and finalized at location A. [employer]
== END 2020-07-08 13:47 | disposition home or self-care (01) ==
LOC: CHSIMG 13:47
PROVIDERS: PCP Family Medicine; Visit Provider Family Medicine
DX: Z12.31 Encounter for screening mammogram for malignant neoplasm of breast (principal)
CPT/HCPCS: 77063; 77067

== ENCOUNTER 2020-08-15 14:25 | Outpatient (CLI) | payer OTHER, SELFPAY ==
[2020-08-15 15:05] LABS: SARS-CoV-2 Ag Negative (Negative)
== END 2020-08-15 14:26 | disposition home or self-care (01) ==
LOC: CHSLAB 14:30
PROVIDERS: PCP Family Medicine; Visit Provider Family Medicine
DX: R05 Cough (principal); Z20.822 Contact with and (suspected) exposure to COVID-19
CPT/HCPCS: 87426; C9803

== ENCOUNTER 2020-09-22 14:20 | Emergency (ER) | payer OTHER, SELFPAY ==
--- NOTE | ~2020-09-22 | CT_ITS ---
EXAMINATION: CT cervical spine wo con EXAM DATE: 09/22/2020 15:22 INDICATION: fall ground level fall today, everything hurts . TECHNIQUE: Spiral CT of the cervical spine was performed without contrast. Axial images were reviewe d. Coronal and sagittal reformatted images were also reviewed. The dose-length product (DLP) for thi s examination was 580.63 mGy-cm. The exposure was tailored according to patient size (auto mA exposu re control), and iterative reconstruction (ASIR) was used as additional dose reduction technique. ere is no prior study for comparison. FINDINGS: There is ossification posterior to the C4-6 vertebral bodies, consistent with ossification of the posterior longitudinal ligament. There is no evidence of acute cervical fracture. The odontoi d process is intact. Pre-dens space is normal. Prevertebral soft tissue is normal. There are no so ft tissue abnormalities identified. There is no disc space widening or traumatic vertebral body subl uxation suspected. Mild to moderate disc disease C5-C7. Mild to moderate cervical arthropathy. Some nonspecific left upper lobe groundglass opacity, could be atelectasis, edema or infection. A det geovanny level by level evaluation of spondylosis can be added as addendum if requested. IMPRESSION: 1. No acute cervical fracture. 2. Ossification posterior longitudinal ligament. 3. Nonspecific left upper lobe groundglass opacities. Reviewed, dictated and finalized at location A. TRIC TRAIN DRIVER
--- NOTE | ~2020-09-22 | CT_ITS ---
EXAMINATION: CT thoracic lumbar wo con EXAM DATE: 09/22/2020 15:32 INDICATION: Fall pain mid-low back and pelvic pain s/p fall. TECHNIQUE: Spiral CT thoracolumbar spine was performed without contrast. Axial, coronal and sagittal images of the thoracic spine were reviewed. Axial, coronal and sagittal images of the lumbar spine we re reviewed. The dose-length product (DLP) for this examination was 1968.14 mGy-cm. The exposure was tailored according to patient size (auto mA exposure control), and iterative reconstruction (ASIR) w as used as additional dose reduction technique. There is no prior study for comparison. FINDINGS: There is cardiomegaly. There is scattered bilateral linear and groundglass airspace disease , could be atelectasis, with superimposed edema or infection. THORACIC SPINE: The vertebral bodies are aligned in the AP dimension. There are no acute fractures id entified. There is mild to moderate lower thoracic disc disease. Vertebral body heights are well-main tained. Paraspinal soft tissue is unremarkable. LUMBAR SPINE: Sacroiliac joints are unremarkable. There is no evidence of acute lumbar fracture. Th ere is no disc space widening or traumatic vertebral body subluxation suspected. Paraspinal soft tis roberto is unremarkable. Moderate disc bulge at L3-4 and L4-5 with moderate central canal stenosis at th francis 2 levels. No spondylolysis. Mild loss of lumbar disc heights. The vertebral body heights are well -maintained. A detailed level by level evaluation of spondylosis can be added as addendum if requeste d. IMPRESSION: 1. No acute thoracolumbar findings. 2. Cardiomegaly. Scattered bilateral atelectasis with probability of superimposed edema or infection . 3. Spondylosis. Reviewed, dictated and finalized at location A. OR BRAND MANAGER IMPRESSION: 1. No acute thoracolumbar findings. 2. Cardiomegaly. Scattered bilateral atelectasis with probability of superimpo sed edema or infection. 3. Spondylosis.
--- NOTE | ~2020-09-22 | CT_ITS ---
EXAMINATION: CT brain wo con DATE: 09/22/2020 15:24 INDICATION: Head injury. TECHNIQUE: Computed tomography (CT) of the head was performed without intravenous contrast. The mA wa s adjusted according to patient size. Iterative reconstruction technique was employed. The dose-lengt h product was 832.33 mGy-cm. COMPARISON: None FINDINGS: There is no intracranial hemorrhage, acute infarction, or abnormal intracranial mass lesion . The ventricles are normal in size. The orbits are normal. There is mild mucosal thickening in the p aranasal sinuses. The mastoid air cells are normal. IMPRESSION: 1. Normal brain. Reviewed, dictated and finalized at location A. ER SETTER IMPRESSION: 1. Normal brain.
--- NOTE | ~2020-09-22 | XR_ITS ---
EXAMINATION: XR pelvis 1-2V DATE: 09/22/2020 15:24 INDICATION: Ground-level fall with pelvic pain. TECHNIQUE: An anteroposterior view of the pelvis was obtained. COMPARISON: 11/29/2019 FINDINGS: Alignment is normal. No fracture. Mild bilateral sacroiliac and minimal bilateral hip osteoarthritis. IMPRESSION: 1. No acute osseous abnormality. Reviewed, dictated and finalized at location B. BINDER
[2020-09-22 14:20] VITALS: BP 172/90; PULSE 57; RESP 20; TEMP 36.6; O2SAT 97
--- NOTE | 2020-09-22 14:45 | ED.FALL ---
HPI - Fall General Chief Complaint: Fall Stated Complaint: fell at home hit head and pain in hip Time Seen by Provider: 09/22/20 14:40 Source: patient Mode of arrival: ambulatory Limitations: no limitations History of Present Illness HPI Narrative: Patient had a ground level fall at home. She comes in complaining of left occiput pain, neck and back pain. She states she hurts to the point she cannot move well. complaint: fall Onset (ago): minute(s) Fall from: standing Place fall occurred: home Loss of consciousness: none Related Data Home Medications Medication Instructions Recorded Confirmed Acetaminophen Extra Strength 1,000 mg PO TID 11/23/19 09/22/20 Flovent HFA 1 puff INHALATION BID 11/23/19 09/22/20 ascorbate calcium (vitamin C) 500 mg PO DAILY 11/23/19 09/22/20 aspirin [Adult Low Dose Aspirin] 81 mg PO DAILY 11/23/19 09/22/20 atorvastatin 20 mg PO DAILY 11/23/19 09/22/20 famotidine [Acid Bilingual Account Manager 20 mg PO BID 11/23/19 09/22/20 (famotidine)] gabapentin [Neurontin] 300 mg PO TID 11/23/19 09/22/20 ipratropium-albuterol 3 ml INHALATION Q4H PRN 11/23/19 09/22/20 levothyroxine [Synthroid] 88 mcg PO DAILY 11/23/19 09/22/20 loperamide [Imodium A-D] 2 mg PO Q4H PRN 11/23/19 09/22/20 magnesium 400 mg PO DAILY 11/23/19 09/22/20 metformin [Glucophage XR] 500 mg PO BID 11/23/19 09/22/20 sertraline 50 mg PO DAILY 11/23/19 09/22/20 simethicone [Gas-X Extra Strength] 125 mg PO TID 11/23/19 09/22/20 Allergies Allergy/AdvReac Type Severity Reaction Status Date / Time norepinephrine Allergy Intermediate Rash Verified 01/17/15 14:49 Review of Systems Constitutional: Constitutional: Reports no additional constitutional complaints Eyes: Eyes: Reports no additional eye complaints ENT: Reports system reviewed and no additional complaints, except as documented Cardiovascular: Cardiovascular: Reports no additional cardiovascular complaints Respiratory: Respiratory: Reports no additional respiratory complaints Gastrointestinal: Gastrointestinal: Reports no additional gastrointestinal complaints Genitourinary: Genitourinary: Reports no additional female genitourinary complaints Musculoskeletal: Musculoskeletal: Reports no additional musculoskeletal complaints Integumentary/Breasts: Skin/Breast: Reports system reviewed and no additional complaints, except as docu Neurologic: Reports system reviewed and no additional complaints, except as documented Psychiatric: Psychiatric: Reports no additional psychiatric complaints Endocrine: Endocrine: Reports no additional endocrine complaints Hematologic/Lymphatic: Hematologic/Lymphatic: Reports no additional hematologic/lymphatic complaints Allergic/Immunologic: Allergic/Immunologic: Reports no additional allergic/immunologic complaints [facility] Past Medical History Medical History (Updated 09/22/20 @ 14:51 by Raymundo Infante MD) 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 2014 Chronic kidney disease Chronic respiratory failure with hypoxia, on home O2 therapy COPD (chronic obstructive pulmonary disease) Diabetic peripheral neuropathy Diastolic CHF Dyslipidemia HSV infection Hypertension Hypothyroidism Paroxysmal atrial fibrillation Sepsis with critical illness myopathy and septic shock December 2014 Type 2 diabetes mellitus Urolithiasis Surgical History Surgical History History of History of cholecystectomy History of ear surgery History of tonsillectomy History of tracheostomy Family History Family History Father Cerebrovascular accident Hypertension Heart attack Mother Goiter Sibling Scarlet fever Skin cancer Parkinson disease Epilepsy Social History Social History Smoking packs per day: 1 Smoking cigarettes per day: 20.0 Years smoked: 25 Smoking pack-years: 25.00 Smoking status: Former smoker Toba
[2020-09-22] MEDS: KETOROLAC (*BKC) 60 MG/2 ML VIAL IM (16:01)
[2020-09-22 16:17] VITALS: BP 164/89; O2SAT 100
== END 2020-09-22 16:29 | disposition home or self-care (01) ==
PROVIDERS: Emergency Provider Emergency Medicine; PCP Family Medicine
DX: M54.2 Cervicalgia (principal); M54.9 Dorsalgia, unspecified; W18.30XA Fall on same level, unspecified, initial encounter; Z87.891 Personal history of nicotine dependence
CPT/HCPCS: 70450; 72125; 72128; 72131; 72170; 96372; 99283; 99284; J1885; L0150

== ENCOUNTER 2020-10-09 15:37 | Outpatient (RCR) | payer OTHER, SELFPAY ==
--- NOTE | 2020-10-10 12:36 | PTOPEVAL ---
Thank you for referring Court Ybarra to [facility].? The patient is scheduled to be seen for therapy? ____x/week for ___ weeks. Please review, sign, date and return this plan of care ROLAND. I agree with and certify that the following plan of care is medically necessary. Referring Physician Date Admitting Provider: Attending Provider: Ricky Clarke, MD Referring Provider: *PT Outpatient Evaluation Start: 10/09/20 15:40 Freq: Status: Active Protocol: Document 10/09/20 15:40 ACR (Rec: 10/09/20 16:57 ACR [id number]) Therapy Assessment Status Assessment Status Assessment Status Evaluation Outpatient Past Medical History Neurological History Hx Migraine Yes Cardiovascular History Hx Hypercholesterolemia Yes Hx Hypertension Yes Respiratory History Hx Bronchitis Yes Hx Chronic Obstructive Pulmonary Disease Yes (COPD) Hx Pneumonia Yes Hx Pulmonary Embolism Yes Hx Sleep Apnea Yes Hx Other Respiratory Disorders Yes: HAS HAD A TRACH IN PAST Gastrointestinal History Hx Cholecystectomy Yes Hx Gastroesophageal Reflux Disease Yes Hx Irritable Bowel Yes Hx Other Gastrointestinal Disorders Yes: CHRONIC DIARRHEA Genitourinary History Hx Kidney Stones Yes Hx Urinary Tract Infection Yes Musculoskeletal History Hx Arthritis Yes Hx Back Pain Yes Hx Fibromyalgia Yes Hematological History Hx Hematological Disorders No Significant History Endocrine History Hx Diabetes Yes: Type 2 Hx Hypothyroidism Yes Integumentary History Hx Skin Disorders No Significant History Reproductive History Hx Post Menopausal Yes Psychosocial History Hx Anxiety Yes Hx Depression Yes Pain History Has Past Pain Affected Your Daily Life Yes History of Long-Term Prescription Pain Yes Medication Use (Opiates) Other History Hx Other Medical Conditions Yes: MORBID OBESITY Evaluation Information Problem Diagnosis imbalance Onset 09/18/20 Subjective Information Patient states that she had a Query Text:As Reported By Patient/ fall three weeks ago due to Family her diabetic shoes. She went to the ER and had CT scans and X-rays done which were negative. Patient states she has had 2 falls since july that she had to have some help . She states that her knees
--- NOTE | 2020-11-13 16:01 | PTOPEVAL ---
Thank you for referring Court Ybarra to [facility].? The patient is scheduled to be seen for therapy? ____x/week for ___ weeks. Please review, sign, date and return this plan of care ROLAND. I agree with and certify that the following plan of care is medically necessary. Referring Physician Date Admitting Provider: Attending Provider: Ricky Clarke, MD Referring Provider: *PT Outpatient Evaluation Start: 10/09/20 15:40 Freq: Status: Active Protocol: Document 11/13/20 15:09 ACR (Rec: 11/13/20 15:59 ACR [id number]) Therapy Assessment Status Assessment Status Assessment Status Progress Outpatient Past Medical History Neurological History Hx Migraine Yes Cardiovascular History Hx Hypercholesterolemia Yes Hx Hypertension Yes Respiratory History Hx Bronchitis Yes Hx Chronic Obstructive Pulmonary Disease Yes (COPD) Hx Pneumonia Yes Hx Pulmonary Embolism Yes Hx Sleep Apnea Yes Hx Other Respiratory Disorders Yes: HAS HAD A TRACH IN PAST Gastrointestinal History Hx Cholecystectomy Yes Hx Gastroesophageal Reflux Disease Yes Hx Irritable Bowel Yes Hx Other Gastrointestinal Disorders Yes: CHRONIC DIARRHEA Genitourinary History Hx Kidney Stones Yes Hx Urinary Tract Infection Yes Musculoskeletal History Hx Arthritis Yes Hx Back Pain Yes Hx Fibromyalgia Yes Hematological History Hx Hematological Disorders No Significant History Endocrine History Hx Diabetes Yes: Type 2 Hx Hypothyroidism Yes Integumentary History Hx Skin Disorders No Significant History Reproductive History Hx Post Menopausal Yes Psychosocial History Hx Anxiety Yes Hx Depression Yes Pain History Has Past Pain Affected Your Daily Life Yes History of Long-Term Prescription Pain Yes Medication Use (Opiates) Other History Hx Other Medical Conditions Yes: MORBID OBESITY Evaluation Information Problem Diagnosis imbalance Onset 09/18/20 Subjective Information Patient states that since Query Text:As Reported By Patient/ beginning therapy she thinks Family that she can walk better and is a little stronger. She continues to have bad balance and and continues to not feel safe being alone because she falls easily. She states it is easier getting out of a chair
--- NOTE | 2021-01-01 08:22 | PCPTNOTE ---
Patient is a 60 year old female that participated in 10 visits for imbalance. The patient had a fall and stated she needed to rest and would get a new order when she was ready to return to therapy. Please refer to recent treatment note for discharge status. Thank you, SAMAN IbanezT
== END 2020-11-13 16:00 | disposition home or self-care (01) ==
LOC: CHSPT 15:37
PROVIDERS: PCP Family Medicine; Visit Provider Family Medicine
DX: R26.89 Other abnormalities of gait and mobility (principal)
CPT/HCPCS: 97110; 97112; 97163; 97530

== ENCOUNTER 2020-11-17 16:22 | Emergency (ER) | payer OTHER, SELFPAY ==
--- NOTE | ~2020-11-17 | XR_ITS ---
EXAMINATION: XR pelvis 1-2V DATE: 11/17/2020 17:22 INDICATION: Pelvic pain post fall TECHNIQUE: Anteroposterior views of the pelvis were obtained with the legs in neutral and frog-leg la teral positions. COMPARISON: 09/22/2020 FINDINGS: Alignment is normal. No fracture. Sacral arches are intact. Mild bilateral hip and sacroiliac osteoar thritis. Atherosclerotic calcification along the bilateral common iliac arteries. IMPRESSION: 1. Mild bilateral hip and sacroiliac osteoarthritis. No acute osseous abnormality. Reviewed, dictated and finalized at location A. IMPRESSION: 1. Mild bilateral hip and sacroiliac osteoarthritis. No acute osseous abnormali ty.
--- NOTE | ~2020-11-17 | CT_ITS ---
EXAMINATION: CT brain wo con DATE: 11/17/2020 17:15 INDICATION: Head injury with left forehead hematoma post fall. TECHNIQUE: Computed tomography (CT) of the head was performed without intravenous contrast. Sagittal and coronal reconstructions were performed. The mA was adjusted according to patient size. Iterative reconstruction technique was employed. The dose-length product was 605.33 mGy-cm. COMPARISON: head CT dated 09/22/2020 FINDINGS: Small anterior left frontal scalp hematoma. No fracture. No acute intracranial hemorrhage, acute infa rction or abnormal extra axial fluid collection. Ventricles are normal and symmetric. No mass/mass ef fect. The orbits, paranasal sinuses and mastoid air cells are normal. IMPRESSION: 1. Normal brain. No fracture or acute intracranial process. Reviewed, dictated and finalized at location A.
--- NOTE | ~2020-11-17 | XR_ITS ---
EXAMINATION: XR hand LT 2V EXAM DATE: 11/17/2020 17:21 INDICATION: Left hand pain post fall . TECHNIQUE: Left hand frontal, lateral and oblique projections obtained and reviewed. There is no kristal or study for comparison. FINDINGS: Left metacarpal bones are unremarkable. There are no acute fractures or dislocations ident ified. There is no subcutaneous gas. The soft tissue is unremarkable. There are no radiopaque for eign bodies. IMPRESSION: No acute osseous findings. Reviewed, dictated and finalized at location A. IMPRESSION: No acute osseous findings.
[2020-11-17 16:34] VITALS: BP 146/88; PULSE 64; RESP 18; TEMP 37; O2SAT 96
--- NOTE | 2020-11-17 16:43 | ED.FALL ---
HPI - Fall General Chief Complaint: Fall Stated Complaint: AMB Time Seen by Provider: 11/17/20 16:40 Source: patient and EMS Mode of arrival: ambulatory Limitations: no limitations History of Present Illness HPI Narrative: Patient come in after a ground level fall at home. She complains of pain in the left thigh, and pain in the left wrist, where she has a bruise. She also has a scrape on her left forehead where she hit her forehead. She appears to have no difficulty moving her neck without pain. No other injury. MD complaint: fall Onset (ago): minute(s) Fall from: standing Loss of consciousness: none Prolonged down time: no Context: tripped/slipped Associated symptoms (after fall): other (headache, left wrist pain, left hip pain) Related Data Home Medications Medication Instructions Recorded Confirmed Acetaminophen Extra Strength 1,000 mg PO TID 11/23/19 11/17/20 Flovent HFA 1 puff INHALATION BID 11/23/19 11/17/20 ascorbate calcium (vitamin C) 500 mg PO DAILY 11/23/19 11/17/20 aspirin [Adult Low Dose Aspirin] 81 mg PO DAILY 11/23/19 11/17/20 atorvastatin 20 mg PO DAILY 11/23/19 11/17/20 famotidine [Acid Bench Molder 20 mg PO BID 11/23/19 11/17/20 (famotidine)] gabapentin [Neurontin] 300 mg PO TID 11/23/19 11/17/20 ipratropium-albuterol 3 ml INHALATION Q4H PRN 11/23/19 11/17/20 levothyroxine [Synthroid] 88 mcg PO DAILY 11/23/19 11/17/20 loperamide [Imodium A-D] 2 mg PO Q4H PRN 11/23/19 11/17/20 magnesium 400 mg PO DAILY 11/23/19 11/17/20 metformin [Glucophage XR] 500 mg PO BID 11/23/19 11/17/20 sertraline 50 mg PO DAILY 11/23/19 11/17/20 simethicone [Gas-X Extra Strength] 125 mg PO TID 11/23/19 11/17/20 Allergies Allergy/AdvReac Type Severity Reaction Status Date / Time norepinephrine Allergy Intermediate Rash Verified 01/17/15 14:49 Review of Systems Constitutional: Constitutional: Reports no additional constitutional complaints Eyes: Eyes: Reports no additional eye complaints ENT: Reports system reviewed and no additional complaints, except as documented Cardiovascular: Cardiovascular: Reports no additional cardiovascular complaints Respiratory: Respiratory: Reports no additional respiratory complaints Gastrointestinal: Gastrointestinal: Reports no additional gastrointestinal complaints Genitourinary: Genitourinary: Reports no additional female genitourinary complaints Musculoskeletal: Musculoskeletal: Reports no additional musculoskeletal complaints Integumentary/Breasts: Skin/Breast: Reports system reviewed and no additional complaints, except as docu Neurologic: Reports system reviewed and no additional complaints, except as documented Psychiatric: Psychiatric: Reports no additional psychiatric complaints Endocrine: Endocrine: Reports no additional endocrine complaints Hematologic/Lymphatic: Hematologic/Lymphatic: Reports no additional hematologic/lymphatic complaints Allergic/Immunologic: Allergic/Immunologic: Reports no additional allergic/immunologic complaints PMFSH Past Medical History Medical History 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 2014 Chronic kidney disease Chronic respiratory failure with hypoxia, on home O2 therapy COPD (chronic obstructive pulmonary disease) Diabetic peripheral neuropathy Diastolic CHF Dyslipidemia HSV infection Hypertension Hypothyroidism Paroxysmal atrial fibrillation Sepsis with critical illness myopathy and septic shock December 2014 Type 2 diabetes mellitus Urolithiasis Surgical History Surgical History History of History of cholecystectomy History of ear surgery History of tonsillectomy History of tracheostomy Family History Family History Father Cerebrovascular accident Hypertension Heart attack Mother Goiter Sibling Scarlet fever Skin cancer Parkinson disease Epilepsy Social His
[2020-11-17] MEDS: KETOROLAC (*BKC) 60 MG/2 ML VIAL IM (17:15)
--- NOTE | 2020-11-17 17:25 | PC.NURSE ---
RN REQUESTED ER HOLD ROOM FROM CHON OLIVER RN. ROOM 206 PROVIDED. REGISTRATION NOTIFIED.
[2020-11-17 17:50] VITALS: BP 160/70; PULSE 70; RESP 18; TEMP 36.6; O2SAT 94
== END 2020-11-17 17:51 | disposition home or self-care (01) ==
PROVIDERS: Emergency Provider Emergency Medicine
DX: S89.92XA Unspecified injury of left lower leg, initial encounter (principal); W18.30XA Fall on same level, unspecified, initial encounter
CPT/HCPCS: 70450; 72170; 73120; 96372; 99283; 99284; J1885

== ENCOUNTER 2023-07-27 11:46 | Outpatient (CLI) | payer OTHER, SELFPAY ==
--- NOTE | ~2023-07-27 | MM_ITS ---
EXAMINATION: MM screening ronnie BI w sal HISTORY: Screening mammogram, family history of breast cancer in her sister. TECHNIQUE: Craniocaudal and mediolateral oblique 3-D tomosynthesis images were obtained and synthetic 2-D images were generated. CAD analysis was submitted and interpreted. COMPARISON: 07/08/2020, 10/12/2018 BREAST PARENCHYMAL COMPOSITION: The breasts are almost entirely fatty. FINDINGS: No suspicious mass, calcification, or architectural distortion are identified in either jannette ast to suggest malignancy. There has been no suspicious interval change. IMPRESSION: 1. No mammographic evidence of malignancy. 2. Recommend routine screening mammography in one year. BI-RADS Category 1: Negative Reviewed, dictated and finalized at location A. R GLASS WORKER
== END 2023-07-27 11:47 | disposition home or self-care (01) ==
LOC: CHSIMG 11:48
PROVIDERS: PCP Family Medicine; Visit Provider Family Medicine
DX: Z12.31 Encounter for screening mammogram for malignant neoplasm of breast (principal)
CPT/HCPCS: 77063; 77067

== ENCOUNTER 2023-07-28 13:24 | Outpatient (CLI) | payer OTHER, SELFPAY ==
[2023-07-28 14:47] LABS: Albumin Level 3.9 g/dL (3.4-5.0); Anion Gap 5 mmol/L (8-16); Blood Urea Nitrogen 27 mg/dL (7-18); Calcium 9.7 mg/dL (8.5-10.1); Carbon Dioxide 35 mmol/L (21-32); Chloride 103 mmol/L (98-108); Estimated Glomerular Filt Rate 57; Glucose 118 mg/dL (70-99); Osmolality Calculated 302 mOsm/kg (285-295); Phosphorus 4.5 mg/dL (2.6-4.7); Sodium 143 mmol/L (136-145)
== END 2023-07-28 13:25 | disposition home or self-care (01) ==
LOC: CHSLAB 13:27
PROVIDERS: PCP Family Medicine; Visit Provider Family Medicine
DX: N28.9 Disorder of kidney and ureter, unspecified (principal)
CPT/HCPCS: 36415; 80069

== ENCOUNTER 2023-11-25 15:52 | Outpatient (CLI) | payer OTHER, SELFPAY ==
[2023-11-25 16:36] LABS: Alanine Aminotransferase 27 U/L (14-59); Albumin Level 3.5 g/dL (3.4-5.0); Alkaline Phosphatase 100 U/L (46-116); Anion Gap 7 mmol/L (4-12); Aspartate Amino Transferase 19 U/L (15-37); Bilirubin,Total 0.4 mg/dL (0.00-1.00); Blood Urea Nitrogen 21 mg/dL (7-18); Carbon Dioxide 36 mmol/L (21-32); Chloride 102 mmol/L (98-108); Estimated Glomerular Filt Rate 57; Glucose 167 mg/dL (70-99); Osmolality Calculated 307 mOsm/kg (285-295); Sodium 145 mmol/L (136-145); Total Protein 6.9 g/dL (6.4-8.2)
[2023-11-25 16:40] LABS: Potassium 4.3 mmol/L (3.5-5.1)
== END 2023-11-25 15:53 | disposition home or self-care (01) ==
LOC: CHSLAB 15:54
PROVIDERS: PCP Family Medicine; Visit Provider Family Medicine
DX: E87.5 Hyperkalemia (principal)
CPT/HCPCS: 36415; 80053

== ENCOUNTER 2024-04-28 06:48 | Outpatient (CLI) | payer OTHER, SELFPAY ==
--- NOTE | ~2024-04-28 | MR_ITS ---
EXAMINATION: MR brain/brain stem wo con DATE: 04/28/2024 07:55 INDICATION: Ataxia, headache, dizziness and blurred vision TECHNIQUE: Magnetic resonance imaging (MRI) of the brain and brainstem was performed without intraven ous contrast. Sequences included sagittal and axial T1-weighted SE, axial diffusion-weighted FS SE, a xial T2*-weighted GRE, axial T2-weighted FLAIR, and axial T2-weighted FSE. Apparent diffusion coeffic ient (ADC) maps were created. COMPARISON: Head CT dated 11/17/2020 FINDINGS: There are no areas of restricted diffusion to suggest acute infarction. No intracranial hemorrhage or abnormal intracranial mass lesion. There are a couple small foci of nonspecific increased T2-weighte d signal intensity in the periventricular cerebral white matter which is within normal limits for age and likely sequela of chronic small vessel ischemic disease.. There are no intraparenchymal signal a bnormalities seen on the other pulse sequences. The ventricles are symmetric and normal in size. Ther e are no abnormal extra-axial fluid collections. Flow voids are seen in the cerebral arteries on the T2-weighted sequences consistent with their expected patency. There is mucosal thickening in the bila teral ethmoid sinuses. Left mastoid effusion. Visualized orbits and soft tissues are unremarkable. IMPRESSION: 1. Normal aging brain. 2. Left mastoid effusion. Reviewed, dictated and finalized at location A.
== END 2024-04-28 06:49 | disposition home or self-care (01) ==
LOC: CHSIMG 06:50
PROVIDERS: PCP Family Medicine; Visit Provider Family Medicine
DX: R27.0 Ataxia, unspecified (principal); H74.8X2 Other specified disorders of left middle ear and mastoid
CPT/HCPCS: 70551

== ENCOUNTER 2024-08-08 12:57 | Outpatient (CLI) | payer OTHER, SELFPAY ==
--- NOTE | ~2024-08-08 | MM_ITS ---
EXAMINATION: MM screening ronnie BI w sal HISTORY: Screening mammogram TECHNIQUE: Craniocaudal and mediolateral oblique 3-D tomosynthesis images were obtained and synthetic 2-D images were generated. CAD analysis was submitted and interpreted. COMPARISON: 07/27/2023, 07/08/2020 BREAST PARENCHYMAL COMPOSITION:Not Dense. The breasts are almost entirely fatty FINDINGS: No suspicious mass, calcification, or architectural distortion are identified in either jannette ast to suggest malignancy. There has been no suspicious interval change. IMPRESSION: No mammographic evidence of malignancy. Recommend routine screening mammography in one year. BI-RADS Category 1: Negative Reviewed, dictated and finalized at location . 'S CAPTAIN
== END 2024-08-08 12:58 | disposition home or self-care (01) ==
PROVIDERS: PCP Family Medicine; Visit Provider Family Medicine
DX: Z12.31 Encounter for screening mammogram for malignant neoplasm of breast (principal)
CPT/HCPCS: 77063; 77067

== ENCOUNTER 2024-11-23 11:21 | Outpatient (CLI) | payer OTHER, SELFPAY ==
--- NOTE | 2024-11-23 09:00 | ECG_ITS ---
Test Date: 2024-11-23 09:28:36 Measurements Intervals [place] Rate: 58 P: 16 OK: 149 QRS: 29 QRSD: 83 T: 60 QT: 538 QTc: 529 Interpretive Statements SINUS BRADYCARDIA PROLONGED QT INTERVAL CRITICAL TEST RESULT No previous ECG available for comparison Electronically Signed On 11-24-2024 11:46:56 CDT by Domonique Aragon M.D.
--- OUTSIDE RECORDS SUMMARY | 2024-11-24 12:42 | XMS_ITS ---
Author Organization [facility] Care Team Providers Care Dry Cleaner Presser Name Role Phone DAINA RUGGIERO Unavailable Unavailable Allergies and adverse reactions Code CodeSystem Substance Reaction Severity StartDate Concern Status 7512 RXNORM Norepinephrine Unknown 02/11/2015 active Care Team Name Role Address Phone Organization Dates DAINA RUGGIERO PCP [address] [place] [address], [phone], [place] (Office): : [facility] 04/30/2015 - 06/25/2015 Immunizations Immunization Status Vaccine Details Vaccine Code CodeSystem Date Notes Influenza cancelled Influenza, high-dose, split virus, quadrivalent, injectable, preservative free 197 CVX created date: 05/09/2015 consent date: 05/09/2015 TB 2 Step Mantoux Skin Test completed tuberculin skin test; unspecified formulation lotNumber: [id number] expiry: 05/25/2016 Mfg: TUBERCULIN PURIFIED PROTEIN Given 0.1 ml Right Forearm intradermally Step 2 of Multi-step with next step required 98 CVX created date: 02/21/2015 consent date: 02/21/2015 administer ed date: 02/21/2015 Educated by cali on 02/21/2015 TB 2 Step Mantoux Skin Test completed tuberculin skin test; unspecified formulation lotNumber: [id number] expiry: 05/25/2016 Mfg: TUBERCULIN PURIFIED PROTEIN Given 0.1 ml Right Forearm intradermally Step 1 of Multi-step with next step required 98 CVX created date: 02/12/2015 consent date: 02/12/2015 administer ed date: 02/12/2015 Educated by on 02/12/2015 Mental Status Section Date Assessment Total Score Description 06/25/2015 BIMS 15 cognitively int act PHQ-9 05 mild depression 05/08/2015 BIMS 15 cognitively int act PHQ-9 05 mild depression Problems Problem # Description Date of onset Resolved Date Code CodeSystem Concern Status 1 INSOMNIA, UNSPECIFIED 06/06/[address] active 2 DIFFICULTY IN WALKING, NOT ELSEWHERE CLASSIFIED 04/30/[address] active 3 ENCOUNTER FOR OTHER SPECIFIED AFTERCARE 04/30/[address] active 4 ALTERED MENTAL STATUS, UNSPECIFIED 04/29/[address] active 5 BACTEREMIA 03/03/[address] active 6 CALCULUS OF KIDNEY 03/03/[address] active 7 ENTEROCOLITIS DUE TO CLOSTRIDIUM DIFFICILE 03/03/[address] active 8 UNSPECIFIED HYDRONEPHROSIS 03/03/[address] active 9 URINARY TRACT INFECTION, SITE NOT SPECIFIED 03/03/[address] active 10 ANEMIA, UNSPECIFIED 02/11/[address] active 11 CHRONIC DIASTOLIC (CONGESTIVE) HEART FAILURE 02/11/[address] active 12 CHRONIC RESPIRATORY FAILURE, UNSPECIFIED WHETHER WITH HYPOXIA OR HYPERCAPNIA 02/11/[address] active 13 ESSENTIAL (PRIMARY) HYPERTENSION 02/11/[address] active 14 GASTRO-ESOPHAGEAL REFLUX DISEASE WITHOUT ESOPHAGITIS 02/11/[address] active 15 HYPOTHYROIDISM, UNSPECIFIED 02/11/[address] active 16 MUSCLE WEAKNESS (GENERALIZED) 02/11/[address] active 17 MYOPATHY, UNSPECIFIED 02/11/[address] active 18 OBESITY, UNSPECIFIED 02/11/[address] active 19 OTHER IDIOPATHIC PERIPHERAL AUTONOMIC NEUROPATHY 02/11/[address] active 20 ST ELEVATION (STEMI) MYOCARDIAL INFARCTION OF UNSPECIFIED SITE 02/11/[address] active 21 TRACHEOSTOMY STATUS 02/11/[address] active 22 TYPE 2 DIABETES MELLITUS WITHOUT COMPLICATIONS 02/11/[address] active 23 UNSPECIFIED ATRIAL FIBRILLATION 02/11/[address] active Reason for Referral No Reasons for Referral Entered Social History Social History Observation Description Start Date End Date Code Code System Current Smoking Status Tobacco smoking consumption unknown 334786551 SNOMED CT Sex Assigned At Female 1960 05364-9 [facility] Vital Signs Code Code System Vitals Name Values and Units Timing Information 48786-9 [facility] Pain Level Value=0.0 06/25/2015 2339-0 [facility] Blood Sugar Value=89.0 Units=mg/dL 06/25/2015 98534-6 [facility] O2 % BldC Oximetry Value=95.0 Units= % 06/24/2015 30358-2 [facility] Weight Sfoyu=068.0 Units=Lbs 9279-1 [facility] Respiratory Rate Value=12.0 Units=/m in 05/24/2015 8462-4 [facility] Blood Pressure-Diastolic Value=98 Un its=mmHg 05/24/2015 8480-6 [facility] Blood Pressure-Systolic Zcacz=775 Un its=mmHg 05/24/2015 8310-5 [facility] Body Temperature Value=96.2 Units= F 05/24/2015 8867-4 [facility] Heart rate Value=70.0 Units=/min 8302-2 [facility] Height Value=63.0 Units=Inches 03/04/2015
--- NOTE | 2024-11-26 09:00 | P.PCNHOL_ITS ---
Holter/Event Monitor Holter/Event Monitor Date of procedure: 11/23/24 Holter/Event Procedure: 48 Hr Holter Monitor Indications: Atrial fibrillation Conclusion: 1. 48 hour holter monitor on 11/23/24. 2. Underlying rhythm is atrial fibrillation. HR range 40-98 bpm; average HR 64 bpm. HR at 40 bpm was at 4:58 am. 3. No other supraventricular arrhythmias. 4. There are 22 premature ventricular complexes. No ventricular tachycardia. 5. There is 1 long pause at 6.3 seconds at 13:12. There are several pauses at 2- 2.2 seconds long. 6. No symptoms available for correlation.
== END 2024-11-23 11:22 | disposition home or self-care (01) ==
PROVIDERS: PCP Family Medicine; Visit Provider Family Medicine
DX: Z86.79 Personal history of other diseases of the circulatory system (principal); R00.1 Bradycardia, unspecified
CPT/HCPCS: 93005; 93225; 93226

== ENCOUNTER 2025-03-09 12:28 | Emergency (ER) | payer OTHER, SELFPAY ==
[2025-03-09 12:30] VITALS: BP 156/68; PULSE 73; RESP 20; TEMP 36.9; O2SAT 97
--- OUTSIDE RECORDS SUMMARY | 2025-03-09 12:31 | XMS_ITS | Clinical Summary ---
Author Organization [facility] Address [address] [place] [address] Care Team Providers Care Airport Traffic Controller Name Role Phone Ricky Clarke MD Primary Care Provider Ras Mcneill MD Unavailable Allergies Active Allergy Reactions Criticality Noted Date Comments Norepinephrine Unknown 02/03/2019 Medications gabapentin (NEURONTIN) 300 MG capsuleIndicatio ns:neuropathy Take 1 capsule (300 mg total) by mouth 3 (three) times daily. Indications: neuropathy 08/03/19 Active levothyroxine 88 MCG tabletIndication s:hypothyroidism Take 1 tablet (88 mcg total) by mouth every morning. Indications: hypothyroidism 08/03/19 20 Active metFORMIN 500 MG tabletIndication s:diabetes Take 1 tablet (500 mg total) by mouth 2 (two) times daily with meals. Indications: diabetes 08/03/19 20 Active sertraline (ZOLOFT) 100 MG tabletIndication s:depression Take 1 tablet (100 mg total) by mouth daily. Indications: depression 08/03/19 20 Active vitamin C 500 MG tabletIndication s:supplement Take 1 tablet (500 mg total) by mouth daily. Indications: supplement 08/03/19 20 Active magnesium oxide 400 MG tabletIndication s:supplement Take 1 tablet (400 mg total) by mouth daily. Indications: supplement 08/03/19 Active NON FORMULARYIndicat ions:gas, indigestion Indications: gas, indigestion GAS X PRN 08/03/19 Active NON FORMULARYIndicat ions:lactose intolerance Indications: lactose intolerance LACTAID 08/03/19 Active atorvastatin 20 MG tabletIndication s:high cholesterol Take 1 tablet (20 mg total) by mouth nightly at bedtime. Indications: high cholesterol 08/03/19 Active aspirin 81 MG chewable tabletIndication s:anticoagulant Chew 1 tablet (81 mg total) by mouth daily. Indications: anticoagulant 08/03/19 Active OXYGENIndication s:copd, dyspnea 2 L/min by Nasal route continuous. Indications: copd, dyspnea Per pt 08/03/19 Active loperamide (IMODIUM A-D) 2 MG tabletIndication s:DIARRHEA Take 1 tablet (2 mg total) by mouth 3 (three) times daily as needed for Diarrhea. Indications: DIARRHEA 08/03/19 Active albuterol sulfate HFA 108 (90 Base) MCG/ACT inhalerIndicatio ns:shortness of breath, wheezing Inhale 2 puffs into the lungs every 4 (four) hours. Indications: shortness of breath, wheezing 08/03/19 Active acetaminophen 500 MG tabletIndication s:Pain Take 2 tablets (1,000 mg total) by mouth 3 (three) times daily as needed for Pain. Indications: Pain 12/05/19 Active famotidine 20 MG tabletIndication s:Acid Indigestion Take 1 tablet (20 mg total) by mouth 2 (two) times daily. Indications: Acid Indigestion 12/05/19 Active insulin glargine 100 UNIT/ML injection (PEN)Indications :Diabetes Mellitus Inject 10 Units into the skin nightly at bedtime. Indications: Diabetes 12/05/19 Active metoprolol tartrate 50 MG tabletIndication s:Hypertension Take 3 tablets (150 mg total) by mouth nightly at bedtime. Indications: High Blood Pressure 12/05/19 Active BIPAP MACHINEIndicatio ns:Obstructive sleep apnea Please provide patient with BiPAP machine. Inspiration pressure 21. Expiration pressure 11. Obstructive sleep apnea. G47.33. Please provide patient with mask, harness, tubing, filters, heated humidity and all supplies for BiPAP machine. X 99 refills Patient has home oxygen. Need to add oxygen 2 L/min to BiPAP. 1 Units 08/18/19 24 Active montelukast (SINGULAIR) 10 MG tabletIndication s:Moderate persistent asthma without complication (HHS/HCC) Take 1 tablet (10 mg total) by mouth nightly at bedtime. at bedtime 30 tablet 11 06/26/20 24 Active lisinopril (PRINIVIL) 5 MG tablet Take 1 tablet (5 mg total) by mouth daily. Active fluticasone (FLOVENT HFA) 110 MCG/ACT inhaler Inhale 2 puffs into the lungs 2 (two) times daily. Active metoprolol succinate ER (TOPROL-XL) 100 MG 24 hr tablet Take 1 tablet (100 mg total) by mouth nightly at bedtime. Active Active Problems Problem Noted Date Diagnosed Date Centrilobular emphysema ([facility]) 2023 Dependence on supplemental oxygen 06/26/2024 Pulmonary hypertension ([facility]) 023 Obstructive sleep apnea 02/16/2023 Excessive daytime sleepiness 12/14/2022 Moderate persistent asthma without complication ([facility]) 12/14/2022 Pulmonary fibrosis ([facility]) 12/14/2022 Hypertension, goal to be determined 08/01/2019 Dysphagia 07/30/2019 Hypothyroidism 07/30/2019 Community acquired pneumonia of left lung 2019 COPD exacerbation ([facility]) 07/27/2019 Type 2 diabetes mellitus ([facility]) 07/27 Gastroesophageal reflux disease without esophagi tis 07/27/2019 Neuropathy 07/27/2019 Encounters Date Type Department Care Team Description 03/04/2025 Orders Only [facility] [address] [place] [address] Ras Mcneill MD 03/04/2025 Orders Only [facility] [address] [place] [address] Ras Mcneill MD 03/02/2025 Results Follow-Up [facility] [place] [address] Ras Mcneill MD CLINIC - [address] [facility] - Today 02/06/2025 Telephone [facility] [address] [place] [address] Ras Mcneill MD Schedule Test 01/17/2025 8:00 AM CDT Telephone [facility] [address] [place] [address] Ras Mcneill MD Returned Call 12/31/2024 3:45 PM CDT Office Visit [facility] [address] [place] [address] Ras Mcneill MD Heart Problem 12/31/2024 3:30 PM CDT - 12/31/2024 11:59 PM CDT Hospital Encounter [facility] [address] [place] [address] Ras Mcneill MD Discharge Disposition: Home or Self Care (Routine Discharge) 12/31/2024 Travel 12/27/2024 Orders Only [facility] [address] [place] [address] Ras Mcneill MD 12/24/2024 Scan [facility] [address] [place] [address] Scanned, Doc Pccl 12/12/2024 Abstract [facility] [address] [place] [address] Abstract, Doc Pccl 12/11/2024 Telephone [facility] [address] [place] [address] Ras Mcneill MD Appointment Request from Last 3 Months Immunizations Immunization Administration Dates Next Due Afluria 36 MONTHS+ (Prefilled Syringe IIV4) 02/2020 Family History Medical History Relation Comments Heart Disease Brother Hypertension Brother Hyperlipidemia Father Hypertension Father Stroke Father No Known Problems Maternal Grandfather No Known Problems Maternal Grandmother Cancer Mother No Known Problems Paternal Grandfather No Known Problems Paternal Grandmother Epilepsy Sister 1 Parkinson's Disease Sister 2 Heart Sister 3 No Known Problems Sister 4 Relation Status Comments Brother Alive Father Maternal Grandfather Maternal Grandmother Mother Paternal Grandfather Paternal Grandmother Sister 1 Alive Sister 2 Alive Sister 3 Alive Sister 4 Alive Social History Tobacco Use Types Packs/Day Years Used Date Smoking Tobacco: Former Smokeless Tobacco: Never Tobacco Cessation:Counseling Given: Not Answered Alcohol Use Standard Drinks/Week Comments No 0 (1 standard drink = 0.6 oz pur e alcohol) AUDIT-C Answer Date Recorded Frequency of Alcohol Consumption Never 02/03/2019 Average Number of Drinks Not on file 019 Frequency of Binge Drinking Not on file 01/22 Comments No Sex and Gender Information Value Date Recorded Sex Assigned at Not on file Legal Sex Female 11:01 PM CDT Gender Identity Not on file Sexual Orientation Not on file Last Filed Vital Signs Vital Sign Reading Time Taken Comments Blood Pressure 105/56 12/31/2024 4:05 PM CDT Pulse 67 12/31/2024 4:05 PM CDT Temperature 36.8 C (98.2 F) 01/31/2020 1:42 PM CDT Respiratory Rate 18 12/31/2024 4:05 PM CDT Oxygen Saturation 98% 12/31/2024 4:05 PM CDT 2L Inhaled Oxygen Concentration - - Weight 95.7 kg (211 lb) 12/31/2024 4:05 PM CDT Height 160 cm (5' 3) 12/31/2024 4:05 PM CDT Body Mass Index 37.38 12/31/2024 4:05 PM CDT Plan of Treatment Upcoming Encounters Date Type Department Care Team (Late st Contact Info) Description 03/20/2025 9:30 AM CDT Appointment [facility] [place] [address] Ras Mcneill MD [address] [place] [address] 03/20/2025 11:30 AM CDT Office Visit [facility] [address] Parker Navarrete MD [address] [place], [place] [address] 04/10/2025 8:00 AM CDT Appointment [facility] [address] [place] [address] Ras Mcneill MD [address] [place] [address] 04/10/2025 8:30 AM CDT Appointment [facility] [address] [place], [place] [address] [address] Ras Mcneill MD [address] [place] [address] 04/10/2025 9:30 AM CDT Appointment [facility] [address] [place] [address] [place] [address] [place] [address] [place] [address] 04/10/2025 10:15 AM CDT Appointment [facility] [address] [place], [place] [address] [address] Ras Mcneill MD [address] [place] [address] 06/03/2025 8:[address] ENGINEERING TEACHER Office Visit [facility] [place] [address] Ras Mcneill MD [address] [place] [address] Health Maintenance Due Date Last Done Comments Colorectal Cancer Screening Colonoscopy (10 Years) 1960 Kidney Health Evaluation 1960 Hemoglobin A1C 1960 Diabetes: Retinopathy Eye Exam 1976 Hepatitis C 1976 DTaP, Tdap and Td Vaccines ( 1 - Tdap) 1977 Pneumococcal Vaccine: 50+ Ye ars (1 of 2 - PCV) 1977 Mammogram Screening 1998 Lipid Panel 07/27/2008 07/27/2007 Zoster Vaccines (1 of 2) 2008 RSV Immunization or 60+ Years (1 - Risk 60-74 years 1-dose series) 2018 Dexa Scan (General) 11/19/2023 COVID-19 Vaccine (1 - 2024-2 5 season) 2024 PHQ-2 (Physician [place]) 07/25/2024 Meningococcal B Vaccine Aged Out No l onger eligible based on patient's age to complete this topic Meningococcal Vaccine Aged Out No bruce mateus eligible based on patient's age to complete this topic RSV Immunizations Under 20 Months Aged Out No longer eligible based on patient's age to complete this topic Procedures Procedure Name Priority Date/Time Associated Diagnosis Comments MOBILE CONTINUOUS TELEMETRY Routine 02/27/2025 3:28 PM CDT Essential (primary) hypertension Hyperlipidemia, mixed Atrial fibrillation, unspecified type ([facility]) COPD exacerbation ([facility]) ECG 12-LEAD Routine 12/31/2024 3:58 PM CDT Hypertension, goal to be determined LIPID PANEL Routine 07/27/2007 3:[address] ENGINEERING TEACHER from Last 3 Months or Most Recently Relevant to Health Maintenance Results * CLINIC - [address] [facility] - Today (02/27/2025 3:28 PM CDT) [facility] - 02/27/2025 3:28 PM CDT Baseline Rhythm * The baseline rhythm was Atrial Fibrillation/Flutter CVR with heart rates ranged between 42 and 102 beats per minute, with average rate of 59 beats per minute. A-V Conduction * No Second Degree AV Block Type II. * No Third Degree AV Block. * 5 Pauses - the longest pause was 8.4s on 02/14 09:17. Supraventricular Arrhythmia * There were 33,465 Supraventricular Ectopic beats with a burden of 1%. * No Supraventricular Tachycardia. Ventricular Arrhythmia * There were 484 Ventricular Ectopic beats with a burden of <1%. * No Ventricular Tachycardia. Atrial Fibrillation * Atrial Fibrillation - the longest episode was 15h 08m 15.1s on 02/09 11:24, the fastest episode was 64 BPM on 02/09 11:24, and the slowest episode was 56BPM on 02/18 22:56. Patient Triggered Events * 9 patient triggered events, 7 had symptoms specified. Signed RAS MCNEILL MD, MS, FACC, RVPI [facility] [place], [place] us Ras Mcneill MD CV VASCULAR ORDERABLES Final Res ult Performing Organization Address City/[facility]/ZIP Co de Phone Number [facility] * ECG 12 lead (HOSPITAL PERFORMED ONLY) (12/31/2024 3:58 PM CDT) 12/31/2024 3:58 PM CDT Narrative [facility] - 12/31/2024 11:[address] PM [address]T [address] [place] [address] Test Date: 2024-12-31 Pat Name: COURT SHIRA Department: 3 Room: Gender: Female Chucker: : 1960 Requested By: RAS MCNEILL Order Number: [id number] Reading MD: Ras Mcneill Measurements Intervals [place] Rate: 70 P: 0 VA: 0 QRS: 39 QRSD: 81 T: 56 QT: 465 QTc: 502 Interpretive Statements ATRIAL FIBRILLATION LOW QRS VOLTAGE IN PRECORDIAL LEADS MODERATE ST DEPRESSION PROLONGED QT INTERVAL Procedure Note Ras Mcneill MD - 12/31/[address] [place] [address] Test Date: 2024-12-31 Pat Name: COURT SHIRA Department: 3 Room: Gender: Female Chucker: : 1960 Requested By: RAS MCNEILL Order Number: [id number] Reading MD: Ras Mcneill Measurements Intervals [place] Rate: 70 P: 0 VA: 0 QRS: 39 QRSD: 81 T: 56 QT: 465 QTc: 502 Interpretive Statements ATRIAL FIBRILLATION LOW QRS VOLTAGE IN PRECORDIAL LEADS MODERATE ST DEPRESSION PROLONGED QT INTERVAL us Ras Mcneill MD ECG ORDERABLES Final Result Performing Organization Address City/[facility]/ZIP Co de Phone Number [facility] * (ABNORMAL) LIPID PANEL (07/27/2007 3:[address] ENGINEERING TEACHER) HDL 41 >39 mg/dL [employer] TO EPIC CONVERSION LIPOPROTEIN (A) 103(H) 0 - 30 mg/dL [employer] TO EPIC CONVERSION LDL CONVERSION 135(H) <100 mg/dL [employer] TO EPIC CONVERSION CHOLESTEROL 193 <200 mg/dL [employer] TO EPIC CONVERSION TRIGLYCERIDES 108 <150 mg/dL [employer] TO EPIC CONVERSION VLDL CALCULATION 17 0 - 31 mg/dL [employer] TO EPIC CONVERSION CHOL/HDL RATIO 4.7(H) 0 - 4 [facility] [employer] TO EPIC CONVERSION CHOL/HDL RATIO 3.3(H) 0 - 3 [facility] TO EPIC CONVERSION APOLIPOPROTEIN B 113(H) 0 - 105 mg/dL [employer] TO EPIC CONVERSION NON HDL CHOLESTEROL 152(H) 0 - 130 mg/dL [employer] TO EPIC CONVERSION HOMOCYSTEINE (U) 10(H) 0 - 9 umol/l [employer] TO EPIC CONVERSION HOMOCYSTEINE (U) NORMAL LEVEL IS LESS THAN OR EQUAL TO 9 MILD IS 10 TO 15 umol/L MODERATE IS 16 [employer] TO EPIC CONVERSION 07/27/2007 3:[address] ENGINEERING TEACHER 07/27/2007 3:[address] ENGINEERING TEACHER us Generic Conversion Md [facility] Final R esult [employer] TO EPIC CONVERSION from Last 3 Months or Most Recently Relevant to Health Maintenance Additional Health Concerns 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 () 08/09/2018 08/09/2018 Insurance [employer] Advance Directives Documents on File Type Date Recorded Patient Captain'S Assistant Expl anation Power of Lecturer In Computer Science Advance Directives and Living Will 07/27/2019 10:10 AM 02/24/2016IL POA FOR HEALTH CARE Advance Directives and Living Will 11/21/2018 12:00 AM POWER OF CENSUS CLERK FO R HEALTH CARE Advance Directives and Living Will 11/06/2018 12:00 AM POWER OF CENSUS CLERK FO R HEALTH CARE Advance Directives and Living Will 09/15/2018 12:00 AM POWER OF CENSUS CLERK FO R HEALTH CARE Advance Directives and Living Will 07/21/2018 12:00 AM POWER OF CENSUS CLERK FOR HEALTH CARE Advance Directives and Living Will 04/21/2018 12:00 AM POWER OF CENSUS CLERK FO R HEALTH CARE Advance Directives and Living Will 04/21/2018 12:00 AM POWER OF CENSUS CLERK FO R HEALTH CARE Advance Directives and Living Will 03/01/2018 12:00 AM POWER OF CENSUS CLERK FO R HEALTH CARE Advance Directives and Living Will 03/01/2018 12:00 AM POWER OF CENSUS CLERK FO R HEALTH CARE Advance Directives and Living Will 02/06/2018 12:00 AM POWER OF CENSUS CLERK FO R HEALTH CARE Advance Directives and Living Will 02/06/2018 12:00 AM POWER OF CENSUS CLERK FO R HEALTH CARE Advance Directives and Living Will 10/04/2017 12:00 AM POWER OF CENSUS CLERK FO R HEALTH CARE Advance Directives and Living Will 10/04/2017 12:00 AM POWER OF CENSUS CLERK FO R HEALTH CARE Advance Directives and Living Will 09/28/2016 12:00 AM POWER OF CENSUS CLERK FO R HEALTH CARE Advance Directives and Living Will 09/16/2016 SHORT FORM POWER OF CENSUS CLERK Advance Directives and Living Will 09/16/2016 SHORT FORM POWER OF CENSUS CLERK Advance Directives and Living Will 07/31/2016 12:00 AM POWER OF CENSUS CLERK FO R HEALTH CARE Advance Directives and Living Will 03/04/2016 SHORT FORM POWER OF CENSUS CLERK Advance Directives and Living Will 03/04/2016 SHORT FORM POWER OF CENSUS CLERK Guardianship - Permanent 04/19/2015 12:00 AM PHYSICIAN CERTIFICATION STATEMENT * Full Code (Latest Code Status on File) Date Activated Date Inactivated Comments 12/13/2019 7:11 PM * Full Code Date Activated Date Inactivated Comments 07/27/2019 3:30 AM 08/01/2019 5:30 PM Care Teams Airport Traffic Controller Relationship Specialty Start Date End Date Ricky Clarke MD [address] [place] [phone] PCP - General FAMILY PRACTICE 02/03/19 Ras Mcneill MD [address] [place] [address] Consulting Physician CARDIOVASCULAR DISEASE 12/11/24
--- OUTSIDE RECORDS SUMMARY | 2025-03-09 12:31 | XMS_ITS | Clinical Summary ---
Author Organization [facility] [address] Address [address] [place] [address] Care Team Providers Care Clinical Education Consultant Name Role Phone Ricky Clarke MD Primary Care Provider Allergies Active Allergy Reactions Criticality Noted Date Comments Norepinephrine Other (See comments),Unknown Reaction: Other Medications ibuprofen (ADVIL,MOTRIN) 400 mg tablet Take 1 tablet (400 mg total) by mouth every 6 (six) hours as needed for pain for up to 30 doses 30 tablet 03/01/2025 Active acetaminophen (TYLENOL) 500 mg tablet Take 1-2 tablets (500-1,000 mg total) by mouth every 6 (six) hours as needed for pain (1 tablet for mild to moderate pain. 2 tablets for severe pain) 30 tablet 03/01/2025 Active Encounters Date Type Department Care Team Description 03/01/2025 8:36 PM CDT - 03/02/2025 12:03 AM CDT Emergency [facility] Emergency Department [address] [place] [address] Eduardo Grullon MD Adeoye, Opeolu Makanju, MD Fall, initial encounter (Primary Dx); Atrial fibrillation, unspecified type (HCC); Anticoagulated; Hematoma of scalp, initial encounter; Contusion of right thigh, initial encounter Discharge Disposition: Discharge to home or self care from Last 3 Months Social History Tobacco Use Types Packs/Day Years Used Date Smoking Tobacco: Never Assessed Personal Safety Answer Date Recorded Have you ever been in or are you currently in a harmful physical or emotional relationship or is someone making you feel afraid or unsafe? Denies 03/01/2025 Comments Unknown Sex and Gender Information Value Date Recorded Sex Assigned at Not on file Legal Sex Female 1:21 PM [employer] Gender Identity Not on file Sexual Orientation Not on file Last Filed Vital Signs Vital Sign Reading Time Taken Comments Blood Pressure 134/87 03/01/2025 11:00 PM CDT Pulse 72 03/01/2025 11:50 PM CDT Temperature 36.8 C (98.2 F) 03/01/2025 8:43 PM CDT Respiratory Rate 20 03/01/2025 11:50 PM CDT Oxygen Saturation 98% 03/01/2025 11:50 PM CDT Inhaled Oxygen Concentration - - Weight 97.1 kg (214 lb) 03/01/2025 8:43 PM CDT Height 160 cm (5' 3) 03/01/2025 8:43 PM CDT Body Mass Index 37.91 03/01/2025 8:43 PM CDT Plan of Treatment Health Maintenance Due Date Last Done Comments Breast Cancer Screening-Mammogram 1958 Colon Cancer Screening-Colonoscopy 1960 Depression Screening 1958 Fall Risk Assessment 1958 Hepatitis C Screening 1958 Osteoporosis Screening-Bone Density Scan 1958 DTaP/Tdap/Td Vaccine (1 - Tdap) 1969 Hepatitis B Screening 1976 Pneumococcal vaccine 65+ (1 of 2 - PCV) 1977 Zoster Vaccine (1 of 2) 2008 Well Visit 65+ 11/19/2023 Influenza Vaccine (#1) 2025 Procedures Procedure Name Priority Date/Time Associated Diagnosis Comments TROPONIN I HIGH-SENSITIVITY 2-HOUR Timed 03/01/2025 10:46 PM CDT PROTIME-INR STAT 03/01/2025 9:36 PM CDT XR HIP RIGHT W PELVIS 2 OR 3 VIEWS ED 03/01/2025 9:27 PM CDT XR CHEST 1 VIEW ED 03/01/2025 9:[address] RECON THORACIC AND LUMBAR SPINE W CONTRAST ED 03/01/2025 9:[address] CHEST ABDOMEN PELVIS W CONTRAST ED 03/01/2025 9:[address] HEAD AND CERVICAL SPINE WO CONTRAST ED Urgent/IP Urgent 03/01/2025 9:21 PM CDT ECG 12-LEAD STAT 03/01/2025 8:56 PM CDT POCT CREATININE - DEVICE Routine 03/01/2025 8:56 PM CDT EGFR STAT 03/01/2025 8:50 PM CDT DIFFERENTIAL AUTO STAT 03/01/2025 8:5 0 PM CDT TROPONIN I HIGH-SENSITIVITY SERIES (BASELINE, 2HR, 4HR, 6HR) STAT 03/01/2025 8:50 PM CDT TYPE AND SCREEN STAT 03/01/2025 8:50 PM CDT CBC WITH AUTO DIFFERENTIAL STAT 03/01/2025 8:50 PM CDT BASIC METABOLIC PANEL STAT 03/01/2025 8:50 PM CDT POCT GLUCOSE DEVICE Routine 03/01/2025 8 :45 PM CDT from Last 3 Months Results * Troponin I high-sensitivity 2-hour (03/01/2025 10:46 PM CDT) Trop I hs <4 <=17 ng/L Comment: Interpretive Data For further hscTnI resources including the diagnostic algorithm and an aid in interpretation, copy and paste this link: [email or web address]://bjhlab.testcatalog.org/[email or web address] Current Interpretive Data last revised 2020. Trop I hs delta 0 ng/L CERNER [facility]J Trop I hs interp Insignificant CERNER [facility] H Blood 03/01/2025 10:4 6 PM CDT 03/01/2025 11:11 PM CDT Darwin Mejia MD LAB BLOOD ORDERABLES Final Result Performing Organization Address [facility] de Phone Number [facility] [place] [address] * (ABNORMAL) Protime-INR (03/01/2025 9:36 PM CDT) PT 15.6(H) 10.2 - 13.5 sec INR 1.39(H) 0.90 - 1.20 [facility] Comment: Interpretive data Oral anticoagulant therapeutic ranges: Venous thromboembolism prophylaxis or treatment: 2.0-3.0 CARDIOLOGY Standard range: 2.0-3.0 High-intensity range: 2.5-3.5 Refer to indication-specific guidelines for appropriate target ranges for prosthetic heart valve replacement. Current interpretive data was last revised on 2019. Blood 03/01/2025 9:36 PM CDT 03/01/2025 9:49 PM CDT Eduardo Grullon MD LAB BLOOD ORDERABLES F inal Result Performing Organization Address [facility] de Phone Number [facility] [place] [address] * XR Hip Right 2 or 3 Views W Pelvis (03/01/2025 9:27 PM CDT) Anatomical Region Laterality Modality Lower Extremities, Hip, Pelvis Right C omputed Radiography 03/01/2025 9:34 PM CDT Impressions 03/02/2025 9:03 AM CDT Chest: Scattered bilateral interstitial opacities are better evaluated on same-day CT and favored to represent sequelae of prior infection/lung injury seen on remote prior CT on 01/06/2015. No pulmonary consolidation. No pneumothorax or pleural effusion. Stable cardiac mediastinal silhouette. Right hip: No acute fracture or dislocation. Normal alignment. Mild bilateral hip osteoarthritis. Excreted contrast within the urinary bladder. Dictated by: Lopez Chambers MD The radiology attending physician has personally reviewed this study, and had reviewed and/or edited this written report and agrees with it. Electronically signed by: Ajith Miranda M.D. Narrative 03/02/2025 9:03 AM CDT EXAMINATION: XR CHEST 1 VIEW, XR HIP RIGHT 2 OR 3 VIEWS W PELVIS HISTORY: AMS; r/o PNA COMPARISON: Same day CT Procedure Note Ajith Miranda MD PhD - 03/02/2025 EXAMINATION: XR CHEST 1 VIEW, XR HIP RIGHT 2 OR 3 VIEWS W PELVIS HISTORY: AMS; r/o PNA COMPARISON: Same day CT IMPRESSION: Chest: Scattered bilateral interstitial opacities are better evaluated on same-day CT and favored to represent sequelae of prior infection/lung injury seen on remote prior CT on 01/06/2015. No pulmonary consolidation. No pneumothorax or pleural effusion. Stable cardiac mediastinal silhouette. Right hip: No acute fracture or dislocation. Normal alignment. Mild bilateral hip osteoarthritis. Excreted contrast within the urinary bladder. Dictated by: Lopez Chambers MD The radiology attending physician has personally reviewed this study, and had reviewed and/or edited this written report and agrees with it. Electronically signed by: Ajith Miranda M.D. Darwin Mejia MD IMG XR PROCEDURES Final Re sult * XR Chest 1 View (03/01/2025 9:27 PM CDT) Anatomical Region Laterality Modality Body, Chest N/A Computed Radiogr aphy 03/01/2025 9:34 PM CDT Impressions 03/02/2025 9:03 AM CDT Chest: Scattered bilateral interstitial opacities are better evaluated on same-day CT and favored to represent sequelae of prior infection/lung injury seen on remote prior CT on 01/06/2015. No pulmonary consolidation. No pneumothorax or pleural effusion. Stable cardiac mediastinal silhouette. Right hip: No acute fracture or dislocation. Normal alignment. Mild bilateral hip osteoarthritis. Excreted contrast within the urinary bladder. Dictated by: Lopez Chambers MD The radiology attending physician has personally reviewed this study, and had reviewed and/or edited this written report and agrees with it. Electronically signed by: Ajith Miradna M.D. Narrative 03/02/2025 9:03 AM CDT EXAMINATION: XR CHEST 1 VIEW, XR HIP RIGHT 2 OR 3 VIEWS W PELVIS HISTORY: AMS; r/o PNA COMPARISON: Same day CT Procedure Note Ajith Miranda MD PhD - 03/02/2025 EXAMINATION: XR CHEST 1 VIEW, XR HIP RIGHT 2 OR 3 VIEWS W PELVIS HISTORY: AMS; r/o PNA COMPARISON: Same day CT IMPRESSION: Chest: Scattered bilateral interstitial opacities are better evaluated on same-day CT and favored to represent sequelae of prior infection/lung injury seen on remote prior CT on 01/06/2015. No pulmonary consolidation. No pneumothorax or pleural effusion. Stable cardiac mediastinal silhouette. Right hip: No acute fracture or dislocation. Normal alignment. Mild bilateral hip osteoarthritis. Excreted contrast within the urinary bladder. Dictated by: Lopez Chambers MD The radiology attending physician has personally reviewed this study, and had reviewed and/or edited this written report and agrees with it. Electronically signed by: Ajith Miranda M.D. Darwin Mejia MD IMG XR PROCEDURES Final Re sult * CT Recon Thoracic and Lumbar Spine W Contrast (C) (03/01/2025 9:21 PM CDT) Anatomical Region Laterality Modality Spine N/A Computed Tomogra phy 03/01/2025 9:50 PM CDT Impressions 03/02/2025 11:05 AM CDT 1. Right occipital scalp hematoma. No acute intracranial process. 2. No evidence of acute fracture in the cervical, thoracic, or lumbar spine. 3. 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 4. Soft tissue findings are better evaluated on concurrent CT chest abdomen pelvis. Please see that report. Dictated by: Vadim Ochoa MD The radiology attending physician has personally reviewed this study, and had reviewed and/or edited this written report and agrees with it. Electronically signed by: Nanci Dimas M.D. Narrative 03/02/2025 11:05 AM CDT EXAMINATION: 1. CT head without contrast 2. CT of the cervical spine without contrast 3. CT of the thoracic spine with contrast 4. CT of the lumbar spine with contrast HISTORY: 64-year-old female presenting after fall. Lumbar spine pain. TECHNIQUE: CT of the head was performed with images acquired from skull base to vertex without intravenous contrast. CT of the cervical spine was performed according to the standard protocol without intravenous contrast. Dedicated reconstructions of the thoracic and lumbar spine were generated using data from a CT of the chest, abdomen, and pelvis acquired with intravenous contrast according to standard protocol. COMPARISON: CT 12/28/2014 FINDINGS: HEAD: There is a moderate-sized right occipital and parietal scalp hematoma. There is no definite acute intracranial hemorrhage. Scattered ill-defined hypodensities in the periventricular and subcortical white matter are nonspecific, likely on the basis of chronic small vessel ischemic change. There is mild parenchymal volume loss. There are atherosclerotic calcifications of the intracranial vessels. There are multiple dental caries and periapical lucencies with several dental restorations in the maxilla and mandible. There is no acute intracranial hemorrhage. No mass effect or midline shift is present. The randall-white matter differentiation is normal. The visualized portions of the orbits are normal. The visualized portions of the mastoids are normal. The visualized portions of the paranasal sinuses are normal. No fractures are identified. CERVICAL SPINE: Multilevel degenerative changes in the cervical spine. There are varying levels of neuroforaminal stenosis. There is up to severe spinal canal stenosis at C4-7 secondary to posterior disc osteophyte complexes and ossification of posterior longitudinal ligament. Calcified pannus of the dens. Straightening of the normal cervical lordosis There is no acute fracture. Vertebral bodies are normal in height without compression fractures. The craniocervical junction is normal. No soft tissue abnormality is identified. THORACIC SPINE: Mild multilevel degenerative disc disease in the thoracic spine without high-grade neuroforaminal or spinal canal stenosis. There are 12 rib-bearing thoracic vertebra. The alignment of the thoracic spine is normal. There is no acute fracture. Vertebral bodies are normal in height without compression fractures. Intervertebral disk heights are normal. Soft tissues are better evaluated on concurrent CT chest abdomen pelvis. LUMBAR SPINE: Multilevel degenerative changes in the lumbar spine without high-grade osseous spinal canal or neuroforaminal stenosis. There are multilevel disc bulges at L3-L5 resulting in moderate spinal canal stenosis. There is stranding over the subcutaneous tissue of the lumbar spine is compatible with contusion. The soft tissues, including calcifications of the abdominal aorta are better evaluated on concurrent CT chest abdomen pelvis. The alignment of the lumbar spine is normal. There is no acute fracture. The vertebral bodies are normal in height without compression fractures. Procedure Note Nanci Dimas MD - 03/02/2025 EXAMINATION: 1. CT head without contrast 2. CT of the cervical spine without contrast 3. CT of the thoracic spine with contrast 4. CT of the lumbar spine with contrast HISTORY: 64-year-old female presenting after fall. Lumbar spine pain. TECHNIQUE: CT of the head was performed with images acquired from skull base to vertex without intravenous contrast. CT of the cervical spine was performed according to the standard protocol without intravenous contrast. Dedicated reconstructions of the thoracic and lumbar spine were generated using data from a CT of the chest, abdomen, and pelvis acquired with intravenous contrast according to standard protocol. COMPARISON: CT 12/28/2014 FINDINGS: HEAD: There is a moderate-sized right occipital and parietal scalp hematoma. There is no definite acute intracranial hemorrhage. Scattered ill-defined hypodensities in the periventricular and subcortical white matter are nonspecific, likely on the basis of chronic small vessel ischemic change. There is mild parenchymal volume loss. There are atherosclerotic calcifications of the intracranial vessels. There are multiple dental caries and periapical lucencies with several dental restorations in the maxilla and mandible. There is no acute intracranial hemorrhage. No mass effect or midline shift is present. The randall-white matter differentiation is normal. The visualized portions of the orbits are normal. The visualized portions of the mastoids are normal. The visualized portions of the paranasal sinuses are normal. No fractures are identified. CERVICAL SPINE: Multilevel degenerative changes in the cervical spine. There are varying levels of neuroforaminal stenosis. There is up to severe spinal canal stenosis at C4-7 secondary to posterior disc osteophyte complexes and ossification of posterior longitudinal ligament. Calcified pannus of the dens. Straightening of the normal cervical lordosis There is no acute fracture. Vertebral bodies are normal in height without compression fractures. The craniocervical junction is normal. No soft tissue abnormality is identified. THORACIC SPINE: Mild multilevel degenerative disc disease in the thoracic spine without high-grade neuroforaminal or spinal canal stenosis. There are 12 rib-bearing thoracic vertebra. The alignment of the thoracic spine is normal. There is no acute fracture. Vertebral bodies are normal in height without compression fractures. Intervertebral disk heights are normal. Soft tissues are better evaluated on concurrent CT chest abdomen pelvis. LUMBAR SPINE: Multilevel degenerative changes in the lumbar spine without high-grade osseous spinal canal or neuroforaminal stenosis. There are multilevel disc bulges at L3-L5 resulting in moderate spinal canal stenosis. There is stranding over the subcutaneous tissue of the lumbar spine is compatible with contusion. The soft tissues, including calcifications of the abdominal aorta are better evaluated on concurrent CT chest abdomen pelvis. The alignment of the lumbar spine is normal. There is no acute fracture. The vertebral bodies are normal in height without compression fractures. IMPRESSION: 1. Right occipital scalp hematoma. No acute intracranial process. 2. No evidence of acute fracture in the cervical, thoracic, or lumbar spine. 3. 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 4. Soft tissue findings are better evaluated on concurrent CT chest abdomen pelvis. Please see that report. Dictated by: Vadim Ochoa MD The radiology attending physician has personally reviewed this study, and had reviewed and/or edited this written report and agrees with it. Electronically signed by: Nanci Dimas M.D. Darwin Mejia MD IMG CT PROCEDURES Final Re sult * CT Head and Cervical Spine WO Contrast (03/01/2025 9:21 PM CDT) Anatomical Region Laterality Modality Head and Neck N/A Computed Tomogra phy 03/01/2025 9:50 PM CDT Impressions 03/02/2025 11:05 AM CDT 1. Right occipital scalp hematoma. No acute intracranial process. 2. No evidence of acute fracture in the cervical, thoracic, or lumbar spine. 3. 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 4. Soft tissue findings are better evaluated on concurrent CT chest abdomen pelvis. Please see that report. Dictated by: Vadim Ochoa MD The radiology attending physician has personally reviewed this study, and had reviewed and/or edited this written report and agrees with it. Electronically signed by: Nanci Dimas M.D. Narrative 03/02/2025 11:05 AM CDT EXAMINATION: 1. CT head without contrast 2. CT of the cervical spine without contrast 3. CT of the thoracic spine with contrast 4. CT of the lumbar spine with contrast HISTORY: 64-year-old female presenting after fall. Lumbar spine pain. TECHNIQUE: CT of the head was performed with images acquired from skull base to vertex without intravenous contrast. CT of the cervical spine was performed according to the standard protocol without intravenous contrast. Dedicated reconstructions of the thoracic and lumbar spine were generated using data from a CT of the chest, abdomen, and pelvis acquired with intravenous contrast according to standard protocol. COMPARISON: CT 12/28/2014 FINDINGS: HEAD: There is a moderate-sized right occipital and parietal scalp hematoma. There is no definite acute intracranial hemorrhage. Scattered ill-defined hypodensities in the periventricular and subcortical white matter are nonspecific, likely on the basis of chronic small vessel ischemic change. There is mild parenchymal volume loss. There are atherosclerotic calcifications of the intracranial vessels. There are multiple dental caries and periapical lucencies with several dental restorations in the maxilla and mandible. There is no acute intracranial hemorrhage. No mass effect or midline shift is present. The randall-white matter differentiation is normal. The visualized portions of the orbits are normal. The visualized portions of the mastoids are normal. The visualized portions of the paranasal sinuses are normal. No fractures are identified. CERVICAL SPINE: Multilevel degenerative changes in the cervical spine. There are varying levels of neuroforaminal stenosis. There is up to severe spinal canal stenosis at C4-7 secondary to posterior disc osteophyte complexes and ossification of posterior longitudinal ligament. Calcified pannus of the dens. Straightening of the normal cervical lordosis There is no acute fracture. Vertebral bodies are normal in height without compression fractures. The craniocervical junction is normal. No soft tissue abnormality is identified. THORACIC SPINE: Mild multilevel degenerative disc disease in the thoracic spine without high-grade neuroforaminal or spinal canal stenosis. There are 12 rib-bearing thoracic vertebra. The alignment of the thoracic spine is normal. There is no acute fracture. Vertebral bodies are normal in height without compression fractures. Intervertebral disk heights are normal. Soft tissues are better evaluated on concurrent CT chest abdomen pelvis. LUMBAR SPINE: Multilevel degenerative changes in the lumbar spine without high-grade osseous spinal canal or neuroforaminal stenosis. There are multilevel disc bulges at L3-L5 resulting in moderate spinal canal stenosis. There is stranding over the subcutaneous tissue of the lumbar spine is compatible with contusion. The soft tissues, including calcifications of the abdominal aorta are better evaluated on concurrent CT chest abdomen pelvis. The alignment of the lumbar spine is normal. There is no acute fracture. The vertebral bodies are normal in height without compression fractures. Procedure Note Nanci Dimas MD - 03/02/2025 EXAMINATION: 1. CT head without contrast 2. CT of the cervical spine without contrast 3. CT of the thoracic spine with contrast 4. CT of the lumbar spine with contrast HISTORY: 64-year-old female presenting after fall. Lumbar spine pain. TECHNIQUE: CT of the head was performed with images acquired from skull base to vertex without intravenous contrast. CT of the cervical spine was performed according to the standard protocol without intravenous contrast. Dedicated reconstructions of the thoracic and lumbar spine were generated using data from a CT of the chest, abdomen, and pelvis acquired with intravenous contrast according to standard protocol. COMPARISON: CT 12/28/2014 FINDINGS: HEAD: There is a moderate-sized right occipital and parietal scalp hematoma. There is no definite acute intracranial hemorrhage. Scattered ill-defined hypodensities in the periventricular and subcortical white matter are nonspecific, likely on the basis of chronic small vessel ischemic change. There is mild parenchymal volume loss. There are atherosclerotic calcifications of the intracranial vessels. There are multiple dental caries and periapical lucencies with several dental restorations in the maxilla and mandible. There is no acute intracranial hemorrhage. No mass effect or midline shift is present. The randall-white matter differentiation is normal. The visualized portions of the orbits are normal. The visualized portions of the mastoids are normal. The visualized portions of the paranasal sinuses are normal. No fractures are identified. CERVICAL SPINE: Multilevel degenerative changes in the cervical spine. There are varying levels of neuroforaminal stenosis. There is up to severe spinal canal stenosis at C4-7 secondary to posterior disc osteophyte complexes and ossification of posterior longitudinal ligament. Calcified pannus of the dens. Straightening of the normal cervical lordosis There is no acute fracture. Vertebral bodies are normal in height without compression fractures. The craniocervical junction is normal. No soft tissue abnormality is identified. THORACIC SPINE: Mild multilevel degenerative disc disease in the thoracic spine without high-grade neuroforaminal or spinal canal stenosis. There are 12 rib-bearing thoracic vertebra. The alignment of the thoracic spine is normal. There is no acute fracture. Vertebral bodies are normal in height without compression fractures. Intervertebral disk heights are normal. Soft tissues are better evaluated on concurrent CT chest abdomen pelvis. LUMBAR SPINE: Multilevel degenerative changes in the lumbar spine without high-grade osseous spinal canal or neuroforaminal stenosis. There are multilevel disc bulges at L3-L5 resulting in moderate spinal canal stenosis. There is stranding over the subcutaneous tissue of the lumbar spine is compatible with contusion. The soft tissues, including calcifications of the abdominal aorta are better evaluated on concurrent CT chest abdomen pelvis. The alignment of the lumbar spine is normal. There is no acute fracture. The vertebral bodies are normal in height without compression fractures. IMPRESSION: 1. Right occipital scalp hematoma. No acute intracranial process. 2. No evidence of acute fracture in the cervical, thoracic, or lumbar spine. 3. 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 4. Soft tissue findings are better evaluated on concurrent CT chest abdomen pelvis. Please see that report. Dictated by: Vadim Ochoa MD The radiology attending physician has personally reviewed this study, and had reviewed and/or edited this written report and agrees with it. Electronically signed by: Nanci Dimas M.D. Darwin Mejia MD IMG CT PROCEDURES Final Re sult * CT Chest Abdomen Pelvis W Contrast (03/01/2025 9:21 PM CDT) Anatomical Region Laterality Modality Body N/A Computed Tomogra phy 03/01/2025 9:31 PM CDT Impressions 03/02/2025 9:05 AM CDT Ill-defined soft tissue stranding the right gluteal soft tissues may represent contusion in the setting of reported fall. Otherwise no acute traumatic injury in the chest, abdomen, or pelvis. Dictated by: Lopez Chambers MD The radiology attending physician has personally reviewed this study, and had reviewed and/or edited this written report and agrees with it. Electronically signed by: Ajith Miranda M.D. Narrative 03/02/2025 9:05 AM CDT EXAMINATION: CT of the chest, abdomen, and pelvis with intravenous contrast. HISTORY: Fall with chest and right hip pain. TECHNIQUE: Transaxial computed tomographic images of the chest, abdomen, and pelvis were obtained after the uneventful administration of 95 mL of Optiray 350 intravenous contrast according to the standard protocol. COMPARISON: Multiple prior studies most recently CT dated 01/06/2015. FINDINGS: CHEST: Scattered bilateral, right greater than left, areas of reticulation and mild architectural distortion which likely represent sequelae of prior lung injury when compared to CT dated 01/06/2015. Few tiny 3 mm right apical groundglass nodules. Bibasilar atelectasis No pulmonary consolidation. No pneumothorax or pleural effusion. Heart size is normal without pericardial effusion. Coronary vascular calcifications. Normal caliber intrathoracic aorta and great vessels with mild calcified atherosclerosis. No subclavicular, axillary, or mediastinal lymphadenopathy. ABDOMEN AND PELVIS: No suspicious hepatic mass. Patent portal venous vasculature. Mild periportal widening which can be seen with underlying hepatic fibrosis. Cholecystectomy. No intrahepatic or extra hepatic biliary ductal dilation. Normal spleen, pancreas, and adrenal glands. Kidneys enhance symmetrically without hydronephrosis. Bilateral cortical renal scarring and lobulated contour of the kidneys is not significantly changed. Too small to characterize bilateral hypoattenuating renal lesions may represent cysts. Normal caliber small and large bowel without evidence of obstruction. Normal appendix. Colonic diverticulosis without diverticulitis. Normal urinary ladder. Uterus is present without suspicious adnexal mass. No ascites or organized fluid collection. No pneumoperitoneum. No intra-abdominal or pelvic lymphadenopathy. Normal caliber intra-abdominal aorta with moderate calcified atherosclerosis. Ill-defined soft tissue stranding in the right gluteal soft tissues. No suspicious osseous lesions. Procedure Note Ajith Miranda MD PhD - 03/02/2025 EXAMINATION: CT of the chest, abdomen, and pelvis with intravenous contrast. HISTORY: Fall with chest and right hip pain. TECHNIQUE: Transaxial computed tomographic images of the chest, abdomen, and pelvis were obtained after the uneventful administration of 95 mL of Optiray 350 intravenous contrast according to the standard protocol. COMPARISON: Multiple prior studies most recently CT dated 01/06/2015. FINDINGS: CHEST: Scattered bilateral, right greater than left, areas of reticulation and mild architectural distortion which likely represent sequelae of prior lung injury when compared to CT dated 01/06/2015. Few tiny 3 mm right apical groundglass nodules. Bibasilar atelectasis No pulmonary consolidation. No pneumothorax or pleural effusion. Heart size is normal without pericardial effusion. Coronary vascular calcifications. Normal caliber intrathoracic aorta and great vessels with mild calcified atherosclerosis. No subclavicular, axillary, or mediastinal lymphadenopathy. ABDOMEN AND PELVIS: No suspicious hepatic mass. Patent portal venous vasculature. Mild periportal widening which can be seen with underlying hepatic fibrosis. Cholecystectomy. No intrahepatic or extra hepatic biliary ductal dilation. Normal spleen, pancreas, and adrenal glands. Kidneys enhance symmetrically without hydronephrosis. Bilateral cortical renal scarring and lobulated contour of the kidneys is not significantly changed. Too small to characterize bilateral hypoattenuating renal lesions may represent cysts. Normal caliber small and large bowel without evidence of obstruction. Normal appendix. Colonic diverticulosis without diverticulitis. Normal urinary ladder. Uterus is present without suspicious adnexal mass. No ascites or organized fluid collection. No pneumoperitoneum. No intra-abdominal or pelvic lymphadenopathy. Normal caliber intra-abdominal aorta with moderate calcified atherosclerosis. Ill-defined soft tissue stranding in the right gluteal soft tissues. No suspicious osseous lesions. IMPRESSION: Ill-defined soft tissue stranding the right gluteal soft tissues may represent contusion in the setting of reported fall. Otherwise no acute traumatic injury in the chest, abdomen, or pelvis. Dictated by: Lopez Chambers MD The radiology attending physician has personally reviewed this study, and had reviewed and/or edited this written report and agrees with it. Electronically signed by: Ajith Miranda M.D. us Darwin Mejia MD IMG CT PROCEDURES Final Re sult * ECG 12-LEAD (03/01/2025 8:56 PM CDT) Narrative [facility] - 03/01/2025 8:56 PM CDT Eduardo Grullon MD 03/01/2025 8:58 PM ECG 12 lead Date/Time: 03/01/2025 8:56 PM Performed by: Eduardo Grullon MD Authorized by: Darwin Mejia MD Quality: Tracing quality: Limited by artifact Rate: ECG rate: 73 ECG rate assessment: normal Rhythm: Rhythm: atrial fibrillation Ectopy: Ectopy: none QRS: QRS axis: Normal QRS intervals: Normal Conduction: Conduction: normal ST segments: ST segments: Normal T waves: T waves: flattening Flattening: AVL and III Other findings: Other findings: prolonged qTc interval Previous ECG: Previous ECG: Compared to current Date of previous EC12/24/2014 Comparison ECG info: A fib has replaced nsr Similarity: Changes noted Interpretation: Interpretation: non-specific Recommended Follow-up: Recommended follow up: further workup in the ED Darwin Mejia MD ECG ORDERABLES Final Resu lt Performing Organization Address [facility] Co de Phone Number [facility] * POCT creatinine (03/01/2025 8:56 PM CDT) Pathologist [facility] Creatinine POC 1.1 0.6 - 1.1 mg/dL Blood 03/01/2025 8:56 PM CDT 03/01/2025 8:56 PM CDT Eduardo Grullon MD LAB POCT ORDERABLES - DEVICE Final Result Performing Organization Address [facility] de Phone Number [facility] [place] [address] * Troponin I high-sensitivity series (baseline, 2hr, 4hr, 6hr) (03/01/2025 8:50 PM CDT) Pathologist [facility] Trop I hs 4 <=17 ng/L Comment: Interpretive Data For further hscTnI resources including the diagnostic algorithm and an aid in interpretation, copy and paste this link: [email or web address] Current Interpretive Data last revised 2020. Blood 03/01/2025 8:50 PM CDT 03/01/2025 9:02 PM CDT Darwin Mejia MD LAB BLOOD ORDERABLES Final Result Performing Organization Address [facility] de Phone Number [facility] [place] [address] * eGFR (03/01/2025 8:50 PM CDT) Pathologist [facility] eGFR 71 >=60 mL/min/1. 73 m2 Comment: Interpretive Data Reference Interval Normal >/= 90 mL/min/1.73m2 Mildly decreased* 60 - 89 mL/min/1.73m2 Mildly to moderately decreased 45 - 59 mL/min/1.73m2 Moderately to severely decreased 30 - 44 mL/min/1.73m2 Severely decreased 15 - 29 mL/min/1.73m2 Kidney Failure < 15 mL/min/1.73m2 *Relative to young adult level Estimated glomerular filtration rate is determined by the 2020 CKD-EPI equation recommended by the National Kidney Foundation (A Unifying Approach to GFR Estimation: Recommendations of the NKF-ASK Task Force on Reassessing the Inclusion of Race in Diagnosing Kidney Disease, JASN 2020). The CKD-EPI equation should not be used for patients with unstable renal function and has not been validated in children and those over 70. Current interpretive data was last reviewed 2021. Blood 03/01/2025 8:50 PM CDT 03/01/2025 9:02 PM CDT us Darwin Mejia MD LAB BLOOD ORDERABLES Final Result Performing Organization Address [facility] de Phone Number [facility] Department [place] [address] * Differential, auto (03/01/2025 8:50 PM CDT) Pathologist [facility] Neutrophil abs 5.01 1.50 - 6.50 K/cumm Imm gran abs 0.03 0.00 - 0.10 K/cumm [facility] Lymphocyte abs 1.90 0.80 - 3.30 K/cumm [facility] Monocyte abs 0.59 0.20 - 0.80 K/cumm [facility] Eosinophil abs 0.33 0.00 - 0.50 K/cumm [facility] Basophil abs 0.03 0.00 - 0.10 K/cumm [facility] Neutrophil pct 63.4 % [facility] Comment: Interpretive Data Percent cell count reference ranges are not reported, since discordance with absolute values may lead to misinterpretation of CBC data. Current Interpretive Data was last revised on 2017. Imm gran pct 0.4 % [facility] Comment: Interpretive Data Percent cell count reference ranges are not reported, since discordance with absolute values may lead to misinterpretation of CBC data. Current Interpretive Data was last revised on 2017. Lymphocyte pct 24.1 % [facility] Comment: Interpretive Data Percent cell count reference ranges are not reported, since discordance with absolute values may lead to misinterpretation of CBC data. Current Interpretive Data was last revised on 2017. Monocyte pct 7.5 % [facility] Comment: Interpretive Data Percent cell count reference ranges are not reported, since discordance with absolute values may lead to misinterpretation of CBC data. Current Interpretive Data was last revised on 2017. Eosinophil pct 4.2 % [facility] Comment: Interpretive Data Percent cell count reference ranges are not reported, since discordance with absolute values may lead to misinterpretation of CBC data. Current Interpretive Data was last revised on 2017. Basophil pct 0.4 % [facility] Comment: Interpretive Data Percent cell count reference ranges are not reported, since discordance with absolute values may lead to misinterpretation of CBC data. Current Interpretive Data was last revised on 2017. Blood 03/01/2025 8:50 PM CDT 03/01/2025 9:02 PM CDT us Darwin Mejia MD LAB BLOOD ORDERABLES Final Result [facility] [place] [address] * (ABNORMAL) CBC with auto differential (03/01/2025 8:50 PM CDT) WBC 7.89 3.80 - 9.90 K/cumm Hgb 11.5(L) 11.9 - 15.5 g/dL [facility] Hct 35.3(L) 35.6 - 45.5 % [facility] Plt 201 150 - 400 K/cumm [facility] MPV 9.6 9.1 - 12.3 fL [facility] RBC 3.77(L) 3.90 - 5.20 M/cumm [facility] MCV 93.6 81.3 - 96.4 fL [facility] MCH 30.5 27.1 - 33.3 pg [facility] MCHC 32.6 32.3 - 35.7 g/dL [facility] RDW CV 13.4 11.1 - 14.9 % [facility] RDW SD 45.5 35.7 - 48.1 fL [facility] NRBC abs 0.00 0.00 - 0.01 K/cumm [facility] Blood 03/01/2025 8:50 PM CDT 03/01/2025 9:02 PM CDT Darwin Mejia MD LAB BLOOD ORDERABLES Final Result Performing Organization Address City/[facility]/ZIP Co de Phone Number [facility] [place] [address] * Type and screen (03/01/2025 8:50 PM CDT) Jatinder, indirect Negative ABO Rh O Negative [facility] Blood 03/01/2025 8:50 PM CDT 03/01/2025 9:00 PM CDT Narrative [facility] - 03/01/2025 9:44 PM CDT Has the patient had Daratumumab or Isatuximab in the past 6 months?->Unknown us Dawrin Mejia MD LAB BLOOD BANK TEST ORDERA BLES Final Result [facility] [place] [address] * (ABNORMAL) Basic metabolic panel (03/01/2025 8:50 PM CDT) Pathologist [facility] Sodium 142 135 - 145 mmol/L Potassium, pl 4.7 3.3 - 4.9 mmol/L [facility] Chloride 103 97 - 110 mmol/L [facility] CO2 33(H) 22 - 32 mmol/L [facility] Anion gap 6 2 - 15 mmol/L [facility] BUN 21 6 - 25 mg/dL [facility] Creatinine 0.90 0.60 - 1.10 mg/dL [facility] Glucose 204(H) 70 - 199 mg/dL [facility] Comment: Interpretive Data Fasting glucose >/= 126 mg/dl is diagnostic for diabetes. Fasting is defined as no caloric intake for at least 8 hours. Fasting glucose between 100 mg/dl to 125 mg/dl is diagnostic of prediabetes. In a patient with classic symptoms of hyperglycemia or hyperglycemic crisis, a random glucose >/= 200 mg/dl is diagnostic for diabetes. In the absence of unequivocal hyperglycemia, results should be confirmed by repeat testing. The classification and Diagnosis of Diabetes Diabetes Care 2021; 46: S19-S40. Current interpretive data was last revised 2022. Calcium 8.9 8.5 - 10.3 mg/dL [facility] Blood 03/01/2025 8:50 PM CDT 03/01/2025 9:02 PM CDT us Darwin Mejia MD LAB BLOOD ORDERABLES Final Result [facility] [place] [address] * (ABNORMAL) POCT glucose (03/01/2025 8:45 PM CDT) Pathologist [facility] Glucose, POC 205(H) 70 - 199 mg/dL Blood 03/01/2025 8:45 PM CDT 03/01/2025 8:45 PM CDT us Notinfile Unknown LAB POCT ORDERABLES - DEVICE F inal Result [facility] [place] [address] from Last 3 Months Insurance [employer] BETTER [facility] [place] [employer] BETTER [facility] Care Teams Clinical Education Consultant Relationship Specialty Start Date End Date Ricky Clarke MD PCP - General Family Medicine 11/24/19
--- OUTSIDE RECORDS SUMMARY | 2025-03-09 12:31 | XMS_ITS | Encounter Summary ---
Author Organization [facility] Address [address] [place] [address] Care Team Providers Care Store Mgr Name Role Phone Ricky Clarke MD Primary Care Provider Latonya Frazier MD Unavailable Encounter Details Date Type Department Care Team (Late st Contact Info) Description 12/30/2018 Abstract [facility] CONVERSION [address] [place] [address] , Generic Conversion, Social History Tobacco Use Types Packs/Day Years Used Date Smoking Tobacco: Former Comments Unknown Sex and Gender Information Value Date Recorded Sex Assigned at Not on file Legal Sex Female 11:01 PM CDT Gender Identity Not on file Sexual Orientation Not on file documented as of this encounter Plan of Treatment Upcoming Encounters Date Type Department Care Team (Late st Contact Info) Description 03/20/2025 9:30 AM CDT Appointment [facility] [place] [address] Latonya Frazier MD [address] [place] [address] 03/20/2025 11:30 AM CDT Office Visit [facility] [address] [place] [phone] Parker Navarrete MD [address] [place], [place] [phone] 04/10/2025 8:00 AM CDT Appointment [facility] [address] [place] [address] Latonya Frazier MD [address] [place] [address] 04/10/2025 8:30 AM CDT Appointment [facility] [address] [place] [address] Latonya Frazier MD [address] [place] [address] 04/10/2025 9:30 AM CDT Appointment [facility] [address] [place] [address] [place] [address] [place] [address] [place] [address] 04/10/2025 10:15 AM CDT Appointment [address] [place] [address] Latonya Frazier MD [address] [place] [address] 06/03/2025 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 difficile 12/20/2018 12/20/2018 07/30/2019 9:20 AM CHROME PLATER HELPER documented as of this encounter Care Teams Store Mgr Relationship Specialty Start Date End Date Ricky Clarke MD [address] [place] [phone] PCP - General FAMILY PRACTICE 02/03/19 Latonya Frazier MD [address] [place] [address] Consulting Physician CARDIOVASCULAR DISEASE 12/11/24 documented as of this encounter
--- OUTSIDE RECORDS SUMMARY | 2025-03-09 12:31 | XMS_ITS | Encounter Summary ---
Author Organization [facility] Address [address] [place] [address] Care Team Providers Care Stationary Engineer Apprentice Name Role Phone Ricky Clarke MD Primary Care Provider Latonya Frazier MD Unavailable Encounter Details Date Type Department Care Team (Late st Contact Info) Description 03/04/2025 [facility] [address] [place], [place] [phone] Latonya Frazier MD [address] [place], [place] [phone] Social History Tobacco Use Types Packs/Day Years Used Date Smoking Tobacco: Former Smokeless Tobacco: Never Alcohol Use Standard Drinks/Week Comments No 0 [...] on file documented as of this encounter Functional Status * RETIRED Are you deaf or do you have serious difficulty hearing Answer Date of Assessment Author Status No 07/27/2019 3:39 AM BRAZER CONTROLLED ATMOSPHERIC FURNACE Activ e * RETIRED Are you blind or do you have serious difficulty seeing, even when wearing glasses? Answer Date of Assessment Author Status No 07/27/2019 3:39 AM BRAZER CONTROLLED ATMOSPHERIC FURNACE Activ e * Do you have serious difficulty walking or climbing stairs? Answer Date of Assessment Author Status Yes 07/27/2019 3:39 AM Osmar Cardoso NP Active * Do you have difficulty dressing or bathing? Answer Date of Assessment Author Status Yes 07/27/2019 3:39 AM Osmar Cardoso NP Active * Because of a physical, mental, or emotional condition, do you have difficulty doing errands alone such as visiting a doctor's office or shopping? Answer Date of Assessment Author Status No 07/27/2019 3:39 AM Osmar Cardoso NP Active documented as of this encounter Mental Status * Because of a physical, mental, or emotional condition, do you have serious difficulty concentrating, remembering, or making decisions? Answer Entry Date Author Status No 07/27/2019 3:39 AM Osmar Cardoso NP Active documented in this encounter Plan of Treatment Upcoming Encounters Date Type Department Care Team (Late st Contact Info) Description 03/20/2025 9:30 AM CDT Appointment [facility] [place] [address] Latonya Frazier MD [address] [place] [phone] 03/20/2025 11:30 AM CDT Office Visit [facility] [phone] Parker Navarrete MD [address] [place] [phone] 04/10/2025 8:00 AM CDT Appointment [facility] [place] [address] Latonya Frazier MD [address] [place] [phone] 04/10/2025 8:30 AM CDT Appointment [facility] [place] [address] Latonya Frazier MD [address] [place] [phone] 04/10/2025 9:30 AM CDT Appointment [facility] [address] [place] [address] [place] [address] [place] [address] [place] [address] 04/10/2025 10:15 AM CDT Appointment [facility] [address] [place] [address] [place] [address] Latonya Frazier MD [address] [place] [address] 06/03/2025 8:30 AM BRAZER CONTROLLED ATMOSPHERIC FURNACE Office Visit [facility] [place] [phone] Latonya Frazier MD [address] [place] [address] documented as of this encounter Visit Diagnoses Not on filedocumented in this encounter Additional Health Concerns Infection Onset Date Last Indicated Resolved Time 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
--- NOTE | 2025-03-09 12:34 | ED.GENADULT ---
HPI - General Adult General Chief complaint: Skin/Abscess/Foreign Body Stated complaint: rash Time Seen by Provider: 03/09/25 12:33 History of Present Illness HPI narrative: Court is a 64F with a PMH Of HSF, klCHF, DMII, hypothyroidism, COPD and HTN that presetned to the ED with a difuse erythematous itchy rash for a couple days. She is nauseated but no vomiting. No CP, dyspnea, wheezing, diarrhea. Related Data Home Medications ?Medication ?Instructions ?Recorded ?Confirmed ?Last Taken ?Type Acetaminophen Extra Strength 1,000 mg PO TID 11/23/19 11/17/20 Unknown History ascorbate calcium (vitamin C) 500 500 mg PO DAILY 11/23/19 11/17/20 Unknown History mg tablet aspirin 81 mg tablet,delayed 81 mg PO DAILY 11/23/19 11/17/20 Unknown History release (Adult Low Dose Aspirin) atorvastatin 20 mg tablet 20 mg PO DAILY 11/23/19 11/17/20 Unknown History famotidine 20 mg tablet (Acid 20 mg PO BID 11/23/19 11/17/20 Unknown History House Father (famotidine)) fluticasone propionate 110 1 puff inhalation BID 11/23/19 11/17/20 Unknown History mcg/actuation HFA aerosol inhaler (Flovent HFA) gabapentin 300 mg capsule 300 mg PO TID 11/23/19 11/17/20 Unknown History (Neurontin) ipratropium 0.5 mg-albuterol 3 mg 3 ml inhalation Q4H PRN Shortness 11/23/19 11/17/20 Unknown History (2.5 mg base)/3 mL nebulization Of Breath Or Wheezing soln levothyroxine 88 mcg tablet 88 mcg PO DAILY 11/23/19 11/17/20 Unknown History (Synthroid) loperamide 2 mg capsule (Imodium 2 mg PO Q4H PRN Abdominal 11/23/19 11/17/20 Unknown History A-D) Discomfort magnesium 200 mg tablet 400 mg PO DAILY 11/23/19 11/17/20 Unknown History metformin 500 mg tablet,extended 500 mg PO BID 11/23/19 11/17/20 Unknown History release 24 hr (Glucophage XR) sertraline 50 mg tablet 50 mg PO DAILY 11/23/19 11/17/20 Unknown History simethicone 125 mg chewable tablet 125 mg PO TID 11/23/19 11/17/20 Unknown History (Gas-X Extra Strength) Allergies Allergy/AdvReac Type Severity Reaction Status Date / Time norepinephrine Allergy Intermediate Rash Verified 03/09/25 12:38 Review of Systems Review of Systems: All systems reviewed & are unremarkable except as noted in HPI and below PMFSH Past Medical History Medical History (Updated 03/09/25 @ 12:52 by Mathieu Bernardo DO) HSV infection Diastolic CHF Paroxysmal atrial fibrillation Sepsis with critical illness myopathy and septic shock December 2014 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 2014 Chronic kidney disease Diabetic peripheral neuropathy Chronic respiratory failure with hypoxia, on home O2 therapy Dyslipidemia Type 2 diabetes mellitus Urolithiasis Hypothyroidism Hypertension COPD (chronic obstructive pulmonary disease) Surgical History Surgical History History of ear surgery History of tonsillectomy History of cholecystectomy History of History of tracheostomy Family History Family History Father Cerebrovascular accident Hypertension Heart attack Mother Goiter Sibling Scarlet fever Skin cancer Parkinson disease Epilepsy Social History Social History Smoking packs per day: 1 Smoking cigarettes per day: 20.0 Years smoked: 25 Smoking pack-years: 25.00 Smoking status: Former smoker Tobacco type: cigarettes Smoking end date: 07/25/99 Alcohol intake: former Alcohol use details: She denies any history of heavy alcohol use. Substance use: never Living arrangements: with family Additional living arrangements comments: She lives with her only child. He works outside the house. 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 She is now on disability. Gender identity (if verbalized by the patient): Female Spiritual care concerns: No Agree to blood products: Yes Exam Const: General: no acute distress and alert Orientation/consciousness: patient oriented x3 HENMT: Head: normal to inspection Ears: external ears normal and TM's normal bilaterally Mouth: Yes Normal oral and palatal mucosa present Throat: posterior oropharynx normal Eyes: Conjunctivae: conjunctivae normal Neck: Neck: normal visual inspection Chest: Chest palpation & inspection: normal inspection of the chest Resp: Effort & Inspection: normal respiratory effort Cardio: Rate: regular rate Rhythm: regular rhythm GI: Auscultation: normal bowel sounds Other: soft nontender abdomen Back/Spine/Pelvis: Back: no CVA tenderness Skin: General skin exam: normal color Other: diffuse erythematous rash over her torso and extremities Neuro: General: patient oriented x3 and moves all extremities Extrem: General: normal to inspection Psych: Appearance: grossly normal Mental Status: mental status grossly normal Thought content: Yes Normal thought content present Course Course Emergency Course: Given prednisone, zofran and hydroxyzine for the hives Vital Signs Vital signs: Vital Signs Temperature 98.4 F 03/09/25 12:30 Pulse Rate 73 03/09/25 12:30 Respiratory Rate 20 03/09/25 12:30 Blood Pressure 156/68 H 03/09/25 12:30 Pulse Oximetry 97 03/09/25 12:30 Oxygen Delivery Nasal Cannula 03/09/25 12:30 Oxygen Flow Rate 3 03/09/25 12:30 Temperature 98.4 F 03/09/25 12:30 Pulse Rate 73 03/09/25 12:30 Respiratory Rate 20 03/09/25 12:30 Blood Pressure 156/68 H 03/09/25 12:30 Pulse Oximetry 97 03/09/25 12:30 Oxygen Delivery Nasal Cannula 03/09/25 12:30 Oxygen Flow Rate 3 03/09/25 12:30 Medical Decision Making Vital Signs Vital Signs: Vital Signs Temperature 98.4 F 03/09/25 12:30 Pulse Rate 73 03/09/25 12:30 Respiratory Rate 20 03/09/25 12:30 Blood Pressure 156/68 H 03/09/25 12:30 Pulse Oximetry 97 03/09/25 12:30 Oxygen Delivery Nasal Cannula 03/09/25 12:30 Oxygen Flow Rate 3 03/09/25 12:30 Temperature 98.4 F 03/09/25 12:30 Pulse Rate 73 03/09/25 12:30 Respiratory Rate 20 03/09/25 12:30 Blood Pressure 156/68 H 03/09/25 12:30 Pulse Oximetry 97 03/09/25 12:30 Oxygen Delivery Nasal Cannula 03/09/25 12:30 Oxygen Flow Rate 3 03/09/25 12:30 Discharge Plan Discharge Clinical Impression: Acute urticaria Patient Disposition: Home Condition: Stable Instructions: Urticaria (ED) Patient Language: Turkmen Prescriptions: New hydroxyzine HCl 25 mg tablet 25 mg PO TID PRN (Reason: itching) Qty: 30 0RF ondansetron 4 mg tablet,disintegrating 4 mg PO Q8H Qty: 30 0RF prednisone 10 mg tablet 10 mg PO DIRECTED Qty: 15 0RF Rx Instructions: 5-4-3-2-1 No Action Acetaminophen Extra Strength tablet 1,000 mg PO TID atorvastatin 20 mg tablet 20 mg PO DAILY ipratropium-albuterol 0.5 mg-3 mg(2.5 mg base)/3 mL solution for nebulization 3 ml inhalation Q4H PRN (Reason: Shortness Of Breath Or Wheezing) loperamide [Imodium A-D] 2 mg Capsule 2 mg PO Q4H PRN (Reason: Abdominal Discomfort) aspirin [Adult Low Dose Aspirin] 81 mg Tablet,Delayed Release (Dr/Ec) 81 mg PO DAILY levothyroxine [Synthroid] 88 mcg tablet 88 mcg PO DAILY famotidine [Acid House Father (famotidine)] 20 mg Tablet 20 mg PO BID ascorbate calcium (vitamin C) 500 mg Tablet 500 mg PO DAILY gabapentin [Neurontin] 300 mg capsule 300 mg PO TID simethicone [Gas-X Extra Strength] 125 mg Tablet,Chewable 125 mg PO TID metformin [Glucophage XR] 500 mg tablet extended release 24 hr 500 mg PO BID Flovent HFA 110 mcg/actuation HFA aerosol inhaler 1 puff inhalation BID magnesium 200 mg Tablet 400 mg PO DAILY sertraline 50 mg Tablet 50 mg PO DAILY Spiriva with HandiHaler 18 mcg Capsule, W/Inhalation Device 1 cap inhalation QAM Qty: 30 0RF metoprolol succinate 50 mg tablet extended release 24 hr 150 mg PO HS Qty: 90 0RF Follow-up/Referrals: Vince,MD Ricky [Primary Care Provider] -
[2025-03-09] MEDS: ONDANSETRON HCL ODT 4 MG TABLET PO (12:41)
[2025-03-09 12:58] VITALS: BP 156/68; PULSE 73; RESP 20; TEMP 36.9; O2SAT 97
--- OUTSIDE RECORDS SUMMARY | 2025-03-09 13:06 | XMS_ITS | Encounter Summary ---
Author Organization [facility] Address [address] [place] [address] Care Team Providers Care Rrts Name Role Phone Ricky Clarke MD Primary Care Provider Latonya Frazier MD Unavailable Encounter Details Date Type Department Care Team (Late st Contact Info) Description 12/30/2018 Abstract S[facility] CONVERSION [address] [place] [address] , Generic Conversion, Social History Tobacco Use [...] Info) Description 03/20/2025 9:30 AM CDT Appointment [facility] [place] [address] Latonya Frazier MD [address] [place] [address] 03/20/2025 11:30 AM CDT Office Visit [facility] [address] [place] [phone] Parker Navarrete MD [address] [place], [place] [phone] 04/10/2025 8:00 AM CDT Appointment [facility] [address] [place] [address] Latonya Frazier MD [address] [place] [address] 04/10/2025 8:30 AM CDT Appointment [facility] [address] [place] [address] Latonya Frazier MD [address] [place] [address] 04/10/2025 9:30 AM CDT Appointment [facility] [address] [place] [address] [place] [address] [place] [address] [place] [address] 04/10/2025 10:15 AM CDT Appointment [address] [place] [address] Latonya Frazier MD [address] [place] [address] 06/03/2025 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 difficile 12/20/2018 12/20/2018 07/30/2019 9:20 AM BENZENE STILL UTILITY OPERATOR documented as of this encounter Care Teams Rrts Relationship Specialty Start Date End Date Ricky Clarke MD [address] [place] [phone] PCP - General FAMILY PRACTICE 02/03/19 Latonya Frazier MD [address] [place] [address] Consulting Physician CARDIOVASCULAR DISEASE 12/11/24 documented as of this encounter
--- OUTSIDE RECORDS SUMMARY | 2025-03-09 13:06 | XMS_ITS | Clinical Summary ---
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 Gender Identity Not on file Sexual Orientation [...] BLOOD ORDERABLES Final Result Performing Organization Address [facility] de Phone Number [facility] [place] [address] * (ABNORMAL) Protime-INR (03/01/2025 9:36 PM CDT) PT 15.6(H) 10.2 - 13.5 sec INR 1.39(H) 0.90 - 1.20 [facility] Comment: Interpretive data Oral anticoagulant therapeutic ranges: Venous thromboembolism prophylaxis or treatment: 2.0-3.0 CARDIOLOGY Standard range: 2.0-3.0 High-intensity range: 2.5-3.5 Refer to indication-specific guidelines for appropriate target ranges for prosthetic heart valve replacement. Current interpretive data was last revised on 2019. Blood 03/01/2025 9:36 PM CDT 03/01/2025 9:49 PM CDT Eduardo Grullon MD LAB BLOOD ORDERABLES F inal Result Performing Organization Address [facility] de Phone Number [facility] [place] [address] * XR Hip Right 2 or 3 [...] Please see that report. Dictated by: Vadim Ocoha MD The radiology attending physician has personally [...] 12-LEAD (03/01/2025 8:56 PM CDT) Narrative [facility] - 03/01/2025 8:56 PM CDT Eduardo Grullon [...] ORDERABLES Final Resu lt Performing Organization Address [facility] Co de Phone Number [facility] * POCT creatinine (03/01/2025 8:56 PM CDT) Pathologist [facility] Creatinine POC 1.1 0.6 - 1.1 mg/dL Blood 03/01/2025 8:56 PM CDT 03/01/2025 8:56 PM CDT Eduardo Grullon MD LAB POCT ORDERABLES - DEVICE Final Result Performing Organization Address [facility] de Phone Number [facility] [place] [address] * Troponin I high-sensitivity series (baseline, 2hr, 4hr, 6hr) (03/01/2025 8:50 PM CDT) Pathologist [facility] Trop I hs 4 <=17 ng/L Comment: Interpretive Data For further hscTnI resources including the diagnostic algorithm and an aid in interpretation, copy and paste this link: [email or web address].[email or web address].org/[email or web address] Current Interpretive Data last revised 2020. Blood 03/01/2025 8:50 PM CDT 03/01/2025 9:02 PM CDT Darwin Mejia MD LAB BLOOD ORDERABLES Final Result Performing Organization Address [facility] de Phone Number [facility] [place] [address] * eGFR (03/01/2025 8:50 PM CDT) Pathologist [facility] eGFR 71 >=60 mL/min/1. 73 m2 Comment: [...] BLOOD ORDERABLES Final Result Performing Organization Address [facility] de Phone Number [facility] [place] [address] * Differential, auto (03/01/2025 8:50 PM CDT) Pathologist [facility] Neutrophil abs 5.01 1.50 - 6.50 K/cumm Imm gran abs 0.03 0.00 - 0.10 K/cumm [facility] Lymphocyte abs 1.90 0.80 - 3.30 K/cumm [facility] Monocyte abs 0.59 0.20 - 0.80 K/cumm [facility] Eosinophil abs 0.33 0.00 - 0.50 K/cumm [facility] Basophil abs 0.03 0.00 - 0.10 K/cumm [facility] Neutrophil pct 63.4 % [facility] Comment: Interpretive Data Percent cell count reference ranges are not reported, since discordance with absolute values may lead to misinterpretation of CBC data. Current Interpretive Data was last revised on 2017. Imm gran pct 0.4 % [facility] Comment: Interpretive Data Percent cell count reference ranges are not reported, since discordance with absolute values may lead to misinterpretation of CBC data. Current Interpretive Data was last revised on 2017. Lymphocyte pct 24.1 % [facility] Comment: Interpretive Data Percent cell count reference ranges are not reported, since discordance with absolute values may lead to misinterpretation of CBC data. Current Interpretive Data was last revised on 2017. Monocyte pct 7.5 % [facility] Comment: Interpretive Data Percent cell count reference ranges are not reported, since discordance with absolute values may lead to misinterpretation of CBC data. Current Interpretive Data was last revised on 2017. Eosinophil pct 4.2 % [facility] Comment: Interpretive Data Percent cell count reference ranges are not reported, since discordance with absolute values may lead to misinterpretation of CBC data. Current Interpretive Data was last revised on 2017. Basophil pct 0.4 % [facility] Comment: Interpretive Data Percent cell count reference ranges are not reported, since discordance with absolute values may lead to misinterpretation of CBC data. Current Interpretive Data was last revised on 2017. Blood 03/01/2025 8:50 PM CDT 03/01/2025 9:02 PM CDT us Darwin Mejia MD LAB BLOOD ORDERABLES Final Result [facility] [place] [address] * (ABNORMAL) CBC with auto differential (03/01/2025 8:50 PM CDT) WBC 7.89 3.80 - 9.90 K/cumm Hgb 11.5(L) 11.9 - 15.5 g/dL [facility] Hct 35.3(L) 35.6 - 45.5 % [facility] Plt 201 150 - 400 K/cumm [facility] MPV 9.6 9.1 - 12.3 fL [facility] RBC 3.77(L) 3.90 - 5.20 M/cumm [facility] MCV 93.6 81.3 - 96.4 fL [facility] MCH 30.5 27.1 - 33.3 pg [facility] MCHC 32.6 32.3 - 35.7 g/dL [facility] RDW CV 13.4 11.1 - 14.9 % [facility] RDW SD 45.5 35.7 - 48.1 fL [facility] NRBC abs 0.00 0.00 - 0.01 K/cumm [facility] Blood 03/01/2025 8:50 PM CDT 03/01/2025 9:02 PM CDT Darwin Mejia MD LAB BLOOD ORDERABLES Final Result Performing Organization Address City/[facility]/ZIP Co de Phone Number [facility] [place] [address] * Type and screen (03/01/2025 8:50 PM CDT) Jatinder, indirect Negative ABO Rh O Negative [facility] Blood 03/01/2025 8:50 PM CDT 03/01/2025 9:00 PM CDT Narrative [facility] - 03/01/2025 9:44 PM CDT Has the patient had Daratumumab or Isatuximab in the past 6 months?->Unknown us Darwin Mejia MD LAB BLOOD BANK TEST ORDERA BLES Final Result [facility] [place] [address] * (ABNORMAL) Basic metabolic panel (03/01/2025 8:50 PM CDT) Pathologist [facility] Sodium 142 135 - 145 mmol/L Potassium, pl 4.7 3.3 - 4.9 mmol/L [facility] Chloride 103 97 - 110 mmol/L [facility] CO2 33(H) 22 - 32 mmol/L [facility] Anion gap 6 2 - 15 mmol/L [facility] BUN 21 6 - 25 mg/dL [facility] Creatinine 0.90 0.60 - 1.10 mg/dL [facility] Glucose 204(H) 70 - 199 mg/dL [facility] Comment: Interpretive Data Fasting glucose >/= 126 [...] 2022. Calcium 8.9 8.5 - 10.3 mg/dL [facility] Blood 03/01/2025 8:50 PM CDT 03/01/2025 9:02 PM CDT us Darwin Mejia MD LAB BLOOD ORDERABLES Final Result [facility] [place] [address] * (ABNORMAL) POCT glucose (03/01/2025 8:45 PM CDT) Pathologist [facility] Glucose, POC 205(H) 70 - 199 mg/dL Blood 03/01/2025 8:45 PM CDT 03/01/2025 8:45 PM CDT us Notinfile Unknown LAB POCT ORDERABLES - DEVICE F inal Result [facility] [place] [address] from Last 3 Months Insurance [employer] [facility] [place] [employer] [facility] Care Teams Wood Mechanist Relationship Specialty Start Date End Date Ricky Clarke MD PCP - General Family Medicine 11/24/19
--- OUTSIDE RECORDS SUMMARY | 2025-03-09 13:06 | XMS_ITS | Encounter Summary ---
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 Answer Date of Assessment Author Status No 07/27/2019 3:39 AM MUTUAL FUND MANAGER Activ e * Do you have serious [...] Info) Description 03/20/2025 9:30 AM CDT Appointment [facility] [place] [address] Latonya Frazier MD [address] [place] [phone] 03/20/2025 11:30 AM CDT Office Visit [facility] [address] Parker Navarrete MD [address] [place] [phone] 04/10/2025 8:00 AM CDT Appointment [facility] [place] [address] Latonya Frazier MD [address] [place] [phone] 04/10/2025 8:30 AM CDT Appointment [facility] [place] [address] Latonya Frazier MD [address] [place] [phone] 04/10/2025 9:30 AM CDT Appointment [facility] [address] [place] [address] [place] [address] [place] [address] [place] [address] 04/10/2025 10:15 AM CDT Appointment [facility] [address] [place] [address] [place] [address] Latonya Frazier MD [address] [place] [address] 06/03/2025 8:30 AM MUTUAL FUND MANAGER Office [facility] [place] [address] Latonya Frazier MD [address] [place] [address] documented as of this encounter Visit Diagnoses Not on filedocumented in this encounter Additional Health Concerns Infection Onset Date Last Indicated Resolved Time 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
--- OUTSIDE RECORDS SUMMARY | 2025-03-09 13:06 | XMS_ITS | Clinical Summary ---
Author Organization [facility] Address [address] [place] [address] Care Team Providers Care Jewel Grinder Name Role Phone Ricky Clarke MD Primary [...] Problem Noted Date Diagnosed Date Centrilobular emphysema ([facility]) 2023 Dependence on supplemental oxygen 06/26/2024 Pulmonary hypertension ([facility]) 023 Obstructive sleep apnea 02/16/2023 Excessive daytime sleepiness 12/14/2022 Moderate persistent asthma without complication ([facility]) 12/14/2022 Pulmonary fibrosis ([facility]) 12/14/2022 Hypertension, goal to be determined 08/01/2019 Dysphagia 07/30/2019 Hypothyroidism 07/30/2019 Community acquired pneumonia of left lung 2019 COPD exacerbation ([facility]) 07/27/2019 Type 2 diabetes mellitus ([facility]) 07/27 Gastroesophageal reflux disease without esophagi tis 07/27/2019 Neuropathy 07/27/2019 Encounters Date Type Department Care Team Description 03/04/2025 Orders Only [facility] [address] [place] [address] Ras Mcneill MD 03/04/2025 Orders Only [facility] [address] [place] [address] Ras Mcneill MD 03/02/2025 Results Follow-Up [facility] [place] [address] Ras Mcneill MD CLINIC - [id number] [facility] - Today 02/06/2025 Telephone [facility] [address] [place] [address] Ras Mcneill MD Schedule Test 01/17/2025 8:00 AM CDT Telephone [facility] [address] [place] [address] Ras Mcneill MD Returned Call 12/31/2024 3:45 PM CDT Office Visit [facility] [address] [place] [address] Ras Mcneill MD Heart Problem 12/31/2024 3:30 PM CDT - 12/31/2024 11:59 PM CDT Hospital Encounter [facility] [address] [place] [address] Ras Mcneill MD Discharge Disposition: Home or Self Care (Routine Discharge) 12/31/2024 Travel 12/27/2024 Orders Only [facility] [address] [place] [address] Ras Mcneill MD 12/24/[address] [facility] [address] [place] [address] Scanned, Doc Pccl 12/12/[address] [facility] [address] [place] [address] Abstract, Doc Pccl 12/11/[address] [facility] [address] [place] [address] Ras Mcneill MD Appointment Request from Last [...] Info) Description 03/20/2025 9:30 AM CDT Appointment [facility] [place] [address] Ras Mcneill MD [address] [place] [address] 03/20/2025 11:30 AM CDT Office Visit [facility] [address] Parker Navarrete MD [address] [place], [place] [address] 04/10/2025 8:00 AM CDT Appointment [facility] [address] [place] [address] Ras Mcneill MD [address] [place] [address] 04/10/2025 8:30 AM CDT Appointment [facility] [address] [place], [place] [address] [address] Ras Mcneill MD [address] [place] [address] 04/10/2025 9:30 AM CDT Appointment [facility] [address] [place] [address] [place] [address] [place] [address] [place] [address] 04/10/2025 10:15 AM CDT Appointment [facility] [address] [place], [place] [address] [address] Ras Mcneill MD [address] [place] [address] 06/03/2025 8:30 AM TRAY DRIER OPERATOR Office Visit [facility] [place] [address] Ras Mcneill MD [address] [place] [address] Health Maintenance Due Date Last Done Comments [...] - 2024-2 5 season) 2024 PHQ-2 (Physician [place]) 07/25/2024 Meningococcal B Vaccine Aged Out No [...] hypertension Hyperlipidemia, mixed Atrial fibrillation, unspecified type ([facility]) COPD exacerbation ([facility]) ECG 12-LEAD Routine 12/31/2024 3:58 PM CDT Hypertension, goal to be determined LIPID PANEL Routine 07/27/2007 3:05 PM TRAY DRIER OPERATOR from Last 3 Months or Most Recently Relevant to Health Maintenance Results * CLINIC - [address] [facility] - Today (02/27/2025 3:28 PM CDT) [...] MCNEILL MD, MS, FACC, RVPI [facility] [place], [place] us Ras Mcneill MD CV VASCULAR ORDERABLES Final Res ult Performing Organization Address City/[facility]/ZIP Co de Phone Number [facility] * ECG 12 lead (HOSPITAL PERFORMED ONLY) (12/31/2024 3:58 PM CDT) 12/31/2024 3:58 PM CDT Narrative [facility] - 12/31/2024 11:26 PM CDT [address] [place] [address] Test Date: 2024-12-31 Pat Name: COURT SHIRA Department: 3 Room: Gender: Female Estate Planning Attorney: : 1960 Requested By: RAS MCNEILL Order Number: [id number] Reading MD: Ras Mcneill Measurements Intervals [place] Rate: 70 P: 0 AR: 0 QRS: 39 QRSD: 81 T: 56 QT: 465 QTc: 502 Interpretive Statements ATRIAL FIBRILLATION LOW QRS VOLTAGE IN PRECORDIAL LEADS MODERATE ST DEPRESSION PROLONGED QT INTERVAL Procedure Note Ras Mcneill MD - 12/31/[address] [place] [address] Test Date: 2024-12-31 Pat Name: COURT SHIRA Department: 3 Room: Gender: Female Estate Planning Attorney: : 1960 Requested By: RAS MCNEILL Order Number: [id number] Reading MD: Ras Mcneill Measurements Intervals [place] Rate: 70 P: 0 AR: 0 QRS: 39 QRSD: 81 T: 56 QT: 465 QTc: 502 Interpretive Statements ATRIAL FIBRILLATION LOW QRS VOLTAGE IN PRECORDIAL LEADS MODERATE ST DEPRESSION PROLONGED QT INTERVAL us Ras Mcneill MD ECG ORDERABLES Final Result Performing Organization Address City/[facility]/ZIP Co de Phone Number [facility] * (ABNORMAL) LIPID PANEL (07/27/2007 3:05 PM TRAY DRIER OPERATOR) HDL 41 >39 mg/dL MEDINFORMATIX TO EPIC [...] MEDINFORMATIX TO EPIC CONVERSION 07/27/2007 3:05 PM TRAY DRIER OPERATOR 07/27/2007 3:05 PM TRAY DRIER OPERATOR us Generic Conversion Md [facility] Final R esult MEDINFORMATIX TO EPIC CONVERSION from Last 3 Months or Most Recently Relevant to Health Maintenance Additional Health Concerns 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 () 08/09/2018 08/09/2018 Insurance [employer] Advance Directives Documents on File Type Date Recorded Patient Rn Recruitment Expl anation Power of Chicken Sexer Advance Directives and Living Will 07/27/2019 10:10 AM 02/24/2016[place] POA FOR HEALTH CARE Advance Directives and Living Will 11/21/2018 12:00 AM POWER OF CARTON FOLDER FO R HEALTH CARE Advance Directives and Living Will 11/06/2018 12:00 AM POWER OF CARTON FOLDER FO R HEALTH CARE Advance Directives and Living Will 09/15/2018 12:00 AM POWER OF CARTON FOLDER FO R HEALTH CARE Advance Directives and Living Will 07/21/2018 12:00 AM POWER OF CARTON FOLDER FOR HEALTH CARE Advance Directives and Living Will 04/21/2018 12:00 AM POWER OF CARTON FOLDER FO R HEALTH CARE Advance Directives and Living Will 04/21/2018 12:00 AM POWER OF CARTON FOLDER FO R HEALTH CARE Advance Directives and Living Will 03/01/2018 12:00 AM POWER OF CARTON FOLDER FO R HEALTH CARE Advance Directives and Living Will 03/01/2018 12:00 AM POWER OF CARTON FOLDER FO R HEALTH CARE Advance Directives and Living Will 02/06/2018 12:00 AM POWER OF CARTON FOLDER FO R HEALTH CARE Advance Directives and Living Will 02/06/2018 12:00 AM POWER OF CARTON FOLDER FO R HEALTH CARE Advance Directives and Living Will 10/04/2017 12:00 AM POWER OF CARTON FOLDER FO R HEALTH CARE Advance Directives and Living Will 10/04/2017 12:00 AM POWER OF CARTON FOLDER FO R HEALTH CARE Advance Directives and Living Will 09/28/2016 12:00 AM POWER OF CARTON FOLDER FO R HEALTH CARE Advance Directives and Living Will 09/16/2016 SHORT FORM POWER OF CARTON FOLDER Advance Directives and Living Will 09/16/2016 SHORT FORM POWER OF CARTON FOLDER Advance Directives and Living Will 07/31/2016 12:00 AM POWER OF CARTON FOLDER FO R HEALTH CARE Advance Directives and Living Will 03/04/2016 SHORT FORM POWER OF CARTON FOLDER Advance Directives and Living Will 03/04/2016 SHORT FORM POWER OF CARTON FOLDER Guardianship - Permanent 04/19/2015 12:00 AM PHYSICIAN CERTIFICATION STATEMENT * Full Code (Latest Code Status on File) Date Activated Date Inactivated Comments 12/13/2019 7:11 PM * Full Code Date Activated Date Inactivated Comments 07/27/2019 3:30 AM 08/01/2019 5:30 PM Care Teams Jewel Grinder Relationship Specialty Start Date End Date Ricky Clarke MD [address] [place] [phone] PCP - General FAMILY PRACTICE 02/03/19 Ras Mcneill MD [address] [place] [address] Consulting Physician CARDIOVASCULAR DISEASE 12/11/24
== END 2025-03-09 12:58 | disposition home or self-care (01) ==
LOC: CHSED 13:04
PROVIDERS: Emergency Provider Family Medicine; PCP Family Medicine
DX: L50.9 Urticaria, unspecified (principal); J44.9 Chronic obstructive pulmonary disease, unspecified; E03.9 Hypothyroidism, unspecified; I13.0 Hypertensive heart and chronic kidney disease with heart failure and stage 1 through stage 4 chronic kidney disease, or unspecified chronic kidney disease; I50.30 Unspecified diastolic (congestive) heart failure; N18.9 Chronic kidney disease, unspecified; E11.22 Type 2 diabetes mellitus with diabetic chronic kidney disease; Z87.891 Personal history of nicotine dependence
CPT/HCPCS: 99283; A9270; J7512